=== PATIENT | female | born 1935 | race Two or more races ===

== ENCOUNTER 2016-12-30 01:05 | Emergency (ER) | payer MEDICARE, OTHER ==
[~2016-12-30] VITALS: Ht 137.2 cm; Wt 72.6 kg
[~2016-12-30 01:05] MED LIST: ACET325T16 PO; ASPI81TA44 PO; Calcium Acetate PO; FOLI0.8T3 PO; HYDR-2666 PO; PANT40TA5 PO; POLY17PO5 PO
[2016-12-30] MEDS ORDERED: LORAZEPAM 0.5 MG TABLET. PO ONE (01:30)
--- NOTE | 2016-12-30 01:42 | PHYS DOC ---
Past Medical History Past Medical History: GERD, Hypertension, Renal Failure Additional Past Medical Histor: ESRD on Dialysis Past Surgical History: Other Additional Past Surgical Histo: dialysis catheter R chest and L FA fistula Alcohol Use: None Drug Use: None Adult General Chief Complaint Chief Complaint: HYPERTENSION HPI HPI Patient is a 81 year old female who presents with hypertension and anxiety. Patient accompanied by family contribute to history. She is feeling anxious tonight and checked her blood pressure, with the systolic blood pressure 160 to 170s. She became concerned and wanted to get checked out of the hospital. She denies any pain, specifically chest pain. She also denies shortness of breath. Only other complaint is right upper extremity swelling for the past month, ever since she had an IV placed in the right arm. Review of Systems Review of Systems Constitutional: Denies fever or chills Eyes: Denies change in visual acuity or eye pain HENT: Denies nasal congestion or sore throat Respiratory: Denies cough or shortness of breath Cardiovascular: Denies chest pain GI: Denies abdominal pain, nausea, vomiting, bloody stools or diarrhea : Denies dysuria or hematuria Musculoskeletal: Denies back pain or joint pain. RUE swelling Integument: Denies rash or skin lesions Neurologic: Denies headache, focal weakness or sensory changes Psych: Anxiety Current Medications Current Medications Current Medications Medications (Trade) Dose Ordered Sig/Emmy Start Time Stop Time Status Last Admin Dose Admin Lorazepam (Ativan) 0.5 mg 1X ONCE 12/30/16 01:45 12/30/16 01:46 DC 12/30/16 01:39 0.5 MG Allergies Allergies Allergies Coded Allergies Type Severity Reaction Last Updated Verified No Known Drug Allergies 04/27/16 No Physical Exam Physical Exam Constitutional: Well developed, well nourished, no acute distress, non-toxic appearance HENT: Normocephalic, atraumatic, bilateral external ears normal Eyes: EOMI, conjunctiva normal, no discharge Neck: Normal range of motion, no stridor Cardiovascular: Heart rate normal, regular rhythm, no murmur Lungs & Thorax: Fine crackles throughout Abdomen: Bowel sounds normal, soft, non-distended, no TTP Skin: Warm, dry, no erythema, no rash Extremities: RUE edema, 2+ radial pulse, motor function and sensation to light touch intact Neurologic: Alert and oriented X 3, no gross deficits noted Psychologic: Anxious Current Patient Data Vital Signs Vital Signs Date Time Temp Pulse Resp B/P Pulse Ox O2 Delivery O2 Flow Rate FiO2 12/30/16 04:00 46 14 120/57 100 Room Air 12/30/16 01:07 97.6 97.6 Lab Values Laboratory Tests Test 12/30/16 01:50 White Blood Count 5.2x10^3/uL (4.0-11.0) Red Blood Count 2.86x10^6/uL (3.50-5.40) L Hemoglobin 10.0g/dL (12.0-15.5) L Hematocrit 30.0% (36.0-47.0) L Mean Corpuscular Volume 105fL (79-100) H Mean Corpuscular Hemoglobin 35pg (25-35) Mean Corpuscular Hemoglobin Concent 33g/dL (31-37) Red Cell Distribution Width 14.8% (11.5-14.5) H Platelet Count 261x10^3/uL (140-400) Neutrophils (%) (Auto) 63% (31-73) Lymphocytes (%) (Auto) 25% (24-48) Monocytes (%) (Auto) 10% (0-9) H Eosinophils (%) (Auto) 2% (0-3) Basophils (%) (Auto) 1% (0-3) Neutrophils # (Auto) 3.3x10^3uL (1.8-7.7) Lymphocytes # (Auto) 1.3x10^3/uL (1.0-4.8) Monocytes # (Auto) 0.5x10^3/uL (0.0-1.1) Eosinophils # (Auto) 0.1x10^3/uL (0.0-0.7) Basophils # (Auto) 0.0x10^3/uL (0.0-0.2) Sodium Level 144mmol/L (136-145) Potassium Level 4.6mmol/L (3.5-5.1) Chloride Level 104mmol/L (98-107) Carbon Dioxide Level 29mmol/L (21-32) Anion Gap 11 (6-14) Blood Urea Nitrogen 52mg/dL (7-20) H Creatinine 6.9mg/dL (0.6-1.0) H Estimated GFR (Cockcroft-Gault) 5.7 Glucose Level 116mg/dL (70-99) H Calcium Level 8.9mg/dL (8.5-10.1) Troponin I Quantitative < 0.017ng/mL (0.000-0.055) TZ-Uqi-R-Type Natriuretic Peptide 3929pg/mL (0-449) H Laboratory Tests 12/30/16 01:50 Laboratory Tests 12/30/16 01:50 EKG EKG EKG (my read): sinus rhythm, rate 62, LAD, intervals wnl, IVCD, nonspecific ST/ T changes Radiology/Procedures Radiology/Procedures CXR (my read): No significant change from prior RUE US: IMPRESSION 1. Extensive superficial edema in the right upper extremity. 2. Negative for acute deep venous thrombosis. Course & Med Decision Making Course & Med Decision Making Pertinent Labs and Imaging studies reviewed. (See chart for details) Patient is 81-year-old female who presents with hypertension, anxiety, right upper extremity swelling. Blood pressure okay in ED, will observe and treat if it becomes significantly elevated. Will give small dose of Ativan for anxiety. Will check EKG, chest x-ray, right upper extremity ultrasound, labs to evaluate. Imaging results as above. Unclear etiology of right upper extremity swelling, however given duration we will let her follow up with her primary care physician for this. Labs notable for anemia (at baseline), elevated BNP ( no prior to compare, likely largely due to ESRD). patient is scheduled for dialysis today so we will await that for fluid removal. Discussed results with patient and family; patient feeling better at this time. Discussed option of discharge with outpatient dialysis and then outpatient follow up vs admission; patient would like to go home. Discharged with instructions for follow up, return precautions. Dragon Disclaimer Dragon Disclaimer This electronic medical record was generated, in whole or in part, using a voice recognition dictation system. Departure Departure Impression: Primary Impression: Hypertension Additional Impression: Anxiety Disposition: HOME, SELF-CARE Condition: STABLE Referrals: NO PCP (PCP) Patient Instructions: Anxiety and Panic Attacks, Hypertension Additional Instructions: Thank you for allowing us to provide care today in the Emergency Department. Be sure you go to your dialysis appointment later today. Schedule a follow up appointment with your primary care doctor as soon as possible. Return promptly to the Emergency Department if you develop any new or concerning symptoms. Problem Qualifiers JACKIE,ABI MD Dec 30, 2016 01:42
[2016-12-30] MEDS ORDERED: LORAZEPAM 1 MG TABLET. PO ONE (01:45)
[2016-12-30 02:00] LABS: BASO % 1 % (0-3); EOS % 2 % (0-3); LYMPH # 1.3 x10^3/uL (1.0-4.8); LYMPH % 25 % (24-48); MEAN CORPUSCULAR HEMOGLOBIN 35 pg (25-35); MEAN CORPUSCULAR HGB CONC 33 g/dL (31-37); MEAN CORPUSCULAR VOLUME 105 fL (79-100); MONO % 10 % (0-9); NEUT % 63 % (31-73); PLATELET COUNT 261 x10^3/uL (140-400); RED BLOOD COUNT 2.86 x10^6/uL (3.50-5.40); RED CELL DISTRIBUTION WIDTH 14.8 % (11.5-14.5); WHITE BLOOD COUNT 5.2 x10^3/uL (4.0-11.0)
[2016-12-30 02:11] LABS: CALCIUM 8.9 mg/dL (8.5-10.1); CREATININE 6.9 mg/dL (0.6-1.0); GFR 5.7; POTASSIUM 4.6 mmol/L (3.5-5.1)
--- NOTE | 2016-12-30 02:50 | RAD ---
PROCEDURE Venous Doppler right upper extremity HISTORY RT ARM SWELLING SINCE LAST HOSPITAL STAY 1 MONTH AGO, TECHNIQUE Doppler ultrasound was utilized to evaluate the veins of the right upper extremity. Real-time imaging with compression, color-flow imaging and spectral Doppler with augmentation were utilized. COMPARISON None FINDINGS The jugular vein is compressible and has flow with color imaging. The visualized portion of the subclavian vein has flow with color imaging and normal antegrade laid flow with augmentation. The axillary and brachial veins are compressible and have flow with color imaging. The basilic vein is compressible and has flow with color imaging. There is edema in the upper arm and in the forearm. The radial and ulnar veins of the forearm were identified and have flow with color imaging although not optimally evaluated due to the edema. IMPRESSION 1. Extensive superficial edema in the right upper extremity. 2. Negative for acute deep venous thrombosis. Electronically signed by: Bar Landon MD (Dec 30, 2016 02:48:35)
[2016-12-30 04:00] VITALS: BP 120/57
--- NOTE | 2016-12-30 06:47 | EKG ---
[facility] [address] [place] [address] Test Date: 2016-12-30 Test Time: 01:43:58 Pat Name: MANUEL REY Department: Room: Gender: F Butt Trimmer: : 1935 Requested By: ABI MEJIA Order Number: [id number] Reading MD: Andrea Motley Measurements Intervals [place] Rate: 62 P: 2 [place]: 172 QRS: -58 QRSD: 130 T: 42 QT: 446 QTc: 455 Interpretive Statements SINUS RHYTHM ABNORMAL LEFT AXIS DEVIATION S1,S2,S3 PATTERN LEFT ANTERIOR FASCICULAR BLOCK NON SPECIFIC INTRAVENTRICULAR BLOCK RVH WITH REPOLARIZATION ABNORMALITY RI6.01 Unconfirmed report No previous ECG available for comparison Electronically Signed On 01-06-2017 10:27:07 CHEMICAL DEPENDENCY ATTENDANT by Andrea Motley
--- NOTE | 2016-12-30 07:15 | RAD ---
Chest, 2 views, 12/30/2016: History: Abnormal breath sounds Comparison is made to a study from 12/04/2016. A right-sided dialysis type catheter remains in place extending into the superior aspect of the right atrium. The heart is at the upper limits of normal in size. There is calcific plaquing of aorta. Prominent pulmonary markings are unchanged and are probably due to fibrosis. No superimposed acute infiltrate is seen. There is no evidence of pleural fluid. The bony structures are demineralized. There is a mild thoracic scoliosis with scattered degenerative changes. IMPRESSION: 1. Unchanged prominence of the pulmonary markings, probably due to fibrosis. 2. Aortic atherosclerosis. 3. No acute cardiopulmonary abnormality is detected.
== END 2016-12-30 04:25 | disposition home or self-care (01) ==
LOC: ER 01:05
DX: I12.0 Hypertensive chronic kidney disease with stage 5 chronic kidney disease or end stage renal disease (principal); F41.9 Anxiety disorder, unspecified; N18.6 End stage renal disease; K21.9 Gastro-esophageal reflux disease without esophagitis; M79.89 Other specified soft tissue disorders; Z99.2 Dependence on renal dialysis
CPT/HCPCS: 36415; 71020; 80048; 83880; 84484; 85027; 93005; 93971; 99285-25

== ENCOUNTER 2018-07-21 12:05 | Emergency (ER) | payer MEDICARE, OTHER ==
[~2018-07-21] VITALS: Ht 152.4 cm; Wt 59.0 kg
[~2018-07-21 12:05] MED LIST changes: -ASPI81TA44 PO; +ASPI81TA59 PO; -HYDR-2666 PO; +HYDR-2758 PO; +POLY17PO29 PO; -POLY17PO5 PO
[2018-07-21 12:10] VITALS: BP 102/55
[2018-07-21] MEDS ORDERED: HYDR-971 PO (13:14)
--- NOTE | 2018-07-21 13:15 | PHYS DOC ---
Past Medical History Past Medical History: GERD, Hypertension, Renal Failure Additional Past Medical Histor: ESRD on Dialysis Past Surgical History: Other Additional Past Surgical Histo: dialysis catheter R chest and L FA fistula Alcohol Use: None Drug Use: None Adult General Chief Complaint Chief Complaint: LOWER EXT PAIN [facility] HPI Patient is a 83 year old female who presents with chronic bilateral knee pain of which her pcp had given her joint injection for and was last given 6 months ago. Patient is having bilateral knee pain and is wanting Knee joint injections. Review of Systems Review of Systems Constitutional: Denies fever or chills [] Eyes: Denies change in visual acuity, redness, or eye pain [] HENT: Denies nasal congestion or sore throat [] Respiratory: Denies cough or shortness of breath [] Cardiovascular: No additional information not addressed in HPI [] GI: Denies abdominal pain, nausea, vomiting, bloody stools or diarrhea [] : Denies dysuria or hematuria [] Musculoskeletal: Denies back pain or bilateral knee joint pain [] Integument: Denies rash or skin lesions [] Neurologic: Denies headache, focal weakness or sensory changes [] Endocrine: Denies polyuria or polydipsia [] All other systems were reviewed and found to be within normal limits, except as documented in this note. Allergies Allergies Allergies Coded Allergies Type Severity Reaction Last Updated Verified No Known Drug Allergies 04/27/16 No Physical Exam Physical Exam Constitutional: Well developed, well nourished, no acute distress, non-toxic appearance. [] HENT: Normocephalic, atraumatic, bilateral external ears normal, oropharynx moist, no oral exudates, nose normal. [] Eyes: PERRLA, EOMI, conjunctiva normal, no discharge. [] Neck: Normal range of motion, no tenderness, supple, no stridor. [] Cardiovascular:Heart rate regular rhythm, no murmur [] Lungs & Thorax: Bilateral breath sounds clear to auscultation [] Abdomen: Bowel sounds normal, soft, no tenderness, no masses, no pulsatile masses. [] Skin: Warm, dry, no erythema, no rash. [] Back: No tenderness, no CVA tenderness. [] Extremities: bilateral knee joint tenderness, no cyanosis, no clubbing, ROM intact, no edema. [] Neurologic: Alert and oriented X 3, normal motor function, normal sensory function, no focal deficits noted. [] Psychologic: Affect normal, judgement normal, mood normal. [] Current Patient Data Vital Signs Vital Signs Date Time Temp Pulse Resp B/P (MAP) Pulse Ox O2 Delivery O2 Flow Rate FiO2 07/21/18 12:10 98.0 61 18 102/55 (71) Room Air 98.0 EKG EKG [] Radiology/Procedures Radiology/Procedures [] Course & Med Decision Making Course & Med Decision Making Patient is a 83 year old female who presents with chronic bilateral knee pain of which her pcp had given her joint injection for and was last given 6 months ago. Patient is having bilateral knee pain and is wanting Knee joint injections. Patient is told that she needs to follow up with her PCP and that we do not do joint injections in the ED. I told her that I would give her some pain medication to help with the pain until she can get in to see her PCP. Patient states she has a appointment in 2 weeks. Patient rates her pain as sharp and a 8/10. Upon examination the knee joints were slightly tender but not edematous, hot or red. Patient is afebrile. Homans sign is negative. Patient has no extremity edema and bilateral pedal pulses are present. Patient does not have normal ROM because of pain and stiffness. Patient is given a prescription for Odin. Patient to follow up with her PCP. [] Dragon Disclaimer Dragon Disclaimer This electronic medical record was generated, in whole or in part, using a voice recognition dictation system. Departure Departure Impression: Primary Impression: Arthritis Disposition: 01 HOME, SELF-CARE Condition: STABLE Referrals: RADHA REY (PCP) Patient Instructions: Arthritis, Nonspecific Additional Instructions: Follow up with you primary care doctor. Do not take more Tylenol with the Odin prescription. Scripts Hydrocodone/Apap 5-325 (NORCO 5-325 TABLET) 1 Each Tablet 1 TAB PO PRN Q6HRS PRN for PAIN, #10 TAB 0 Refills DO NOT TAKE MORE TYLENOL WITH THIS MEDICATION Prov: JOE CORRAL APRN 07/21/18 JOE CORRAL APRN Jul 21, 2018 13:15
== END 2018-07-21 13:35 | disposition home or self-care (01) ==
LOC: ER 12:05
DX: M17.0 Bilateral primary osteoarthritis of knee (principal); G89.29 Other chronic pain; K21.9 Gastro-esophageal reflux disease without esophagitis; I12.0 Hypertensive chronic kidney disease with stage 5 chronic kidney disease or end stage renal disease; N18.6 End stage renal disease; Z99.2 Dependence on renal dialysis
CPT/HCPCS: 99283

== ENCOUNTER → 2018-10-22 | Outpatient (CLI) | payer MEDICARE, OTHER ==
[~2018-10-22] MED LIST changes: -HYDR-2758 PO; +HYDR-2761 PO; +HYDR-3164 PO
--- NOTE | 2018-10-22 16:43 | KCIC ---
CHEST PA LATERAL Clinical indications: Fibrosis. COMPARISON: December 30, 2016. Findings: Chronic interstitial lung disease is again evident and is stable. No new lung infiltrate or pleural effusion or pulmonary edema or lung mass or pneumothorax is seen. Heart size mildly enlarged but stable. Right IJ central line is unchanged in position. The pulmonary vasculature, mediastinum and both britta are unremarkable. Scoliosis is seen. Impression: No new radiographic abnormality is seen. Chronic interstitial lung disease bilaterally. Electronically signed by: Sachin Rodriguez MD (10/22/2018 4:39 PM) [place] [id number]
== END | disposition home or self-care (01) ==
LOC: KCIC 13:10
PROVIDERS: ATTEND Internal Medicine Cardiovascular Disease
DX: J84.89 Other specified interstitial pulmonary diseases (principal); I51.7 Cardiomegaly; M41.84 Other forms of scoliosis, thoracic region
CPT/HCPCS: 71046

== ENCOUNTER 2020-04-25 15:47 | Emergency (ER) | payer MEDICARE, OTHER ==
[~2020-04-25] VITALS: Ht 152.4 cm; Wt 55.0 kg
[~2020-04-25 15:47] MED LIST changes: +ACET-2061 PO; -ACET325T16 PO; -PANT40TA5 PO; +PANT40TA77 PO
--- NOTE | 2020-04-25 17:43 | PHYS DOC ---
Past Medical History Past Medical History: GERD, Hypertension, Renal Failure Additional Past Medical Histor: ESRD on Dialysis Past Surgical History: Other Additional Past Surgical Histo: dialysis catheter R chest and L FA fistula Smoking Status: Never Smoker Alcohol Use: None Drug Use: None General Adult EDM: Chief Complaint: HIP PAIN HPI: HPI: Patient is a 85 year old female who presents with seen here after a fall. Patient fell on and was evaluated at an urgent care on Friday images were done of year of her hip, knee, pelvis. Patient received a phone call today that said she had a fracture of her pelvis, possible fracture of left femur, and T12 fracture. Patient is denying pain to left hip and pelvis. Patient was ambulatory with walker upon ER arrival. Patient is reporting some pain to the left posterior aspect of her calf. Urgent care informed her that she should get an ultrasound of that leg to rule out a DVT. Patient does have bruising noted to her left hip. There is 1+ edema to her left lower leg. Patient's family member reports that she does complain of pain when she stands and bears all of her weight on the left leg. Neuro intact and strong pulses. Review of Systems: Review of Systems: Musculoskeletal: Denies back pain or joint pain. Possible hip fracture. [] Heart Score: Risk Factors: Risk Factors: DM, Current or recent (<one month) smoker, HTN, HLP, family history of CAD, obesity. Risk Scores: Score 0 - 3: 2.5% MACE over next 6 weeks - Discharge Home Score 4 - 6: 20.3% MACE over next 6 weeks - Admit for Clinical Observation Score 7 - 10: 72.7% MACE over next 6 weeks - Early Invasive Strategies Allergies: Allergies: Allergies Coded Allergies Type Severity Reaction Last Updated Verified No Known Drug Allergies 04/27/16 No Physical Exam: PE: Constitutional: Well developed, well nourished, no acute distress, non-toxic appearance. [] HENT: Normocephalic, atraumatic, bilateral external ears normal, oropharynx moist, no oral exudates, nose normal. [] Eyes: PERRLA, EOMI, conjunctiva normal, no discharge. [] Neck: Normal range of motion, no tenderness, supple, no stridor. [] Cardiovascular:Heart rate regular rhythm, no murmur [] Lungs & Thorax: Bilateral breath sounds clear to auscultation [] Abdomen: Bowel sounds normal, soft, no tenderness, no masses, no pulsatile masses. [] Skin: Warm, dry, no erythema, no rash. Left hip bruising.[] Back: No tenderness, no CVA tenderness. [] Extremities: Left medial calf tenderness, no cyanosis, no clubbing, ROM intact, Left leg 1+ edema. [] Neurologic: Alert and oriented X 3, normal motor function, normal sensory funct ion, no focal deficits noted. [] Psychologic: Affect normal, judgement normal, mood normal. [] Current Patient Data: Vital Signs: Vital Signs Date Time Temp Pulse Resp B/P (MAP) Pulse Ox O2 Delivery O2 Flow Rate FiO2 04/25/20 16:14 98.3 60 20 154/65 (94) 97 Room Air 98.3 EKG: EKG: [] Radiology/Procedures: Radiology/Procedures: [] Impression: [facility] [address] [place], [place] [id number] IMAGING REPORT Signed PATIENT: MANUEL REY ACCOUNT: [id number] : 1935 LOCATION: ER AGE: 85 SEX: F EXAM STATUS: REG ER ORD. PHYSICIAN: JOE CORRAL APRN REASON: POSSIBLE FRACTURE PROCEDURE: LEFT FEMUR XRAY EXAM: AP pelvis, lateral views of both hips AP and lateral view of the left femur DATE: 04/25/2020 5:32 PM INDICATION: Reason: POSSIBLE FRACTURE / Spl. Instructions: / History: COMPARISON: 04/03/2017 FINDINGS: Marked osteopenia limits evaluation for acute fracture. Mild deformity of the left superior and inferior pubic ramus likely from old fractures as seen on 04/03/2017. There is cortical offset at the right superior pubic ramus suspicious for nondisplaced fracture. No definite left femur fracture is seen. Atherosclerotic vascular calcifications are seen. Large volume colonic stool content and small and large bowel gas is seen obscuring the sacrum and pelvic wings.. Sacral plasty changes are seen. IMPRESSION: 1. Marked osteopenia as well as prominent overlying bowel gas and stool significantly limits evaluation for acute fracture. Within these constraints: 2. Suspected acute right superior pubic ramus fracture. This can be confirmed by CT or MRI. 3. Chronic appearing left superior and inferior pubic rami fractures. Electronically signed by: Dyllan Portillo MD (04/25/2020 6:11 PM) [facility] DICTATED and SIGNED BY: DYLLAN PORTILLO MD DATE: 04/25/20 181 [facility] [address] [place] [address] IMAGING REPORT Signed PATIENT: MANUEL REY ACCOUNT: [id number] : 1935 LOCATION: ER AGE: 85 SEX: F EXAM STATUS: REG ER ORD. PHYSICIAN: JOE OCRRAL APRN REASON: SWELLING PROCEDURE: VENOUS LOWER EXTREMITY LEFT VENOUS LOWER EXTREMITY LEFT 04/25/2020 5:18 PM Clinical Information: Swelling Comparison: None. Technique: Multiple grayscale, color Doppler, and spectral Doppler sonographic images of the lower extremity venous structures were obtained. Findings: The left common femoral, femoral, and popliteal veins exhibit normal compression, respiratory phasicity, and augmentation. No intraluminal thrombi are identified. Color Doppler flow is demonstrated in the left posterior tibial veins. Greater saphenous vein patent at the saphenofemoral junction. Lesser saphenous vein is thrombosed. Popliteal fossa complex fluid collection measures 3.4 x 2.3 x 0.5 cm. Impression: 1. No evidence of deep venous thrombosis. 2. Lesser saphenous vein is thrombosed. 3. Popliteal fossa complex fluid collection measures 3.4 x 2.3 x 0.5 cm. Complicated Yee's cyst versus hematoma or ruptured Yee cyst may have similar appearance. Electronically signed by: Richie Beasley MD (04/25/2020 7:01 PM) [facility] DICTATED and SIGNED BY: RICHIE BEASLEY MD DATE: 04/25/20 190 [facility] [address] [place] [address] IMAGING REPORT Signed PATIENT: MANUEL REY ACCOUNT: [id number] : 1935 LOCATION: ER AGE: 85 SEX: F EXAM STATUS: REG ER ORD. PHYSICIAN: JOE CORRAL APRN REASON: POSSIBLE FRACTURE PROCEDURE: LUMBAR SPINE MIN 4V THORACIC SPINE 3V, LUMBAR SPINE MIN 4V 04/25/2020 5:18 PM INDICATION: Fracture COMPARISON: None available. TECHNIQUE: 3 views of the thoracic spine and 5 views of the lumbar spine are provided. FINDINGS/ IMPRESSION: 1. Thoracic spine: There is extra convex scoliosis of thoracic spine. Diffuse osteopenia limits evaluation of fine osseous detail. If there is persistent clinical concern, further evaluation with CT may be of benefit. Mild height loss is suspected in the lower thoracic spine. 2. Lumbar spine: There is subtle height loss involving L5 with increased sclerosis which could represent an acute compression deformity without significant height loss. Bilateral sacral spinal augmentation changes are identified. Alignment of the lumbar spine is normal. Electronically signed by: Richie Beasley MD (04/25/2020 6:15 PM) [facility] DICTATED and SIGNED BY: RICHIE BEASLEY MD DATE: 04/25/201814 Course & Med Decision Making: Course & Med Decision Making Pertinent Labs and Imaging studies reviewed. (See chart for details) Alert and oriented. Speaks in full clear sentences. Denies any pain. See HPI. Patient is Micronesian-speaking and her granddaughter is in the room interpreting for her. Urgent care had stated that they were unsure of her fractures noted were previous or new. Patient had a fall previously 4 years ago and had known hip left hip fracture. Ambulatory with steady gait. Skin pink warm and dry. Patient to follow-up with her primary care concerning the thrombosis. She is to follow-up with orthopedic concerning her fracture. Patient is stable and she is ambulatory with a steady gait. I have gone over patient findings and care plan with Dr Yee and he states that the patient does not need any blood thinners at this time. He states that the patient is ambulatory and not in a lot of pain that she can follow-up with orthopedic for her fracture. [] Dragon Disclaimer: Dragon Disclaimer: This electronic medical record was generated, in whole or in part, using a voice recognition dictation system. Departure Departure Impression: Primary Impression: Pubic ramus fracture Qualified Codes: S32.591A - Other specified fracture of right pubis, initial encounter for closed fracture Additional Impression: Saphenous vein clot Qualified Codes: I82.812 - Embolism and thrombosis of superficial veins of l eft lower extremity Disposition: 01 HOME, SELF-CARE Condition: STABLE Referrals: RADHA REY (PCP) SAL BRONSON MD Patient Instructions: Fall Prevention and Home Safety, [id number], Medical Screening Exam Additional Instructions: Follow-up with your primary care provider concerning the saphenous vein thrombosis. Follow-up with orthopedic consult for the pubic fracture. Justicifation of Admission Dx: Justifications for Admission: Justification of Admission Dx: N/A JOE CORRAL ELECTRICAL SYSTEMS ENGINEER Apr 25, 2020 17:43
--- NOTE | 2020-04-25 18:14 | RAD ---
EXAM: AP pelvis, lateral views of both hips AP and lateral view of the left femur DATE: 04/25/2020 5:32 PM INDICATION: Reason: POSSIBLE FRACTURE / Spl. Instructions: / History: COMPARISON: 04/03/2017 FINDINGS: Marked osteopenia limits evaluation for acute fracture. Mild deformity of the left superior and inferior pubic ramus likely from old fractures as seen on 04/03/2017. There is cortical offset at the right superior pubic ramus suspicious for nondisplaced fracture. No definite left femur fracture is seen. Atherosclerotic vascular calcifications are seen. Large volume colonic stool content and small and large bowel gas is seen obscuring the sacrum and pelvic wings.. Sacral plasty changes are seen. IMPRESSION: 1. Marked osteopenia as well as prominent overlying bowel gas and stool significantly limits evaluation for acute fracture. Within these constraints: 2. Suspected acute right superior pubic ramus fracture. This can be confirmed by CT or MRI. 3. Chronic appearing left superior and inferior pubic rami fractures. Electronically signed by: Dyllan San MD (04/25/2020 6:11 PM) [facility]
--- NOTE | 2020-04-25 18:18 | RAD ---
THORACIC SPINE 3V, LUMBAR SPINE MIN 4V 04/25/2020 5:18 PM INDICATION: Fracture COMPARISON: None available. TECHNIQUE: 3 views of the thoracic spine and 5 views of the lumbar spine are provided. FINDINGS/ IMPRESSION: 1. Thoracic spine: There is extra convex scoliosis of thoracic spine. Diffuse osteopenia limits evaluation of fine osseous detail. If there is persistent clinical concern, further evaluation with CT may be of benefit. Mild height loss is suspected in the lower thoracic spine. 2. Lumbar spine: There is subtle height loss involving L5 with increased sclerosis which could represent an acute compression deformity without significant height loss. Bilateral sacral spinal augmentation changes are identified. Alignment of the lumbar spine is normal. Electronically signed by: Melissa Larson MD (04/25/2020 6:15 PM) PATIENCE
--- NOTE | 2020-04-25 18:18 | RAD ---
THORACIC SPINE 3V, LUMBAR SPINE MIN 4V 04/25/2020 5:18 PM INDICATION: Fracture COMPARISON: None available. TECHNIQUE: 3 views of the thoracic spine and 5 views of the lumbar spine are provided. FINDINGS/ IMPRESSION: 1. Thoracic spine: There is extra convex scoliosis of thoracic spine. Diffuse osteopenia limits evaluation of fine osseous detail. If there is persistent clinical concern, further evaluation with CT may be of benefit. Mild height loss is suspected in the lower thoracic spine. 2. Lumbar spine: There is subtle height loss involving L5 with increased sclerosis which could represent an acute compression deformity without significant height loss. Bilateral sacral spinal augmentation changes are identified. Alignment of the lumbar spine is normal. Electronically signed by: Melissa aLrson MD (04/25/2020 6:15 PM) PATIENCE
[2020-04-25 18:26] LABS: BASO # 0.1 x10^3/uL (0.0-0.2); BASO % 1 % (0-3); EOS # 0.1 x10^3/uL (0.0-0.7); EOS % 2 % (0-3); HEMATOCRIT 30.4 % (36.0-47.0); HEMOGLOBIN 10.5 g/dL (12.0-15.5); LYMPH # 1.7 x10^3/uL (1.0-4.8); LYMPH % 32 % (24-48); MEAN CORPUSCULAR HEMOGLOBIN 34 pg (25-35); MEAN CORPUSCULAR HGB CONC 34 g/dL (31-37); MEAN CORPUSCULAR VOLUME 100 fL (79-100); MONO # 0.6 x10^3/uL (0.0-1.1); MONO % 12 % (0-9); NEUT # 2.7 x10^3/uL (1.8-7.7); NEUT % 53 % (31-73); PLATELET COUNT 251 x10^3/uL (140-400); RED BLOOD COUNT 3.05 x10^6/uL (3.50-5.40); RED CELL DISTRIBUTION WIDTH 14.5 % (11.5-14.5); WHITE BLOOD COUNT 5.2 x10^3/uL (4.0-11.0)
[2020-04-25 18:32] LABS: CALCIUM 8.4 mg/dL (8.5-10.1); CREATININE 5.3 mg/dL (0.6-1.0); GFR 7.7; POTASSIUM 3.8 mmol/L (3.5-5.1)
[2020-04-25 18:38] LABS: ALBUMIN 3.2 g/dL (3.4-5.0); ALBUMIN/GLOBULIN RATIO 0.8 (1.0-1.7); TOTAL BILIRUBIN 0.4 mg/dL (0.2-1.0); TOTAL PROTEIN 7.3 g/dL (6.4-8.2)
[2020-04-25 18:40] LABS: PROTHROMBIN TIME PATIENT 13.6 SEC (11.7-14.0)
--- NOTE | 2020-04-25 19:04 | RAD ---
VENOUS LOWER EXTREMITY LEFT 04/25/2020 5:18 PM Clinical Information: Swelling Comparison: None. Technique: Multiple grayscale, color Doppler, and spectral Doppler sonographic images of the lower extremity venous structures were obtained. Findings: The left common femoral, femoral, and popliteal veins exhibit normal compression, respiratory phasicity, and augmentation. No intraluminal thrombi are identified. Color Doppler flow is demonstrated in the left posterior tibial veins. Greater saphenous vein patent at the saphenofemoral junction. Lesser saphenous vein is thrombosed. Popliteal fossa complex fluid collection measures 3.4 x 2.3 x 0.5 cm. Impression: 1. No evidence of deep venous thrombosis. 2. Lesser saphenous vein is thrombosed. 3. Popliteal fossa complex fluid collection measures 3.4 x 2.3 x 0.5 cm. Complicated Yee's cyst versus hematoma or ruptured Yee cyst may have similar appearance. Electronically signed by: Melissa Larson MD (04/25/2020 7:01 PM) [facility]
[2020-04-25 20:11] VITALS: BP 168/70
== END 2020-04-25 20:35 | disposition home or self-care (01) ==
LOC: ER 15:47
DX: S32.591A Other specified fracture of right pubis, initial encounter for closed fracture (principal); I82.812 Embolism and thrombosis of superficial veins of left lower extremity; M41.84 Other forms of scoliosis, thoracic region; M54.5 Low back pain; Z99.2 Dependence on renal dialysis; I12.0 Hypertensive chronic kidney disease with stage 5 chronic kidney disease or end stage renal disease; N18.6 End stage renal disease; K21.9 Gastro-esophageal reflux disease without esophagitis; W18.39XA Other fall on same level, initial encounter; Y93.89 Activity, other specified; Y92.89 Other specified places as the place of occurrence of the external cause; Y99.8 Other external cause status
CPT/HCPCS: 36415; 72072; 72110; 73521; 73552; 80053; 85025; 85610; 93971; 99285-25

== ENCOUNTER 2020-07-06 13:15 | Inpatient (IN) | payer MEDICARE, OTHER ==
[~2020-07-06] VITALS: Ht 152.4 cm; Wt 54.7 kg
[2020-07-06 13:54] LABS: BASO % 0 % (0-3); EOS % 0 % (0-3); HEMATOCRIT 30.3 % (36.0-47.0); HEMOGLOBIN 10.5 g/dL (12.0-15.5); LYMPH # 0.6 x10^3/uL (1.0-4.8); LYMPH % 6 % (24-48); MEAN CORPUSCULAR HEMOGLOBIN 34 pg (25-35); MEAN CORPUSCULAR HGB CONC 35 g/dL (31-37); MEAN CORPUSCULAR VOLUME 99 fL (79-100); MONO # 0.7 x10^3/uL (0.0-1.1); MONO % 8 % (0-9); NEUT # 8.1 x10^3/uL (1.8-7.7); NEUT % 86 % (31-73); PLATELET COUNT 251 x10^3/uL (140-400); RED BLOOD COUNT 3.07 x10^6/uL (3.50-5.40); RED CELL DISTRIBUTION WIDTH 14.9 % (11.5-14.5); WHITE BLOOD COUNT 9.4 x10^3/uL (4.0-11.0)
[2020-07-06 14:03] LABS: CALCIUM 8.4 mg/dL (8.5-10.1); GFR 8.2; POTASSIUM 3.6 mmol/L (3.5-5.1)
[2020-07-06 14:06] LABS: PROTHROMBIN TIME PATIENT 14.2 SEC (11.7-14.0)
[2020-07-06 14:09] LABS: ALBUMIN 2.4 g/dL (3.4-5.0); ALBUMIN/GLOBULIN RATIO 0.4 (1.0-1.7); TOTAL BILIRUBIN 0.5 mg/dL (0.2-1.0); TOTAL PROTEIN 7.8 g/dL (6.4-8.2)
[2020-07-06 14:10] LABS: % BANDS 2 % (0-9); % LYMPHS 8 % (24-48); % MONOS 4 % (0-10); % SEGS 86 % (35-66); PLT ESTIMATE ADEQUATE (ADEQUATE)
--- NOTE | 2020-07-06 14:14 | RAD ---
PORTABLE CHEST 1V 07/06/2020 1:45 PM INDICATION: Shortness of air COMPARISON: 10/22/2018 TECHNIQUE: Portable frontal view of the chest is provided. FINDINGS: The cardiomediastinal silhouette is within normal limits. Right chest wall double-lumen dialysis catheter is identified in similar position. There is increased interstitial thickening in the right upper lobe and to a lesser extent left upper lobe suspicious for multifocal pulmonary infiltrates. Chronic interstitial changes are present. No significant pleural effusions or pneumothorax. 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 IMPRESSION: Chronic interstitial changes are identified with superimposed increased interstitial airspace disease in the upper lobes suggestive of multifocal pulmonary infiltrates. Recommend short-term follow-up two-view chest radiograph. Interstitial edema may have similar appearance. Electronically signed by: Melissa Larson MD (07/06/2020 2:12 PM) PATIENCE
--- NOTE | 2020-07-06 14:23 | EKG ---
[facility] [address] [place] [address] Test Date: 2020-07-06 Test Time: 13:35:37 Pat Name: MANUEL REY Department: Room: Gender: F Liquid [employer] Supervisor: : 1935 Requested By: JARROD MASSEY Order Number: [id number] Reading MD: Measurements Intervals Foley Rate: 76 P: 0 MO: 180 QRS: -84 QRSD: 126 T: 36 QT: 396 QTc: 450 Interpretive Statements SINUS RHYTHM ABNORMAL LEFT AXIS DEVIATION S1,S2,S3 PATTERN LEFT ANTERIOR FASCICULAR BLOCK NON SPECIFIC INTRAVENTRICULAR BLOCK RVH WITH REPOLARIZATION ABNORMALITY QRS(T) CONTOUR ABNORMALITY CONSIDER ANTEROSEPTAL MYOCARDIAL DAMAGE ABNORMAL ECG RI6.02 No previous ECG available for comparison
--- NOTE | 2020-07-06 14:30 | PHYS DOC ---
Past Medical History Past Medical History: GERD, Hypertension, Renal Failure Additional Past Medical Histor: ESRD on Dialysis Past Surgical History: Other Additional Past Surgical Histo: dialysis catheter R chest and L FA fistula Smoking Status: Never Smoker Alcohol Use: None Drug Use: None General Adult EDM: Chief Complaint: SHORTNESS OF BREATH HPI: HPI: Patient is a 85 year old female who was taken here by EMS from the urgent care center due to fever, trouble breathing, hypoxia. Per report patient has been sick with a cough for about 2 weeks. She also had fever and chill. Patient history of end-stage renal failure on hemodialysis. Patient went to urgent CARE center today for above reason. Patient did not speak much. Information was obt ained using a it desktop support technician phone. Review of Systems: Review of Systems: Constitutional: Positive for fever or chills. [] Eyes: Denies change in visual acuity. [] HENT: Denies nasal congestion or sore throat. [] Respiratory: Positive for cough or shortness of breath. [] Cardiovascular: Denies chest pain or edema. [] GI: Denies abdominal pain, nausea, vomiting, bloody stools or diarrhea. [] : Denies dysuria. [] Musculoskeletal: Denies back pain or joint pain. [] Integument: Denies rash. [] Neurologic: Denies headache, focal weakness or sensory changes. [] Endocrine: Denies polyuria or polydipsia. [] Lymphatic: Denies swollen glands. [] Psychiatric: Denies depression or anxiety. [] Heart Score: Risk Factors: Risk Factors: DM, Current or recent (<one month) smoker, HTN, HLP, family history of CAD, obesity. Risk Scores: Score 0 - 3: 2.5% MACE over next 6 weeks - Discharge Home Score 4 - 6: 20.3% MACE over next 6 weeks - Admit for Clinical Observation Score 7 - 10: 72.7% MACE over next 6 weeks - Early Invasive Strategies Allergies: Allergies: Allergies Coded Allergies Type Severity Reaction Last Updated Verified No Known Drug Allergies 04/27/16 No Physical Exam: PE: Constitutional: Well developed, well nourished, no acute distress, non-toxic appearance. [] HENT: Normocephalic, atraumatic, bilateral external ears normal, oropharynx moist, no oral exudates, nose normal. [] Eyes: PERRLA, EOMI, conjunctiva normal, no discharge. [] Neck: Normal range of motion, no tenderness, supple, no stridor. [] Cardiovascular:Heart rate regular rhythm, no murmur [] Lungs & Thorax: Bilateral breath sounds with diffuse crackles and rales. Abdomen: Bowel sounds normal, soft, no tenderness, no masses, no pulsatile masses. Skin: Warm, dry, no erythema, no rash. [] Back: No tenderness, no CVA tenderness. [] Extremities: No tenderness, no cyanosis, no clubbing, ROM intact, no edema. [] Neurologic: Alert and awake, normal motor function, normal sensory function, no focal deficits noted. [] Psychologic: Affect normal, judgement normal, mood normal. [] Current Patient Data: Labs: Laboratory Tests Test 07/06/20 13:30 White Blood Count 9.4 x10^3/uL (4.0-11.0) Red Blood Count 3.07 x10^6/uL (3.50-5.40) L Hemoglobin 10.5 g/dL (12.0-15.5) L Hematocrit 30.3 % (36.0-47.0) L Mean Corpuscular Volume 99 fL (79-100) Mean Corpuscular Hemoglobin 34 pg (25-35) Mean Corpuscular Hemoglobin Concent 35 g/dL (31-37) Red Cell Distribution Width 14.9 % (11.5-14.5) H Platelet Count 251 x10^3/uL (140-400) Neutrophils (%) (Auto) 86 % (31-73) H Lymphocytes (%) (Auto) 6 % (24-48) L Monocytes (%) (Auto) 8 % (0-9) Eosinophils (%) (Auto) 0 % (0-3) Basophils (%) (Auto) 0 % (0-3) Neutrophils # (Auto) 8.1 x10^3/uL (1.8-7.7) H Lymphocytes # (Auto) 0.6 x10^3/uL (1.0-4.8) L Monocytes # (Auto) 0.7 x10^3/uL (0.0-1.1) Eosinophils # (Auto) 0.0 x10^3/uL (0.0-0.7) Basophils # (Auto) 0.0 x10^3/uL (0.0-0.2) Segmented Neutrophils % 86 % (35-66) H Band Neutrophils % 2 % (0-9) Lymphocytes % 8 % (24-48) L Monocytes % 4 % (0-10) Platelet Estimate Adequate (ADEQUATE) Prothrombin Time 14.2 SEC (11.7-14.0) H Prothrombin Time INR 1.1 (0.8-1.1) Activated Partial Thromboplast Time 30 SEC (24-38) Sodium Level 139 mmol/L (136-145) Potassium Level 3.6 mmol/L (3.5-5.1) Chloride Level 98 mmol/L (98-107) Carbon Dioxide Level 32 mmol/L (21-32) Anion Gap 9 (6-14) Blood Urea Nitrogen 38 mg/dL (7-20) H Creatinine 5.0 mg/dL (0.6-1.0) H Estimated GFR (Cockcroft-Gault) 8.2 BUN/Creatinine Ratio 8 (6-20) Glucose Level 109 mg/dL (70-99) H Lactic Acid Level 2.2 mmol/L (0.4-2.0) H Calcium Level 8.4 mg/dL (8.5-10.1) L Total Bilirubin 0.5 mg/dL (0.2-1.0) Aspartate Amino Transferase (AST) 43 U/L (15-37) H Alanine Aminotransferase (ALT) 29 U/L (14-59) Alkaline Phosphatase 164 U/L (46-116) H LR-Hiy-G-Type Natriuretic Peptide 47861 pg/mL (0-449) H Total Protein 7.8 g/dL (6.4-8.2) Albumin 2.4 g/dL (3.4-5.0) L Albumin/Globulin Ratio 0.4 (1.0-1.7) L Lipase 270 U/L (73-393) Laboratory Tests 07/06/20 13:30 Laboratory Tests 07/06/20 13:30 Vital Signs: Vital Signs Date Time Temp Pulse Resp B/P (MAP) Pulse Ox O2 Delivery O2 Flow Rate FiO2 07/06/20 13:20 99.3 75 22 130/61 (84) 97 Nasal Cannula 4.0 99.3 EKG: EKG: EKG was done at 1335, heart rate of 76 bpm, sinus rhythm, no ST segment sophie vation. Radiology/Procedures: Radiology/Procedures: [][facility] [address] [place] [address] IMAGING REPORT Signed PATIENT: MANUEL REY ACCOUNT: [id number] : 1935 LOCATION: ER AGE: 85 SEX: F EXAM STATUS: REG ER ORD. PHYSICIAN: JARROD MASSEY DO REASON: soa PROCEDURE: PORTABLE CHEST 1V PORTABLE CHEST 1V 07/06/2020 1:45 PM INDICATION: Shortness of air COMPARISON: 10/22/2018 TECHNIQUE: Portable frontal view of the chest is provided. FINDINGS: The cardiomediastinal silhouette is within normal limits. Right chest wall double-lumen dialysis catheter is identified in similar position. There is increased interstitial thickening in the right upper lobe and to a lesser extent left upper lobe suspicious for multifocal pulmonary infiltrates. Chronic interstitial changes are present. No significant pleural effusions or pneumothorax. 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 IMPRESSION: Chronic interstitial changes are identified with superimposed increased interstitial airspace disease in the upper lobes suggestive of multifocal pulmonary infiltrates. Recommend short-term follow-up two-view chest radiograph. Interstitial edema may have similar appearance. Electronically signed by: Richie Beasley MD (07/06/2020 2:12 PM) [facility] DICTATED and SIGNED BY: RICHIE BEASLEY MD DATE: 07/06/20 1412 Course & Med Decision Making: Course & Med Decision Making Pertinent Labs and Imaging studies reviewed. (See chart for details) Patient is an 85-year-old female who was brought here due to cough trouble breathing fever chills, she is suspected to have COVID-19 infection. Dragon Disclaimer: Dragon Disclaimer: This electronic medical record was generated, in whole or in part, using a voice recognition dictation system. Departure Departure Impression: Primary Impression: Acute dyspnea Additional Impressions: Suspected 2019 novel coronavirus infection ESRD (end stage renal disease) on dialysis Disposition: ADMITTED INPATIENT Admitting Physician: SHELBIE (Dr. Danial March) Condition: STABLE Referrals: ALHOSSEINI,RADHA H (PCP) Justicifation of Admission Dx: Justifications for Admission: Justification of Admission Dx: Yes Chronic Renal Failure: Hemodynamic Instability JARROD MASSEY DO Jul 06, 2020 14:30
[2020-07-06] MEDS ORDERED: 0.9 % SODIUM CHLORIDE 10 ML DISP.SYRIN. IV PRN (16:15)
[2020-07-06] MEDS ORDERED: ONDANSETRON PF 4 MG/2 ML VIAL. IVP PRN (16:15)
--- NOTE | 2020-07-06 16:19 | PDOC1 ---
History and Physical Date of Admission Date of Admission DATE: 07/06/20 TIME: 16:11 Identification/Chief Complaint Chief Complaint Shortness of breath Source Source: Chart review, Patient History of Present Illness History of Present Illness Patient is an 85-year-old female with past medical history of end-stage renal disease, who presents with worsening shortness of breath over the past 2 weeks. She has been having associated cough productive of yellow mucus. She was seen in urgent care today for her symptoms, and noted to have a temperature greater than 100 F, so she was sent to the emergency department for further evaluation. Upon arrival in the ER she was saturating at 90% on room air. She was placed on 4 L of nasal cannula which improved her O2 saturation. She does not admit to any aggravating or alleviating factors to her symptoms. She denies any vomiting or diarrhea. Past Medical History Cardiovascular: HTN Musculoskeletal: Other Renal/: Chronic renal insuff Past Surgical History Past Surgical History Left arm AV fistula, dialysis catheter placement Past Surgical History: Other Family History Family History: No Significant Social History Smoke: No ALCOHOL: none Drugs: None Current Problem List Problem List Problems Medical Problems: (1) Acute dyspnea Status: Acute (2) ESRD (end stage renal disease) on dialysis Status: Acute (3) Suspected 2019 novel coronavirus infection Status: Acute Current Medications Current Medications Current Medications Methylprednisolone Sodium Succinate (SOLU-Medrol 40MG VIAL) 40 mg BID IV ; Start 07/06/20 at 16:00; Stop 07/16/20 at 15:59 Ascorbic Acid (Vitamin C) 500 mg Q6HRS PO ; Start 07/06/20 at 18:00 Zinc Sulfate (Orazinc) 220 mg DAILY PO ; Start 07/06/20 at 17:00 Vitamin D (Vitamin D3) 5,000 unit DAILY PO ; Start 07/06/20 at 16:00 Active Scripts Active Rico 5-325 Tablet (Acetaminophen/Hydrocodone Bitart) 1 Each Tablet 1 Tab PO PRN Q6HRS PRN DO NOT TAKE MORE TYLENOL WITH THIS MEDICATION Hydrocodone-Apap 5-325 (Hydrocodone Bit/Acetaminophen) 1 Each Tablet 1 Tab PO PRN Q4HRS PRN Pantoprazole Sodium 40 Mg Tablet.dr 40 Mg PO DAILYAC Miralax (Polyethylene Glycol 3350) 17 Gm Powd.pack 17 Gm PO DAILY Nephro-Pavel Tablet (Folic Acid/Vitamin B Comp W-C) 0.8 Mg Tablet 1 Tab PO DAILY [Calcium Acetate] 667 MG Capsule 1,334 Mg PO TIDWMEALS Children's Aspirin (Aspirin) 81 Mg Tab.chew 81 Mg PO DAILYWBKFT Mapap (Acetaminophen) 325 Mg Tablet 650 Mg PO PRN Q6HRS PRN Allergies Allergies: Coded Allergies: No Known Drug Allergies (Unverified , 04/27/16) ROS General: No: Chills, Night Sweats PSYCHOLOGICAL ROS: No: Anxiety, Depression Eyes: No Decreased vision, No Double vision HEENT: No: Nasal congestion, Sore Throat ALLERGY AND IMMUNOLOGY: No: Hives, Itchy/Watery Eyes Hematological and Lymphatic: No: Blood Clots, Swollen Lymph Nodes Respiratory: YES: Cough, Shortness of breath Cardiovascular: No Chest Pain, No Palpitations Gastrointestinal: No Nausea, No Vomiting, No Diarrhea Genitourinary: No Dysuria, No Frequency Musculoskeletal: No Joint Swelling, No Muscle Pain Neurological: No Dizziness, No Numbness/Tingling Skin: No Dry Skin, No Rash Physical Exam General: Alert, Oriented X3, Cooperative HEENT: PERRLA Lungs: Other (Bilateral crackles, increased work of breathing) Heart: RRR, no jug vein distention Cardiovascular: S1, S2 Abdomen: Normal bowel sounds, Soft, No tenderness Extremities: No clubbing, No cyanosis, No edema Skin: No rashes, No significant lesion Neuro: Normal tone, Sensation intact Psych/Mental Status: Mood NL Vitals Vitals Vital Signs Date Time Temp Pulse Resp B/P (MAP) Pulse Ox O2 Delivery O2 Flow Rate FiO2 07/06/20 13:20 99.3 75 22 130/61 (84) 97 Nasal Cannula 4.0 99.3 Labs Labs Laboratory Tests Test 07/06/20 13:30 White Blood Count 9.4 x10^3/uL (4.0-11.0) Red Blood Count 3.07 x10^6/uL (3.50-5.40) Hemoglobin 10.5 g/dL (12.0-15.5) Hematocrit 30.3 % (36.0-47.0) Mean Corpuscular Volume 99 fL (79-100) Mean Corpuscular Hemoglobin 34 pg (25-35) Mean Corpuscular Hemoglobin Concent 35 g/dL (31-37) Red Cell Distribution Width 14.9 % (11.5-14.5) Platelet Count 251 x10^3/uL (140-400) Neutrophils (%) (Auto) 86 % (31-73) Lymphocytes (%) (Auto) 6 % (24-48) Monocytes (%) (Auto) 8 % (0-9) Eosinophils (%) (Auto) 0 % (0-3) Basophils (%) (Auto) 0 % (0-3) Neutrophils # (Auto) 8.1 x10^3/uL (1.8-7.7) Lymphocytes # (Auto) 0.6 x10^3/uL (1.0-4.8) Monocytes # (Auto) 0.7 x10^3/uL (0.0-1.1) Eosinophils # (Auto) 0.0 x10^3/uL (0.0-0.7) Basophils # (Auto) 0.0 x10^3/uL (0.0-0.2) Segmented Neutrophils % 86 % (35-66) Band Neutrophils % 2 % (0-9) Lymphocytes % 8 % (24-48) Monocytes % 4 % (0-10) Platelet Estimate Adequate (ADEQUATE) Prothrombin Time 14.2 SEC (11.7-14.0) Prothromb Time International Ratio 1.1 (0.8-1.1) Activated Partial Thromboplast Time 30 SEC (24-38) Sodium Level 139 mmol/L (136-145) Potassium Level 3.6 mmol/L (3.5-5.1) Chloride Level 98 mmol/L (98-107) Carbon Dioxide Level 32 mmol/L (21-32) Anion Gap 9 (6-14) Blood Urea Nitrogen 38 mg/dL (7-20) Creatinine 5.0 mg/dL (0.6-1.0) Estimated GFR (Cockcroft-Gault) 8.2 BUN/Creatinine Ratio 8 (6-20) Glucose Level 109 mg/dL (70-99) Lactic Acid Level 2.2 mmol/L (0.4-2.0) Calcium Level 8.4 mg/dL (8.5-10.1) Total Bilirubin 0.5 mg/dL (0.2-1.0) Aspartate Amino Transf (AST/SGOT) 43 U/L (15-37) Alanine Aminotransferase (ALT/SGPT) 29 U/L (14-59) Alkaline Phosphatase 164 U/L (46-116) Troponin I Quantitative 0.091 ng/mL (0.000-0.055) TK-Kcn-Y-Type Natriuretic Peptide 40730 pg/mL (0-449) Total Protein 7.8 g/dL (6.4-8.2) Albumin 2.4 g/dL (3.4-5.0) Albumin/Globulin Ratio 0.4 (1.0-1.7) Lipase 270 U/L (73-393) Laboratory Tests Test 07/06/20 13:30 White Blood Count 9.4 x10^3/uL (4.0-11.0) Red Blood Count 3.07 x10^6/uL (3.50-5.40) Hemoglobin 10.5 g/dL (12.0-15.5) Hematocrit 30.3 % (36.0-47.0) Mean Corpuscular Volume 99 fL (79-100) Mean Corpuscular Hemoglobin 34 pg (25-35) Mean Corpuscular Hemoglobin Concent 35 g/dL (31-37) Red Cell Distribution Width 14.9 % (11.5-14.5) Platelet Count 251 x10^3/uL (140-400) Neutrophils (%) (Auto) 86 % (31-73) Lymphocytes (%) (Auto) 6 % (24-48) Monocytes (%) (Auto) 8 % (0-9) Eosinophils (%) (Auto) 0 % (0-3) Basophils (%) (Auto) 0 % (0-3) Neutrophils # (Auto) 8.1 x10^3/uL (1.8-7.7) Lymphocytes # (Auto) 0.6 x10^3/uL (1.0-4.8) Monocytes # (Auto) 0.7 x10^3/uL (0.0-1.1) Eosinophils # (Auto) 0.0 x10^3/uL (0.0-0.7) Basophils # (Auto) 0.0 x10^3/uL (0.0-0.2) Segmented Neutrophils % 86 % (35-66) Band Neutrophils % 2 % (0-9) Lymphocytes % 8 % (24-48) Monocytes % 4 % (0-10) Platelet Estimate Adequate (ADEQUATE) Prothrombin Time 14.2 SEC (11.7-14.0) Prothromb Time International Ratio 1.1 (0.8-1.1) Activated Partial Thromboplast Time 30 SEC (24-38) Sodium Level 139 mmol/L (136-145) Potassium Level 3.6 mmol/L (3.5-5.1) Chloride Level 98 mmol/L (98-107) Carbon Dioxide Level 32 mmol/L (21-32) Anion Gap 9 (6-14) Blood Urea Nitrogen 38 mg/dL (7-20) Creatinine 5.0 mg/dL (0.6-1.0) Estimated GFR (Cockcroft-Gault) 8.2 BUN/Creatinine Ratio 8 (6-20) Glucose Level 109 mg/dL (70-99) Lactic Acid Level 2.2 mmol/L (0.4-2.0) Calcium Level 8.4 mg/dL (8.5-10.1) Total Bilirubin 0.5 mg/dL (0.2-1.0) Aspartate Amino Transf (AST/SGOT) 43 U/L (15-37) Alanine Aminotransferase (ALT/SGPT) 29 U/L (14-59) Alkaline Phosphatase 164 U/L (46-116) Troponin I Quantitative 0.091 ng/mL (0.000-0.055) IM-Kii-A-Type Natriuretic Peptide 54567 pg/mL (0-449) Total Protein 7.8 g/dL (6.4-8.2) Albumin 2.4 g/dL (3.4-5.0) Albumin/Globulin Ratio 0.4 (1.0-1.7) Lipase 270 U/L (73-393) VTE Prophylaxis Ordered VTE Prophylaxis Devices: No VTE Pharmacological Prophylaxi: Yes Assessment/Plan Assessment/Plan Suspected COVID-19, hypoxia, end-stage renal disease on hemodialysis Plan: Patient's symptoms are concerning for COVID-19, with test pending at this time. Her chest x-ray suggestive of multifocal pulmonary infiltrates. Consultation has been placed to pulmonology and nephrology. At this time I will treat patient presumptively COVID-19 positive. Solu-Medrol 40 mg IV twice daily, vitamin C 500 mg every 6 hr, zinc 100 mg p.o. daily, vitamin D 5000 units daily. Patient does not appear toxic, white blood cell count within normal limits, so will withhold antibiotics at this time. Given her requirement of full 4 L oxygen by nasal cannula, will admit to ICU pending further decompensation. LDH, d-dimer, CRP, procalcitonin pending. VTE prophylaxis. Full code, patient has not named a surrogate decision-maker. Justifications for Admission Other Justification ENRIQUE DAY MD Jul 06, 2020 16:19
[2020-07-06] MEDS: methylPREDNISolone SOD SUCC PF 40 MG/ML VIAL. IV SCH ×2 (16:59→21:00)
[2020-07-06] MEDS: ENOXAPARIN 30 MG/0.3 ML SYRINGE. SQ SCH (17:00)
[2020-07-06] MEDS: ASCORBIC ACID 500 MG TABLET PO SCH ×2 (18:00→21:16)
[2020-07-06 19:35] VITALS: BP 178/74
[2020-07-06 20:00] VITALS: BP 159/65
[2020-07-06] MEDS ORDERED: HYDROcodone/APAP 5/325MG 1 TAB TABLET PO PRN (20:00)
[2020-07-06] MEDS ORDERED: ACETAMINOPHEN 325 MG TABLET. PO PRN (20:00)
[2020-07-06] MEDS ORDERED: ALBU2.5V8 INH (20:55)
[2020-07-06] MEDS ORDERED: ESTR42.58 VAG (20:55)
[2020-07-06] MEDS ORDERED: LORA0.5T96 PO (20:55)
[2020-07-06] MEDS ORDERED: PANT40TA6 PO (20:55)
[2020-07-06 21:00] VITALS: BP 149/65
[2020-07-06] MEDS: CHOLECALCIFEROL (VITAMIN D3) 5,000 UNIT CAPSULE PO SCH (21:16)
[2020-07-06] MEDS: ZINC SULFATE 220 MG CAPSULE. PO SCH (21:16)
[2020-07-06] MEDS: FAMOTIDINE 20 MG/2 ML VIAL IVP SCH (21:16)
[2020-07-06 22:00] VITALS: BP 161/70
[2020-07-06 23:00] VITALS: BP 141/63
[2020-07-07] VITALS (18 sets, daily range): BP systolic 118–162; BP diastolic 57–77
[2020-07-07 05:32] LABS: BASO % 0 % (0-3); EOS % 0 % (0-3); HEMATOCRIT 32.3 % (36.0-47.0); HEMOGLOBIN 10.9 g/dL (12.0-15.5); LYMPH # 0.5 x10^3/uL (1.0-4.8); LYMPH % 8 % (24-48); MEAN CORPUSCULAR HEMOGLOBIN 33 pg (25-35); MEAN CORPUSCULAR HGB CONC 34 g/dL (31-37); MEAN CORPUSCULAR VOLUME 99 fL (79-100); MONO # 0.2 x10^3/uL (0.0-1.1); MONO % 4 % (0-9); NEUT # 5.7 x10^3/uL (1.8-7.7); NEUT % 89 % (31-73); PLATELET COUNT 252 x10^3/uL (140-400); RED BLOOD COUNT 3.25 x10^6/uL (3.50-5.40); RED CELL DISTRIBUTION WIDTH 14.9 % (11.5-14.5); WHITE BLOOD COUNT 6.4 x10^3/uL (4.0-11.0)
[2020-07-07 05:46] LABS: CALCIUM 8.9 mg/dL (8.5-10.1); CREATININE 5.8 mg/dL (0.6-1.0); GFR 6.9; POTASSIUM 4.4 mmol/L (3.5-5.1)
[2020-07-07] MEDS: ASCORBIC ACID 500 MG TABLET PO SCH ×4 (06:13→23:47)
[2020-07-07] MEDS: POLYETHYLENE GLYCOL 3350 17 GM PACKET. PO SCH (08:14)
[2020-07-07] MEDS: ZINC SULFATE 220 MG CAPSULE. PO SCH (08:15)
[2020-07-07] MEDS: PANTOPRAZOLE 40 MG TABLET.DR. PO SCH (08:15)
[2020-07-07] MEDS: methylPREDNISolone SOD SUCC PF 40 MG/ML VIAL. IV SCH ×2 (08:15→21:50)
[2020-07-07] MEDS: CALCIUM ACETATE 667 MG CAPSULE PO SCH ×3 (08:15→17:00)
[2020-07-07] MEDS: FOLIC/VIT B COMP W-C (RENAL) TABLET. PO SCH (08:15)
[2020-07-07] MEDS: CHOLECALCIFEROL (VITAMIN D3) 5,000 UNIT CAPSULE PO SCH (08:15)
--- NOTE | 2020-07-07 09:12 | PDOC2 ---
CONSULT Date of Consult Date of Consult DATE: 07/07/20 TIME: 09:12 Reason for Consult Reason for Consult: ESRD Source Source: Chart review History of Present Illness Reason for Visit: Patient is an 85-year-old female with past medical history of end-stage renal disease, who presents with worsening shortness of breath over the past 2 weeks. She has been having associated cough productive of yellow mucus. She was seen in urgent care today for her symptoms, and noted to have a temperature greater than 100 F, so she was sent to the emergency department for further evaluation. Upon arrival in the ER she was saturating at 90% on room air. She was placed on 4 L of nasal cannula which improved her O2 saturation. She does not admit to any aggravating or alleviating factors to her symptoms. She denies any vomiting or diarrhea.She has been on HD for 15 + years, Dialyses with nephrology group Past Medical History Cardiovascular: HTN Musculoskeletal: Other Renal/: Chronic renal insuff Past Surgical History Past Surgical History: Other Family History Family History: No Significant Social History No ALCOHOL: none Drugs: None Current Problem List Problem List Problems Medical Problems: (1) Acute dyspnea Status: Acute (2) ESRD (end stage renal disease) on dialysis Status: Acute (3) Suspected 2019 novel coronavirus infection Status: Acute Current Medications Current Medications Current Medications Methylprednisolone Sodium Succinate (SOLU-Medrol 40MG VIAL) 40 mg BID IV Last administered on 07/07/20at 08:15; Start 07/06/20 at 16:00; Stop 07/16/20 at 15:59 Ascorbic Acid (Vitamin C) 500 mg Q6HRS PO Last administered on 07/07/20at 06:13; Start 07/06/20 at 18:00 Zinc Sulfate (Orazinc) 220 mg DAILY PO Last administered on 07/07/20at 08:15; Start 07/06/20 at 17:00 Vitamin D (Vitamin D3) 5,000 unit DAILY PO Last administered on 07/07/20at 08:15; Start 07/06/20 at 16:00 Ondansetron HCl (Zofran) 4 mg PRN Q6HRS PRN IVP NAUSEA/VOMITING; Start 07/06/20 at 16:15 Famotidine (Pepcid Vial) 20 mg Q48H IVP Last administered on 07/06/20at 21:16; Start 07/06/20 at 21:00 Enoxaparin Sodium (Lovenox 30mg Syringe) 30 mg Q24H SQ Last administered on 07/06/20at 17:00; Start 07/06/20 at 17:00 Sodium Chloride (Normal Saline Flush) 3 ml QSHIFT PRN IV AFTER MEDS AND BLOOD DRAWS; Start 07/06/20 at 16:15 Acetaminophen (Tylenol) 650 mg PRN Q6HRS PRN PO MILD PAIN / TEMP > 100.3'F; Start 07/06/20 at 20:00 Vitamin B Complex/ Vitamin C (Citlali-Pavel) 1 tab DAILY PO Last administered on 07/07/20at 08:15; Start 07/07/20 at 09:00 Acetaminophen/ Hydrocodone Bitart (Lortab 5/325) 1 tab PRN Q4HRS PRN PO MODERATE-SEVERE PAIN; Start 07/06/20 at 20:00 Pantoprazole Sodium (Protonix) 40 mg DAILYAC PO Last administered on 07/07/20at 08:15; Start 07/07/20 at 07:30 Polyethylene Glycol (miraLAX PACKET) 17 gm DAILY PO Last administered on 07/07/20at 08:14; Start 07/07/20 at 09:00 Calcium Acetate (Phoslo) 1,334 mg TIDWMEALS PO Last administered on 07/07/20at 08:15; Start 07/07/20 at 08:00 Active Scripts Active Hydrocodone-Apap 5-325 (Hydrocodone Bit/Acetaminophen) 1 Each Tablet 1 Tab PO PRN Q4HRS PRN Children's Aspirin (Aspirin) 81 Mg Tab.chew 81 Mg PO DAILYWBKFT Reported Proair Hfa Inhaler (Albuterol Sulfate) 8.5 Gm Hfa.aer.ad 2 Puff INH PRN Q4HRS PRN Ativan (Lorazepam) 0.5 Mg Tablet 0.5 Mg PO PRN BID PRN Pantoprazole Sodium 40 Mg Tablet.dr 40 Mg PO BIDAC Estradiol 42.5 Gm Cream.appl 1 Jeyson VAG DAILY Allergies Allergies: Coded Allergies: No Known Drug Allergies (Unverified , 04/27/16) ROS Review of System As per HPI, rest of the ROS is negative Physical Exam Physical Exam General: NAD HEENT: PERRLA, om moist Neck supple Lungs: (Bilateral crackles, Non labored Heart: RRR, Cardiovascular: S1, S2 Abdomen: Normal bowel sounds, Soft, No tenderness Extremities: No clubbing, No cyanosis, No edema Skin: No rashes, No significant lesion Neuro: Normal tone, Sensation intact Psych/Mental Status: Mood NL no amaral Vital Signs Vital Signs Date Time Temp Pulse Resp B/P (MAP) Pulse Ox O2 Delivery O2 Flow Rate FiO2 07/07/20 06:00 52 21 155/67 (96) 93 Nasal Cannula 3.0 07/07/20 04:00 97.6 97.6 Assessment & Plan ESRD - On HD MWF at [facility] D[facility] Dialysis today , Discussed treatment plan with Leonard Anemia- No Indication for SYLVIE Acute hypoxic respiratory failure secondary CoVid Positive Abnormal chest x-ray with worsening interstitial infiltrates. COVID-19 + Labs Labs Laboratory Tests Test 07/06/20 13:30 07/06/20 17:00 07/07/20 05:20 White Blood Count 9.4 x10^3/uL (4.0-11.0) 6.4 x10^3/uL (4.0-11.0) Red Blood Count 3.07 x10^6/uL (3.50-5.40) 3.25 x10^6/uL (3.50-5.40) Hemoglobin 10.5 g/dL (12.0-15.5) 10.9 g/dL (12.0-15.5) Hematocrit 30.3 % (36.0-47.0) 32.3 % (36.0-47.0) Mean Corpuscular Volume 99 fL (79-100) 99 fL (79-100) Mean Corpuscular Hemoglobin 34 pg (25-35) 33 pg (25-35) Mean Corpuscular Hemoglobin Concent 35 g/dL (31-37) 34 g/dL (31-37) Red Cell Distribution Width 14.9 % (11.5-14.5) 14.9 % (11.5-14.5) Platelet Count 251 x10^3/uL (140-400) 252 x10^3/uL (140-400) Neutrophils (%) (Auto) 86 % (31-73) 89 % (31-73) Lymphocytes (%) (Auto) 6 % (24-48) 8 % (24-48) Monocytes (%) (Auto) 8 % (0-9) 4 % (0-9) Eosinophils (%) (Auto) 0 % (0-3) 0 % (0-3) Basophils (%) (Auto) 0 % (0-3) 0 % (0-3) Neutrophils # (Auto) 8.1 x10^3/uL (1.8-7.7) 5.7 x10^3/uL (1.8-7.7) Lymphocytes # (Auto) 0.6 x10^3/uL (1.0-4.8) 0.5 x10^3/uL (1.0-4.8) Monocytes # (Auto) 0.7 x10^3/uL (0.0-1.1) 0.2 x10^3/uL (0.0-1.1) Eosinophils # (Auto) 0.0 x10^3/uL (0.0-0.7) 0.0 x10^3/uL (0.0-0.7) Basophils # (Auto) 0.0 x10^3/uL (0.0-0.2) 0.0 x10^3/uL (0.0-0.2) Segmented Neutrophils % 86 % (35-66) Band Neutrophils % 2 % (0-9) Lymphocytes % 8 % (24-48) Monocytes % 4 % (0-10) Platelet Estimate Adequate (ADEQUATE) Prothrombin Time 14.2 SEC (11.7-14.0) Prothromb Time International Ratio 1.1 (0.8-1.1) Activated Partial Thromboplast Time 30 SEC (24-38) D-Dimer (Abbie) 3.89 ug/mlFEU (0.00-0.50) 3.28 ug/mlFEU (0.00-0.50) Sodium Level 139 mmol/L (136-145) 140 mmol/L (136-145) Potassium Level 3.6 mmol/L (3.5-5.1) 4.4 mmol/L (3.5-5.1) Chloride Level 98 mmol/L (98-107) 99 mmol/L (98-107) Carbon Dioxide Level 32 mmol/L (21-32) 30 mmol/L (21-32) Anion Gap 9 (6-14) 11 (6-14) Blood Urea Nitrogen 38 mg/dL (7-20) 56 mg/dL (7-20) Creatinine 5.0 mg/dL (0.6-1.0) 5.8 mg/dL (0.6-1.0) Estimated GFR (Cockcroft-Gault) 8.2 6.9 BUN/Creatinine Ratio 8 (6-20) Glucose Level 109 mg/dL (70-99) 163 mg/dL (70-99) Lactic Acid Level 2.2 mmol/L (0.4-2.0) 1.1 mmol/L (0.4-2.0) Calcium Level 8.4 mg/dL (8.5-10.1) 8.9 mg/dL (8.5-10.1) Total Bilirubin 0.5 mg/dL (0.2-1.0) Aspartate Amino Transf (AST/SGOT) 43 U/L (15-37) Alanine Aminotransferase (ALT/SGPT) 29 U/L (14-59) Alkaline Phosphatase 164 U/L (46-116) Troponin I Quantitative 0.091 ng/mL (0.000-0.055) C-Reactive Protein, Quantitative 332.0 mg/L (0-3.3) 379.0 mg/L (0-3.3) DY-Pbt-Q-Type Natriuretic Peptide 01939 pg/mL (0-449) Total Protein 7.8 g/dL (6.4-8.2) Albumin 2.4 g/dL (3.4-5.0) Albumin/Globulin Ratio 0.4 (1.0-1.7) Lipase 270 U/L (73-393) Procalcitonin 3.38 ng/mL (0.00-0.10) Ferritin 4786 ng/mL (8-252) Lactate Dehydrogenase 448 U/L (81-234) Laboratory Tests Test 07/06/20 13:30 07/06/20 17:00 07/07/20 05:20 White Blood Count 9.4 x10^3/uL (4.0-11.0) 6.4 x10^3/uL (4.0-11.0) Red Blood Count 3.07 x10^6/uL (3.50-5.40) 3.25 x10^6/uL (3.50-5.40) Hemoglobin 10.5 g/dL (12.0-15.5) 10.9 g/dL (12.0-15.5) Hematocrit 30.3 % (36.0-47.0) 32.3 % (36.0-47.0) Mean Corpuscular Volume 99 fL (79-100) 99 fL (79-100) Mean Corpuscular Hemoglobin 34 pg (25-35) 33 pg (25-35) Mean Corpuscular Hemoglobin Concent 35 g/dL (31-37) 34 g/dL (31-37) Red Cell Distribution Width 14.9 % (11.5-14.5) 14.9 % (11.5-14.5) Platelet Count 251 x10^3/uL (140-400) 252 x10^3/uL (140-400) Neutrophils (%) (Auto) 86 % (31-73) 89 % (31-73) Lymphocytes (%) (Auto) 6 % (24-48) 8 % (24-48) Monocytes (%) (Auto) 8 % (0-9) 4 % (0-9) Eosinophils (%) (Auto) 0 % (0-3) 0 % (0-3) Basophils (%) (Auto) 0 % (0-3) 0 % (0-3) Neutrophils # (Auto) 8.1 x10^3/uL (1.8-7.7) 5.7 x10^3/uL (1.8-7.7) Lymphocytes # (Auto) 0.6 x10^3/uL (1.0-4.8) 0.5 x10^3/uL (1.0-4.8) Monocytes # (Auto) 0.7 x10^3/uL (0.0-1.1) 0.2 x10^3/uL (0.0-1.1) Eosinophils # (Auto) 0.0 x10^3/uL (0.0-0.7) 0.0 x10^3/uL (0.0-0.7) Basophils # (Auto) 0.0 x10^3/uL (0.0-0.2) 0.0 x10^3/uL (0.0-0.2) Segmented Neutrophils % 86 % (35-66) Band Neutrophils % 2 % (0-9) Lymphocytes % 8 % (24-48) Monocytes % 4 % (0-10) Platelet Estimate Adequate (ADEQUATE) Prothrombin Time 14.2 SEC (11.7-14.0) Prothromb Time International Ratio 1.1 (0.8-1.1) Activated Partial Thromboplast Time 30 SEC (24-38) D-Dimer (Abbie) 3.89 ug/mlFEU (0.00-0.50) 3.28 ug/mlFEU (0.00-0.50) Sodium Level 139 mmol/L (136-145) 140 mmol/L (136-145) Potassium Level 3.6 mmol/L (3.5-5.1) 4.4 mmol/L (3.5-5.1) Chloride Level 98 mmol/L (98-107) 99 mmol/L (98-107) Carbon Dioxide Level 32 mmol/L (21-32) 30 mmol/L (21-32) Anion Gap 9 (6-14) 11 (6-14) Blood Urea Nitrogen 38 mg/dL (7-20) 56 mg/dL (7-20) Creatinine 5.0 mg/dL (0.6-1.0) 5.8 mg/dL (0.6-1.0) Estimated GFR (Cockcroft-Gault) 8.2 6.9 BUN/Creatinine Ratio 8 (6-20) Glucose Level 109 mg/dL (70-99) 163 mg/dL (70-99) Lactic Acid Level 2.2 mmol/L (0.4-2.0) 1.1 mmol/L (0.4-2.0) Calcium Level 8.4 mg/dL (8.5-10.1) 8.9 mg/dL (8.5-10.1) Total Bilirubin 0.5 mg/dL (0.2-1.0) Aspartate Amino Transf (AST/SGOT) 43 U/L (15-37) Alanine Aminotransferase (ALT/SGPT) 29 U/L (14-59) Alkaline Phosphatase 164 U/L (46-116) Troponin I Quantitative 0.091 ng/mL (0.000-0.055) C-Reactive Protein, Quantitative 332.0 mg/L (0-3.3) 379.0 mg/L (0-3.3) CQ-Wvj-Q-Type Natriuretic Peptide 85262 pg/mL (0-449) Total Protein 7.8 g/dL (6.4-8.2) Albumin 2.4 g/dL (3.4-5.0) Albumin/Globulin Ratio 0.4 (1.0-1.7) Lipase 270 U/L (73-393) Procalcitonin 3.38 ng/mL (0.00-0.10) Ferritin 4786 ng/mL (8-252) Lactate Dehydrogenase 448 U/L (81-234) Review All relevant outside records, renal labs, imaging studies, telemetry/EKG's were reviewed. Images Images CxR-- The cardiomediastinal silhouette is within normal limits. Right chest wall double-lumen dialysis catheter is identified in similar position. There is increased interstitial thickening in the right upper lobe and to a lesser extent left upper lobe suspicious for multifocal pulmonary infiltrates. Chronic interstitial changes are present. No significant pleural effusions or pneumothorax. 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 IMPRESSION: Chronic interstitial changes are identified with superimposed increased interstitial airspace disease in the upper lobes suggestive of multifocal pulmonary infiltrates. Recommend short-term follow-up two-view chest radiograph. Interstitial edema may have similar appearance. SUSAN BALDERRAMA MD Jul 07, 2020 09:12
[2020-07-07] MEDS ORDERED: PIP/TAZO PER PHARMACY MC PRN (10:45)
--- NOTE | 2020-07-07 10:54 | PDOC ---
[employer] PROGRESS NOTE Date of Service DOS: DATE: 07/07/20 TIME: 10:53 Chief Complaint Chief Complaint Suspected COVID-19, hypoxia, end-stage renal disease on hemodialysis History of Present Illness History of Present Illness 07/07/2020 Patient seen and examined in the COVID-19 ICU Discussed with hospice case manager Discussed with RN Chart reviewed Vitals/I&O Vitals/I&O: Vital Signs Date Time Temp Pulse Resp B/P (MAP) Pulse Ox O2 Delivery O2 Flow Rate FiO2 07/07/20 06:00 52 21 155/67 (96) 93 Nasal Cannula 3.0 07/07/20 04:00 97.6 97.6 I & O 07/06/20 07/06/20 07/07/20 15:00 23:00 07:00 Intake Total 120 ml 0 ml Output Total 0 ml Balance 120 ml 0 ml Physical Exam General: Alert, Cooperative, mild distress Heart: Regular rate Lungs: Crackles Abdomen: Normal bowel sounds, Soft, No tenderness Extremities: No clubbing, No cyanosis, No edema Skin: No rashes, No significant lesion Labs Labs: Laboratory Tests Test 07/06/20 13:30 07/06/20 17:00 07/07/20 05:20 White Blood Count 9.4 x10^3/uL (4.0-11.0) 6.4 x10^3/uL (4.0-11.0) Red Blood Count 3.07 x10^6/uL (3.50-5.40) 3.25 x10^6/uL (3.50-5.40) Hemoglobin 10.5 g/dL (12.0-15.5) 10.9 g/dL (12.0-15.5) Hematocrit 30.3 % (36.0-47.0) 32.3 % (36.0-47.0) Mean Corpuscular Volume 99 fL (79-100) 99 fL (79-100) Mean Corpuscular Hemoglobin 34 pg (25-35) 33 pg (25-35) Mean Corpuscular Hemoglobin Concent 35 g/dL (31-37) 34 g/dL (31-37) Red Cell Distribution Width 14.9 % (11.5-14.5) 14.9 % (11.5-14.5) Platelet Count 251 x10^3/uL (140-400) 252 x10^3/uL (140-400) Neutrophils (%) (Auto) 86 % (31-73) 89 % (31-73) Lymphocytes (%) (Auto) 6 % (24-48) 8 % (24-48) Monocytes (%) (Auto) 8 % (0-9) 4 % (0-9) Eosinophils (%) (Auto) 0 % (0-3) 0 % (0-3) Basophils (%) (Auto) 0 % (0-3) 0 % (0-3) Neutrophils # (Auto) 8.1 x10^3/uL (1.8-7.7) 5.7 x10^3/uL (1.8-7.7) Lymphocytes # (Auto) 0.6 x10^3/uL (1.0-4.8) 0.5 x10^3/uL (1.0-4.8) Monocytes # (Auto) 0.7 x10^3/uL (0.0-1.1) 0.2 x10^3/uL (0.0-1.1) Eosinophils # (Auto) 0.0 x10^3/uL (0.0-0.7) 0.0 x10^3/uL (0.0-0.7) Basophils # (Auto) 0.0 x10^3/uL (0.0-0.2) 0.0 x10^3/uL (0.0-0.2) Segmented Neutrophils % 86 % (35-66) Band Neutrophils % 2 % (0-9) Lymphocytes % 8 % (24-48) Monocytes % 4 % (0-10) Platelet Estimate Adequate (ADEQUATE) Prothrombin Time 14.2 SEC (11.7-14.0) Prothromb Time International Ratio 1.1 (0.8-1.1) Activated Partial Thromboplast Time 30 SEC (24-38) D-Dimer (Abbie) 3.89 ug/mlFEU (0.00-0.50) 3.28 ug/mlFEU (0.00-0.50) Sodium Level 139 mmol/L (136-145) 140 mmol/L (136-145) Potassium Level 3.6 mmol/L (3.5-5.1) 4.4 mmol/L (3.5-5.1) Chloride Level 98 mmol/L (98-107) 99 mmol/L (98-107) Carbon Dioxide Level 32 mmol/L (21-32) 30 mmol/L (21-32) Anion Gap 9 (6-14) 11 (6-14) Blood Urea Nitrogen 38 mg/dL (7-20) 56 mg/dL (7-20) Creatinine 5.0 mg/dL (0.6-1.0) 5.8 mg/dL (0.6-1.0) Estimated GFR (Cockcroft-Gault) 8.2 6.9 BUN/Creatinine Ratio 8 (6-20) Glucose Level 109 mg/dL (70-99) 163 mg/dL (70-99) Lactic Acid Level 2.2 mmol/L (0.4-2.0) 1.1 mmol/L (0.4-2.0) Calcium Level 8.4 mg/dL (8.5-10.1) 8.9 mg/dL (8.5-10.1) Total Bilirubin 0.5 mg/dL (0.2-1.0) Aspartate Amino Transf (AST/SGOT) 43 U/L (15-37) Alanine Aminotransferase (ALT/SGPT) 29 U/L (14-59) Alkaline Phosphatase 164 U/L (46-116) Troponin I Quantitative 0.091 ng/mL (0.000-0.055) C-Reactive Protein, Quantitative 332.0 mg/L (0-3.3) 379.0 mg/L (0-3.3) QD-Vlr-S-Type Natriuretic Peptide 45797 pg/mL (0-449) Total Protein 7.8 g/dL (6.4-8.2) Albumin 2.4 g/dL (3.4-5.0) Albumin/Globulin Ratio 0.4 (1.0-1.7) Lipase 270 U/L (73-393) Procalcitonin 3.38 ng/mL (0.00-0.10) Ferritin 4786 ng/mL (8-252) Lactate Dehydrogenase 448 U/L (81-234) Assessment and Plan Assessmemt and Plan Problems Medical Problems: (1) Acute dyspnea Status: Acute (2) ESRD (end stage renal disease) on dialysis Status: Acute (3) Suspected 2019 novel coronavirus infection Status: Acute Suspected COVID-19, hypoxia, end-stage renal disease on hemodialysis Plan ICU monitoring Covid-19 protocol including antibiotics, O2, beta agonist, vitamins Awaiting COVID test official results Home meds DVT prophylaxis Full code Appreciate subspecialist input Comment Review of Relevant I have reviewed the following items thong (where applicable) has been applied. Medications: Current Medications Medications (Trade) Dose Ordered Sig/Emmy Route PRN Reason Start Time Stop Time Status Last Admin Dose Admin Methylprednisolone Sodium Succinate (SOLU-Medrol 40MG VIAL) 40 mg BID IV 07/06/20 16:00 07/16/20 15:59 07/07/20 08:15 Ascorbic Acid (Vitamin C) 500 mg Q6HRS PO 07/06/20 18:00 07/07/20 06:13 Zinc Sulfate (Orazinc) 220 mg DAILY PO 07/06/20 17:00 07/07/20 08:15 Vitamin D (Vitamin D3) 5,000 unit DAILY PO 07/06/20 16:00 07/07/20 08:15 Famotidine (Pepcid Vial) 20 mg Q48H IVP 07/06/20 21:00 07/06/20 21:16 Enoxaparin Sodium (Lovenox 30mg Syringe) 30 mg Q24H SQ 07/06/20 17:00 07/06/20 17:00 Vitamin B Complex/ Vitamin C (Citlali-Pavel) 1 tab DAILY PO 07/07/20 09:00 07/07/20 08:15 Pantoprazole Sodium (Protonix) 40 mg DAILYAC PO 07/07/20 07:30 07/07/20 08:15 Polyethylene Glycol (miraLAX PACKET) 17 gm DAILY PO 07/07/20 09:00 07/07/20 08:14 Calcium Acetate (Phoslo) 1,334 mg TIDWMEALS PO 07/07/20 08:00 07/07/20 08:15 Justifications for Admission Other Justification HERMAN WHEELER III DO Jul 07, 2020 10:54
--- NOTE | 2020-07-07 10:54 | CONS ---
DATE OF CONSULTATION: 07/07/2020 PULMONARY CONSULTATION ATTENDING PHYSICIAN: Danial March MD REASON FOR CONSULTATION: Hypoxia, COVID suspected pneumonia. HISTORY OF PRESENT ILLNESS: The patient is an 85-year-old female who has history of end-stage renal disease, on hemodialysis. She was brought into the hospital with worsening shortness of breath for the last 2 weeks. She has a cough with some productive sputum. She was seen in the urgent care and was noted to have a temperature of 100 degrees Fahrenheit. Her saturations were 90% on room air. She is currently on 4 liters nasal cannula. I have reviewed the patient's chest x-ray and there are worsening interstitial infiltrates, especially in the upper lobes. Last x-ray was from 2018 and it appeared relatively clear at that time. I am unable to obtain much history from the patient. No obvious nausea, vomiting or diarrhea. She is currently on nasal cannula. PAST MEDICAL HISTORY: History of hypertension and chronic renal insufficiency, on hemodialysis. PAST SURGICAL HISTORY: Left arm AV fistula. Dialysis catheter placement. FAMILY HISTORY: Noncontributory to lungs. SOCIAL HISTORY: Nonsmoker. ALLERGIES: None. MEDICATIONS: Reviewed as listed in the [facility] including IV Solu-Medrol, Lovenox for DVT prophylaxis. REVIEW OF SYSTEMS: Unable to obtain from the patient. PHYSICAL EXAMINATION: Which was done visually due to COVID-19 pandemia. GENERAL: She is in no obvious respiratory distress. VITAL SIGNS: Pulse ox 96% on 4 liters. LUNGS: No paradoxical breathing. SKIN: No skin rash. EXTREMITIES: No leg edema. LABORATORY DATA: Reviewed. White cell count 6.4, hemoglobin 10.9, platelets are 252. BUN 56, creatinine 5.8. Procalcitonin 3.38. D-dimer is 3.89. IMPRESSION: 1. Acute hypoxic respiratory failure secondary to clinically suspected COVID-19 pneumonia. Other possible differential diagnosis would be acute congestive heart failure. 2. Abnormal chest x-ray with worsening interstitial infiltrates. COVID-19 pneumonia versus congestive heart failure. 3. End-stage renal disease, on hemodialysis. 4. Increased procalcitonin level. 5. Abnormal D-dimer, which can be nonspecific. Once COVID ruled out, we will obtain the lower extremity venous Dopplers. Clinically, low suspicion for thromboembolic disease. RECOMMENDATIONS: 1. Continue present nasal cannula. 2. Add empiric antibiotic. 3. Continue IV steroids. 4. Rule out COVID. 5. If COVID is negative, then do venous Dopplers of lower extremities. 6. She would need increase ultrafiltration with hemodialysis. 7. The patient can be transferred to [facility] floor upstairs. Discussed with RN and RT. Critical care time 33 minutes. ROCKY LYMAN MD DR: GRACE/karishma JOB#: [id number] / [id number]
[2020-07-07] MEDS ORDERED: PIPERACILLIN/TAZOBACTAM 2.25 GM in IV NORMAL SALINE 50ML 50 ML IV SCH (11:00)
--- NOTE | 2020-07-07 11:07 | NUR ---
SS following up with discharge planning. SS reviewed pt chart and discussed with pt RN. Pt is from home and is currently requiring oxygen. Pt on IV Zosyn. Pt has outpatient dialysis at [facility], ; fax [phone]. COVID19 pending. Pt Albanian speaking. SS will continue to follow for discharge planning.
[2020-07-07] MEDS: PIPERACILLIN/TAZOBACTAM 2.25 GM in IV NORMAL SALINE 50ML 50 ML IV SCH ×2 (12:29→21:52)
[2020-07-07] MEDS: LACTOBACILLUS RHAMNOSUS GG 1 CAPSULE. PO SCH ×2 (12:30→21:50)
[2020-07-07] MEDS ORDERED: ALBUMIN HUMAN 25% 200 ML IV PRN (17:00)
[2020-07-07] MEDS ORDERED: IV NORMAL SALINE 1000ML BAG 1,000 ML IV PRN ×2 (17:00)
[2020-07-07] MEDS ORDERED: DIALYSIS PATIENT. MC PRN ×2 (18:15)
[2020-07-07] MEDS: ENOXAPARIN 30 MG/0.3 ML SYRINGE. SQ SCH (21:51)
[2020-07-08 03:00] VITALS: BP 130/63
[2020-07-08 03:46] LABS: BASO # 0.1 x10^3/uL (0.0-0.2); BASO % 1 % (0-3); EOS % 0 % (0-3); HEMATOCRIT 33.1 % (36.0-47.0); HEMOGLOBIN 11.2 g/dL (12.0-15.5); LYMPH # 0.5 x10^3/uL (1.0-4.8); LYMPH % 4 % (24-48); MEAN CORPUSCULAR HEMOGLOBIN 33 pg (25-35); MEAN CORPUSCULAR HGB CONC 34 g/dL (31-37); MEAN CORPUSCULAR VOLUME 98 fL (79-100); MONO # 0.5 x10^3/uL (0.0-1.1); MONO % 4 % (0-9); NEUT # 11.7 x10^3/uL (1.8-7.7); NEUT % 91 % (31-73); PLATELET COUNT 250 x10^3/uL (140-400); RED BLOOD COUNT 3.37 x10^6/uL (3.50-5.40); RED CELL DISTRIBUTION WIDTH 14.7 % (11.5-14.5); WHITE BLOOD COUNT 12.8 x10^3/uL (4.0-11.0)
[2020-07-08 04:45] LABS: CALCIUM 8.6 mg/dL (8.5-10.1); CREATININE 3.7 mg/dL (0.6-1.0); GFR 11.6; POTASSIUM 4.5 mmol/L (3.5-5.1)
[2020-07-08] MEDS: ASCORBIC ACID 500 MG TABLET PO SCH ×3 (06:14→18:46)
[2020-07-08] MEDS: PIPERACILLIN/TAZOBACTAM 2.25 GM in IV NORMAL SALINE 50ML 50 ML IV SCH ×2 (06:15→12:54)
[2020-07-08 07:20] VITALS: BP 132/69
--- NOTE | 2020-07-08 08:51 | PDOC ---
[employer] PROGRESS NOTE Date of Service DOS: DATE: 07/08/20 TIME: 08:37 Chief Complaint Chief Complaint A/P: COVID-19 Acute hypoxic respiratory failure End-stage renal disease on hemodialysis Osteoarthritis GERD Hypertension Anemia of chronic renal insufficiency Severe protein calorie malnutrition anxiety Confusion - likely some ICU delerium. Patient family note that she jokes frequently. I am concerned there may be some underlying cognitive impairment as well though, and have shared this with her family History of Present Illness History of Present Illness Ms Shelton is an 85 yo F w/PMHx HTN, CKD on hemodialysis brought into the hospital with worsening shortness of breath for the last 2 weeks. She has a cough with some productive sputum. She was seen in the urgent care and was noted to have a temperature of 100 degrees Fahrenheit. Her saturations were 90% on 4 liters nasal cannula. CXR with worsening interstitial infiltrates, COVID 19 test returned positive. 07/07: Patient seen and examined in the [place] [id number] ICU Patient seen and [place] [id number] isolation unit. Afebrile on 4 L nasal cannulated oxygen. Plan to utilize CR, assistant to the president services to communicate with her. I informed her on 3 separate times during our conversation that she is positive for the coronavirus and within 2 to 3 minutes she asked me again when her test is going to come back. The assistant to the president was frustrated.WBC slightly up today. Vitals/I&O Vitals/I&O: Vital Signs Date Time Temp Pulse Resp B/P (MAP) Pulse Ox O2 Delivery O2 Flow Rate FiO2 07/08/20 03:00 97.9 59 24 130/63 (85) 95 Nasal Cannula 3.0 97.9 I & O 0 07/07/20 07/07/20 07/08/20 15:00 23:00 07:00 Intake Total 325 ml 0 ml 370 ml Balance 325 ml 0 ml 370 ml Physical Exam General: Alert, Cooperative, mild distress Heart: Regular rate Lungs: Crackles Abdomen: Normal bowel sounds, Soft, No tenderness Extremities: No clubbing, No cyanosis, No edema Skin: No rashes, No significant lesion Labs Labs: Laboratory Tests Test 07/08/20 03:30 White Blood Count 12.8 x10^3/uL (4.0-11.0) Red Blood Count 3.37 x10^6/uL (3.50-5.40) Hemoglobin 11.2 g/dL (12.0-15.5) Hematocrit 33.1 % (36.0-47.0) Mean Corpuscular Volume 98 fL (79-100) Mean Corpuscular Hemoglobin 33 pg (25-35) Mean Corpuscular Hemoglobin Concent 34 g/dL (31-37) Red Cell Distribution Width 14.7 % (11.5-14.5) Platelet Count 250 x10^3/uL (140-400) Neutrophils (%) (Auto) 91 % (31-73) Lymphocytes (%) (Auto) 4 % (24-48) Monocytes (%) (Auto) 4 % (0-9) Eosinophils (%) (Auto) 0 % (0-3) Basophils (%) (Auto) 1 % (0-3) Neutrophils # (Auto) 11.7 x10^3/uL (1.8-7.7) Lymphocytes # (Auto) 0.5 x10^3/uL (1.0-4.8) Monocytes # (Auto) 0.5 x10^3/uL (0.0-1.1) Eosinophils # (Auto) 0.0 x10^3/uL (0.0-0.7) Basophils # (Auto) 0.1 x10^3/uL (0.0-0.2) Sodium Level 136 mmol/L (136-145) Potassium Level 4.5 mmol/L (3.5-5.1) Chloride Level 98 mmol/L (98-107) Carbon Dioxide Level 29 mmol/L (21-32) Anion Gap 9 (6-14) Blood Urea Nitrogen 36 mg/dL (7-20) Creatinine 3.7 mg/dL (0.6-1.0) Estimated GFR (Cockcroft-Gault) 11.6 Glucose Level 153 mg/dL (70-99) Calcium Level 8.6 mg/dL (8.5-10.1) Assessment and Plan Assessmemt and Plan Problems Medical Problems: (1) Acute dyspnea Status: Acute (2) ESRD (end stage renal disease) on dialysis Status: Acute (3) Suspected 2019 novel coronavirus infection Status: Acute Comment Review of Relevant I have reviewed the following items thong (where applicable) has been applied. Medications: Current Medications Medications (Trade) Dose Ordered Sig/Emmy Route PRN Reason Start Time Stop Time Status Last Admin Dose Admin Vitamin B Complex/ Vitamin C (Citlali-Pavel) 1 tab DAILY PO 07/07/20 09:00 07/07/20 08:15 Polyethylene Glycol (miraLAX PACKET) 17 gm DAILY PO 07/07/20 09:00 07/07/20 08:14 Piperacillin Sod/ Tazobactam Sod 2.25 gm/Sodium Chloride 50 ml @ 100 mls/hr Q8HRS IV 07/07/20 11:30 07/08/20 06:15 Lactobacillus Rhamnosus (Culturelle) 1 cap BID PO 07/07/20 12:00 07/07/20 21:50 Justifications for Admission Other Justification NELLY CARPIO MD Jul 08, 2020 08:50
[2020-07-08] MEDS: CALCIUM ACETATE 667 MG CAPSULE PO SCH ×3 (09:18→18:46)
[2020-07-08] MEDS: CHOLECALCIFEROL (VITAMIN D3) 5,000 UNIT CAPSULE PO SCH (09:18)
[2020-07-08] MEDS: LACTOBACILLUS RHAMNOSUS GG 1 CAPSULE. PO SCH (09:19)
[2020-07-08] MEDS: ZINC SULFATE 220 MG CAPSULE. PO SCH (09:19)
[2020-07-08] MEDS: methylPREDNISolone SOD SUCC PF 40 MG/ML VIAL. IV SCH (09:19)
[2020-07-08] MEDS: POLYETHYLENE GLYCOL 3350 17 GM PACKET. PO SCH (09:19)
[2020-07-08] MEDS: FOLIC/VIT B COMP W-C (RENAL) TABLET. PO SCH (09:19)
[2020-07-08] MEDS: PANTOPRAZOLE 40 MG TABLET.DR. PO SCH (09:19)
--- NOTE | 2020-07-08 11:01 | PDOC ---
PULMONARY PROGRESS NOTES DATE: 07/08/20 TIME: 10:58 Subjective on 02, appears comfortable says she is 0k Vitals Vital Signs Date Time Temp Pulse Resp B/P (MAP) Pulse Ox O2 Delivery O2 Flow Rate FiO2 07/08/20 07:20 97.9 63 18 132/69 (90) 92 Nasal Cannula 3.0 97.9 Comments alert appears comfortable nc at rrr no paradoxical abd motion no accessory muscle use no rash Lungs: Crackles Cardiovascular: S1, S2 Labs Laboratory Tests Test 07/06/20 13:30 07/06/20 17:00 07/07/20 05:20 07/08/20 03:30 White Blood Count 9.4 x10^3/uL (4.0-11.0) 6.4 x10^3/uL (4.0-11.0) 12.8 x10^3/uL (4.0-11.0) Red Blood Count 3.07 x10^6/uL (3.50-5.40) 3.25 x10^6/uL (3.50-5.40) 3.37 x10^6/uL (3.50-5.40) Hemoglobin 10.5 g/dL (12.0-15.5) 10.9 g/dL (12.0-15.5) 11.2 g/dL (12.0-15.5) Hematocrit 30.3 % (36.0-47.0) 32.3 % (36.0-47.0) 33.1 % (36.0-47.0) Mean Corpuscular Volume 99 fL (79-100) 99 fL (79-100) 98 fL (79-100) Mean Corpuscular Hemoglobin 34 pg (25-35) 33 pg (25-35) 33 pg (25-35) Mean Corpuscular Hemoglobin Concent 35 g/dL (31-37) 34 g/dL (31-37) 34 g/dL (31-37) Red Cell Distribution Width 14.9 % (11.5-14.5) 14.9 % (11.5-14.5) 14.7 % (11.5-14.5) Platelet Count 251 x10^3/uL (140-400) 252 x10^3/uL (140-400) 250 x10^3/uL (140-400) Neutrophils (%) (Auto) 86 % (31-73) 89 % (31-73) 91 % (31-73) Lymphocytes (%) (Auto) 6 % (24-48) 8 % (24-48) 4 % (24-48) Monocytes (%) (Auto) 8 % (0-9) 4 % (0-9) 4 % (0-9) Eosinophils (%) (Auto) 0 % (0-3) 0 % (0-3) 0 % (0-3) Basophils (%) (Auto) 0 % (0-3) 0 % (0-3) 1 % (0-3) Neutrophils # (Auto) 8.1 x10^3/uL (1.8-7.7) 5.7 x10^3/uL (1.8-7.7) 11.7 x10^3/uL (1.8-7.7) Lymphocytes # (Auto) 0.6 x10^3/uL (1.0-4.8) 0.5 x10^3/uL (1.0-4.8) 0.5 x10^3/uL (1.0-4.8) Monocytes # (Auto) 0.7 x10^3/uL (0.0-1.1) 0.2 x10^3/uL (0.0-1.1) 0.5 x10^3/uL (0.0-1.1) Eosinophils # (Auto) 0.0 x10^3/uL (0.0-0.7) 0.0 x10^3/uL (0.0-0.7) 0.0 x10^3/uL (0.0-0.7) Basophils # (Auto) 0.0 x10^3/uL (0.0-0.2) 0.0 x10^3/uL (0.0-0.2) 0.1 x10^3/uL (0.0-0.2) Segmented Neutrophils % 86 % (35-66) Band Neutrophils % 2 % (0-9) Lymphocytes % 8 % (24-48) Monocytes % 4 % (0-10) Platelet Estimate Adequate (ADEQUATE) Prothrombin Time 14.2 SEC (11.7-14.0) Prothromb Time International Ratio 1.1 (0.8-1.1) Activated Partial Thromboplast Time 30 SEC (24-38) D-Dimer (Abbie) 3.89 ug/mlFEU (0.00-0.50) 3.28 ug/mlFEU (0.00-0.50) Sodium Level 139 mmol/L (136-145) 140 mmol/L (136-145) 136 mmol/L (136-145) Potassium Level 3.6 mmol/L (3.5-5.1) 4.4 mmol/L (3.5-5.1) 4.5 mmol/L (3.5-5.1) Chloride Level 98 mmol/L (98-107) 99 mmol/L (98-107) 98 mmol/L (98-107) Carbon Dioxide Level 32 mmol/L (21-32) 30 mmol/L (21-32) 29 mmol/L (21-32) Anion Gap 9 (6-14) 11 (6-14) 9 (6-14) Blood Urea Nitrogen 38 mg/dL (7-20) 56 mg/dL (7-20) 36 mg/dL (7-20) Creatinine 5.0 mg/dL (0.6-1.0) 5.8 mg/dL (0.6-1.0) 3.7 mg/dL (0.6-1.0) Estimated GFR (Cockcroft-Gault) 8.2 6.9 11.6 BUN/Creatinine Ratio 8 (6-20) Glucose Level 109 mg/dL (70-99) 163 mg/dL (70-99) 153 mg/dL (70-99) Lactic Acid Level 2.2 mmol/L (0.4-2.0) 1.1 mmol/L (0.4-2.0) Calcium Level 8.4 mg/dL (8.5-10.1) 8.9 mg/dL (8.5-10.1) 8.6 mg/dL (8.5-10.1) Total Bilirubin 0.5 mg/dL (0.2-1.0) Aspartate Amino Transf (AST/SGOT) 43 U/L (15-37) Alanine Aminotransferase (ALT/SGPT) 29 U/L (14-59) Alkaline Phosphatase 164 U/L (46-116) Troponin I Quantitative 0.091 ng/mL (0.000-0.055) C-Reactive Protein, Quantitative 332.0 mg/L (0-3.3) 379.0 mg/L (0-3.3) YS-Tap-I-Type Natriuretic Peptide 63961 pg/mL (0-449) Total Protein 7.8 g/dL (6.4-8.2) Albumin 2.4 g/dL (3.4-5.0) Albumin/Globulin Ratio 0.4 (1.0-1.7) Lipase 270 U/L (73-393) Procalcitonin 3.38 ng/mL (0.00-0.10) Coronavirus (PCR) Detected (Not Detected) Ferritin 4786 ng/mL (8-252) Lactate Dehydrogenase 448 U/L (81-234) Laboratory Tests Test 07/08/20 03:30 White Blood Count 12.8 x10^3/uL (4.0-11.0) Red Blood Count 3.37 x10^6/uL (3.50-5.40) Hemoglobin 11.2 g/dL (12.0-15.5) Hematocrit 33.1 % (36.0-47.0) Mean Corpuscular Volume 98 fL (79-100) Mean Corpuscular Hemoglobin 33 pg (25-35) Mean Corpuscular Hemoglobin Concent 34 g/dL (31-37) Red Cell Distribution Width 14.7 % (11.5-14.5) Platelet Count 250 x10^3/uL (140-400) Neutrophils (%) (Auto) 91 % (31-73) Lymphocytes (%) (Auto) 4 % (24-48) Monocytes (%) (Auto) 4 % (0-9) Eosinophils (%) (Auto) 0 % (0-3) Basophils (%) (Auto) 1 % (0-3) Neutrophils # (Auto) 11.7 x10^3/uL (1.8-7.7) Lymphocytes # (Auto) 0.5 x10^3/uL (1.0-4.8) Monocytes # (Auto) 0.5 x10^3/uL (0.0-1.1) Eosinophils # (Auto) 0.0 x10^3/uL (0.0-0.7) Basophils # (Auto) 0.1 x10^3/uL (0.0-0.2) Sodium Level 136 mmol/L (136-145) Potassium Level 4.5 mmol/L (3.5-5.1) Chloride Level 98 mmol/L (98-107) Carbon Dioxide Level 29 mmol/L (21-32) Anion Gap 9 (6-14) Blood Urea Nitrogen 36 mg/dL (7-20) Creatinine 3.7 mg/dL (0.6-1.0) Estimated GFR (Cockcroft-Gault) 11.6 Glucose Level 153 mg/dL (70-99) Calcium Level 8.6 mg/dL (8.5-10.1) Medications Active Scripts Medications Dose Route/Sig Max Daily Dose Days Date Category Proair Hfa Inhaler (Albuterol Sulfate) 8.5 Gm Hfa.aer.ad 2 Puff INH PRN Q4HRS PRN 07/06/20 Reported Ativan (Lorazepam) 0.5 Mg Tablet 0.5 Mg PO PRN BID PRN 07/06/20 Reported Pantoprazole Sodium 40 Mg Tablet.dr 40 Mg PO BIDAC 07/06/20 Reported Estradiol 42.5 Gm Cream.appl 1 Jeyson VAG DAILY 07/06/20 Reported Hydrocodone-Apap 5-325 (Hydrocodone Bit/Acetaminophen) 1 Each Tablet 1 Tab PO PRN Q4HRS PRN 12/09/16 Rx Children's Aspirin (Aspirin) 81 Mg Tab.chew 81 Mg PO DAILYWBKFT 12/09/16 Rx Impression . IMPRESSION: 1. Acute hypoxic respiratory failure secondary to COVID-19 pneumonia. Other possible differential diagnosis would be acute congestive heart failure. 2. Abnormal chest x-ray with worsening interstitial infiltrates. COVID-19 pneumonia versus congestive heart failure. 3. End-stage renal disease, on hemodialysis. 4. Increased procalcitonin level. 5. Abnormal D-dimer, which can be nonspecific. covid + , Clinically, low suspicion for thromboembolic disease. Plan . RECOMMENDATIONS: 1. Continue present nasal cannula. 2. empiric antibiotic. 3. Continue IV steroids. 4. COVID 19 pos 5. She would need increase ultrafiltration with hemodialysis. per nephro 6. lovenox for dvt prophylaxis Discussed with RHONA SERRA MD Jul 08, 2020 11:01
[2020-07-08 11:38] VITALS: BP 120/62
[2020-07-08 15:11] VITALS: BP 127/60
[2020-07-08] MEDS: ENOXAPARIN 30 MG/0.3 ML SYRINGE. SQ SCH (18:46)
[2020-07-08 19:00] VITALS: BP 106/59
[2020-07-08 23:00] VITALS: BP 131/59
[2020-07-09] MEDS: methylPREDNISolone SOD SUCC PF 40 MG/ML VIAL. IV SCH ×2 (00:36→08:38)
[2020-07-09] MEDS: ASCORBIC ACID 500 MG TABLET PO SCH ×4 (00:36→17:34)
[2020-07-09] MEDS: LACTOBACILLUS RHAMNOSUS GG 1 CAPSULE. PO SCH ×2 (00:36→08:38)
[2020-07-09] MEDS: FAMOTIDINE 20 MG/2 ML VIAL IVP SCH (00:36)
[2020-07-09] MEDS: PIPERACILLIN/TAZOBACTAM 2.25 GM in IV NORMAL SALINE 50ML 50 ML IV SCH ×3 (00:37→12:58)
[2020-07-09 03:00] VITALS: BP 151/72
[2020-07-09 04:58] LABS: BASO % 0 % (0-3); EOS % 0 % (0-3); HEMATOCRIT 32.6 % (36.0-47.0); HEMOGLOBIN 10.9 g/dL (12.0-15.5); LYMPH # 0.6 x10^3/uL (1.0-4.8); LYMPH % 4 % (24-48); MEAN CORPUSCULAR HEMOGLOBIN 33 pg (25-35); MEAN CORPUSCULAR HGB CONC 33 g/dL (31-37); MEAN CORPUSCULAR VOLUME 99 fL (79-100); MONO # 0.6 x10^3/uL (0.0-1.1); MONO % 4 % (0-9); NEUT # 12.8 x10^3/uL (1.8-7.7); NEUT % 92 % (31-73); PLATELET COUNT 287 x10^3/uL (140-400); RED BLOOD COUNT 3.29 x10^6/uL (3.50-5.40); RED CELL DISTRIBUTION WIDTH 14.9 % (11.5-14.5); WHITE BLOOD COUNT 13.9 x10^3/uL (4.0-11.0)
[2020-07-09 05:09] LABS: CALCIUM 8.6 mg/dL (8.5-10.1); GFR 6.7
[2020-07-09 05:20] LABS: POTASSIUM 5.3 mmol/L (3.5-5.1)
[2020-07-09 07:00] VITALS: BP 184/79
[2020-07-09] MEDS ORDERED: hydrALAZINE 20 MG/ML VIAL. IVP PRN (08:15)
[2020-07-09] MEDS: FOLIC/VIT B COMP W-C (RENAL) TABLET. PO SCH (08:38)
[2020-07-09] MEDS: POLYETHYLENE GLYCOL 3350 17 GM PACKET. PO SCH (08:38)
[2020-07-09] MEDS: ZINC SULFATE 220 MG CAPSULE. PO SCH (08:38)
[2020-07-09] MEDS: CALCIUM ACETATE 667 MG CAPSULE PO SCH ×3 (08:38→17:34)
[2020-07-09] MEDS: PANTOPRAZOLE 40 MG TABLET.DR. PO SCH (08:38)
[2020-07-09] MEDS: CHOLECALCIFEROL (VITAMIN D3) 5,000 UNIT CAPSULE PO SCH (08:38)
--- NOTE | 2020-07-09 09:46 | PDOC ---
[facility] PROGRESS NOTE Date of Service DOS: DATE: 07/09/20 TIME: 09:45 Chief Complaint Chief Complaint A/P: COVID-19 Acute hypoxic respiratory failure End-stage renal disease on hemodialysis Osteoarthritis GERD Hypertension Anemia of chronic renal insufficiency Severe protein calorie malnutrition anxiety Confusion - likely some ICU delerium. Patient family note that she jokes frequently. I am concerned there may be some underlying cognitive impairment as well though, and have shared this with her family History of Present Illness History of Present Illness Ms Shelton is an 85 yo F w/PMHx HTN, CKD on hemodialysis brought into the hospital with worsening shortness of breath for the last 2 weeks. She has a cough with some productive sputum. She was seen in the urgent care and was noted to have a temperature of 100 degrees Fahrenheit. Her saturations were 90% on 4 liters nasal cannula. CXR with worsening interstitial infiltrates, COVID 19 test returned positive. 07/07: Patient seen and examined in the [facility] [address] ICU 07/08: Patient seen and [facility] [address] isolation unit. Afebrile on 4 L nasal cannulated oxygen. Plan to utilize [facility], hot top liner services to communicate with her. I informed her on 3 separate times during our conversation that she is positive for the coronavirus and within 2 to 3 minutes she asked me again when her test is going to come back. The hot top liner was frustrated.WBC slightly up today. Afebrile. WBC 13.9 increased again. K5.3. She feels improved, no complaints still on 4 L nasal cannula oxygen.. Vitals/I&O Vitals/I&O: Vital Signs Date Time Temp Pulse Resp B/P (MAP) Pulse Ox O2 Delivery O2 Flow Rate FiO2 07/09/20 08:39 59 184/79 07/09/20 07:00 98.6 17 97 Nasal Cannula 3.0 98.6 I & O 07/08/20 07/08/20 07/09/20 14:59 22:59 06:59 Intake Total 580 ml 300 ml 100 ml Balance 580 ml 300 ml 100 ml Physical Exam General: Alert, Cooperative, mild distress Heart: Regular rate Lungs: Crackles Abdomen: Normal bowel sounds, Soft, No tenderness Extremities: No clubbing, No cyanosis, No edema Skin: No rashes, No significant lesion Labs Labs: Laboratory Tests Test 07/09/20 04:30 White Blood Count 13.9 x10^3/uL (4.0-11.0) Red Blood Count 3.29 x10^6/uL (3.50-5.40) Hemoglobin 10.9 g/dL (12.0-15.5) Hematocrit 32.6 % (36.0-47.0) Mean Corpuscular Volume 99 fL (79-100) Mean Corpuscular Hemoglobin 33 pg (25-35) Mean Corpuscular Hemoglobin Concent 33 g/dL (31-37) Red Cell Distribution Width 14.9 % (11.5-14.5) Platelet Count 287 x10^3/uL (140-400) Neutrophils (%) (Auto) 92 % (31-73) Lymphocytes (%) (Auto) 4 % (24-48) Monocytes (%) (Auto) 4 % (0-9) Eosinophils (%) (Auto) 0 % (0-3) Basophils (%) (Auto) 0 % (0-3) Neutrophils # (Auto) 12.8 x10^3/uL (1.8-7.7) Lymphocytes # (Auto) 0.6 x10^3/uL (1.0-4.8) Monocytes # (Auto) 0.6 x10^3/uL (0.0-1.1) Eosinophils # (Auto) 0.0 x10^3/uL (0.0-0.7) Basophils # (Auto) 0.0 x10^3/uL (0.0-0.2) Sodium Level 137 mmol/L (136-145) Potassium Level 5.3 mmol/L (3.5-5.1) Chloride Level 98 mmol/L (98-107) Carbon Dioxide Level 27 mmol/L (21-32) Anion Gap 12 (6-14) Blood Urea Nitrogen 91 mg/dL (7-20) Creatinine 6.0 mg/dL (0.6-1.0) Estimated GFR (Cockcroft-Gault) 6.7 Glucose Level 155 mg/dL (70-99) Calcium Level 8.6 mg/dL (8.5-10.1) Assessment and Plan Assessmemt and Plan Problems Medical Problems: (1) Acute dyspnea Status: Acute (2) ESRD (end stage renal disease) on dialysis Status: Acute (3) Suspected 2019 novel coronavirus infection Status: Acute Comment Review of Relevant I have reviewed the following items thong (where applicable) has been applied. Medications: Current Medications Medications (Trade) Dose Ordered Sig/Emmy Route PRN Reason Start Time Stop Time Status Last Admin Dose Admin Hydralazine HCl (Apresoline Inj) 10 mg PRN Q4HRS PRN IVP ELEVATED BP, SEE COMMENTS 07/09/20 08:15 07/09/20 08:39 Justifications for Admission Other Justification NELLY CARPIO MD Jul 09, 2020 09:46
[2020-07-09 11:00] VITALS: BP 148/62
--- NOTE | 2020-07-09 12:50 | PDOC ---
PULMONARY PROGRESS NOTES DATE: 07/09/20 TIME: 12:50 Subjective on 02, eating lunch sitting on a chair appears comfortable says she is 0k Vitals Vital Signs Date Time Temp Pulse Resp B/P (MAP) Pulse Ox O2 Delivery O2 Flow Rate FiO2 07/09/20 08:39 59 184/79 07/09/20 08:00 Nasal Cannula 3.0 07/09/20 07:00 98.6 17 97 98.6 Comments alert appears comfortable nc at rrr no paradoxical abd motion no accessory muscle use no rash Lungs: Crackles Cardiovascular: S1, S2 Labs Laboratory Tests Test 07/08/20 03:30 07/09/20 04:30 White Blood Count 12.8 x10^3/uL (4.0-11.0) 13.9 x10^3/uL (4.0-11.0) Red Blood Count 3.37 x10^6/uL (3.50-5.40) 3.29 x10^6/uL (3.50-5.40) Hemoglobin 11.2 g/dL (12.0-15.5) 10.9 g/dL (12.0-15.5) Hematocrit 33.1 % (36.0-47.0) 32.6 % (36.0-47.0) Mean Corpuscular Volume 98 fL (79-100) 99 fL (79-100) Mean Corpuscular Hemoglobin 33 pg (25-35) 33 pg (25-35) Mean Corpuscular Hemoglobin Concent 34 g/dL (31-37) 33 g/dL (31-37) Red Cell Distribution Width 14.7 % (11.5-14.5) 14.9 % (11.5-14.5) Platelet Count 250 x10^3/uL (140-400) 287 x10^3/uL (140-400) Neutrophils (%) (Auto) 91 % (31-73) 92 % (31-73) Lymphocytes (%) (Auto) 4 % (24-48) 4 % (24-48) Monocytes (%) (Auto) 4 % (0-9) 4 % (0-9) Eosinophils (%) (Auto) 0 % (0-3) 0 % (0-3) Basophils (%) (Auto) 1 % (0-3) 0 % (0-3) Neutrophils # (Auto) 11.7 x10^3/uL (1.8-7.7) 12.8 x10^3/uL (1.8-7.7) Lymphocytes # (Auto) 0.5 x10^3/uL (1.0-4.8) 0.6 x10^3/uL (1.0-4.8) Monocytes # (Auto) 0.5 x10^3/uL (0.0-1.1) 0.6 x10^3/uL (0.0-1.1) Eosinophils # (Auto) 0.0 x10^3/uL (0.0-0.7) 0.0 x10^3/uL (0.0-0.7) Basophils # (Auto) 0.1 x10^3/uL (0.0-0.2) 0.0 x10^3/uL (0.0-0.2) Sodium Level 136 mmol/L (136-145) 137 mmol/L (136-145) Potassium Level 4.5 mmol/L (3.5-5.1) 5.3 mmol/L (3.5-5.1) Chloride Level 98 mmol/L (98-107) 98 mmol/L (98-107) Carbon Dioxide Level 29 mmol/L (21-32) 27 mmol/L (21-32) Anion Gap 9 (6-14) 12 (6-14) Blood Urea Nitrogen 36 mg/dL (7-20) 91 mg/dL (7-20) Creatinine 3.7 mg/dL (0.6-1.0) 6.0 mg/dL (0.6-1.0) Estimated GFR (Cockcroft-Gault) 11.6 6.7 Glucose Level 153 mg/dL (70-99) 155 mg/dL (70-99) Calcium Level 8.6 mg/dL (8.5-10.1) 8.6 mg/dL (8.5-10.1) Laboratory Tests Test 07/09/20 04:30 White Blood Count 13.9 x10^3/uL (4.0-11.0) Red Blood Count 3.29 x10^6/uL (3.50-5.40) Hemoglobin 10.9 g/dL (12.0-15.5) Hematocrit 32.6 % (36.0-47.0) Mean Corpuscular Volume 99 fL (79-100) Mean Corpuscular Hemoglobin 33 pg (25-35) Mean Corpuscular Hemoglobin Concent 33 g/dL (31-37) Red Cell Distribution Width 14.9 % (11.5-14.5) Platelet Count 287 x10^3/uL (140-400) Neutrophils (%) (Auto) 92 % (31-73) Lymphocytes (%) (Auto) 4 % (24-48) Monocytes (%) (Auto) 4 % (0-9) Eosinophils (%) (Auto) 0 % (0-3) Basophils (%) (Auto) 0 % (0-3) Neutrophils # (Auto) 12.8 x10^3/uL (1.8-7.7) Lymphocytes # (Auto) 0.6 x10^3/uL (1.0-4.8) Monocytes # (Auto) 0.6 x10^3/uL (0.0-1.1) Eosinophils # (Auto) 0.0 x10^3/uL (0.0-0.7) Basophils # (Auto) 0.0 x10^3/uL (0.0-0.2) Sodium Level 137 mmol/L (136-145) Potassium Level 5.3 mmol/L (3.5-5.1) Chloride Level 98 mmol/L (98-107) Carbon Dioxide Level 27 mmol/L (21-32) Anion Gap 12 (6-14) Blood Urea Nitrogen 91 mg/dL (7-20) Creatinine 6.0 mg/dL (0.6-1.0) Estimated GFR (Cockcroft-Gault) 6.7 Glucose Level 155 mg/dL (70-99) Calcium Level 8.6 mg/dL (8.5-10.1) Medications Active Scripts Medications Dose Route/Sig Max Daily Dose Days Date Category Proair Hfa Inhaler (Albuterol Sulfate) 8.5 Gm Hfa.aer.ad 2 Puff INH PRN Q4HRS PRN 07/06/20 Reported Ativan (Lorazepam) 0.5 Mg Tablet 0.5 Mg PO PRN BID PRN 07/06/20 Reported Pantoprazole Sodium 40 Mg Tablet.dr 40 Mg PO BIDAC 07/06/20 Reported Estradiol 42.5 Gm Cream.appl 1 Jeyson VAG DAILY 07/06/20 Reported Hydrocodone-Apap 5-325 (Hydrocodone Bit/Acetaminophen) 1 Each Tablet 1 Tab PO PRN Q4HRS PRN 12/09/16 Rx Children's Aspirin (Aspirin) 81 Mg Tab.chew 81 Mg PO DAILYWBKFT 12/09/16 Rx Impression . IMPRESSION: 1. Acute hypoxic respiratory failure secondary to COVID-19 pneumonia. Other possible differential diagnosis would be acute congestive heart failure. 2. Abnormal chest x-ray with worsening interstitial infiltrates. COVID-19 pneumonia versus congestive heart failure. 3. End-stage renal disease, on hemodialysis. 4. Increased procalcitonin level. 5. Abnormal D-dimer, which can be nonspecific. covid + , Clinically, low suspicion for thromboembolic disease. Plan . RECOMMENDATIONS: 1. Continue present nasal cannula. w titration 2. empiric antibiotic. 3. Continue IV steroids. 4. COVID 19 pos 5. aggressive hemodialysis. per nephro 6. hep for dvt prophylaxis Discussed with RHONA SERRA MD Jul 09, 2020 12:50
[2020-07-09 15:13] VITALS: BP 141/63
[2020-07-09 20:29] VITALS: BP 130/60
[2020-07-10] MEDS: methylPREDNISolone SOD SUCC PF 40 MG/ML VIAL. IV SCH ×3 (00:19→21:52)
[2020-07-10] MEDS: LACTOBACILLUS RHAMNOSUS GG 1 CAPSULE. PO SCH ×3 (00:19→21:53)
[2020-07-10] MEDS: ASCORBIC ACID 500 MG TABLET PO SCH ×4 (00:19→21:53)
[2020-07-10] MEDS: PIPERACILLIN/TAZOBACTAM 2.25 GM in IV NORMAL SALINE 50ML 50 ML IV SCH ×4 (00:19→21:54)
[2020-07-10] MEDS: HEPARIN for SUB-Q USE 5,000 UNIT/ML VIAL. SQ SCH ×4 (00:20→21:53)
[2020-07-10 01:00] VITALS: BP 150/84
[2020-07-10 04:55] LABS: BASO % 0 % (0-3); EOS % 0 % (0-3); HEMATOCRIT 32.2 % (36.0-47.0); HEMOGLOBIN 10.6 g/dL (12.0-15.5); LYMPH # 0.5 x10^3/uL (1.0-4.8); LYMPH % 4 % (24-48); MEAN CORPUSCULAR HEMOGLOBIN 33 pg (25-35); MEAN CORPUSCULAR HGB CONC 33 g/dL (31-37); MEAN CORPUSCULAR VOLUME 99 fL (79-100); MONO # 0.8 x10^3/uL (0.0-1.1); MONO % 6 % (0-9); NEUT # 12.5 x10^3/uL (1.8-7.7); NEUT % 91 % (31-73); PLATELET COUNT 313 x10^3/uL (140-400); RED BLOOD COUNT 3.24 x10^6/uL (3.50-5.40); RED CELL DISTRIBUTION WIDTH 14.7 % (11.5-14.5); WHITE BLOOD COUNT 13.8 x10^3/uL (4.0-11.0)
[2020-07-10 05:14] LABS: CREATININE 7.3 mg/dL (0.6-1.0); GFR 5.3; POTASSIUM 5.9 mmol/L (3.5-5.1)
[2020-07-10 07:00] VITALS: BP 167/73
[2020-07-10] MEDS: PANTOPRAZOLE 40 MG TABLET.DR. PO SCH (07:23)
--- NOTE | 2020-07-10 09:24 | PDOC ---
PULMONARY PROGRESS NOTES DATE: 07/10/20 TIME: 09:21 Subjective PT. resting comfortably on 2 liters N/C no fever, no SOA, no cough Vitals Vital Signs Date Time Temp Pulse Resp B/P (MAP) Pulse Ox O2 Delivery O2 Flow Rate FiO2 07/10/20 07:00 97.6 56 20 167/73 (104) 100 Nasal Cannula 2.0 97.6 Comments alert appears comfortable nc at 2 liters rrr no paradoxical abd motion no accessory muscle use no rash Lungs: Crackles Cardiovascular: S1, S2 Labs Laboratory Tests Test 07/09/20 04:30 07/10/20 03:35 White Blood Count 13.9 x10^3/uL (4.0-11.0) 13.8 x10^3/uL (4.0-11.0) Red Blood Count 3.29 x10^6/uL (3.50-5.40) 3.24 x10^6/uL (3.50-5.40) Hemoglobin 10.9 g/dL (12.0-15.5) 10.6 g/dL (12.0-15.5) Hematocrit 32.6 % (36.0-47.0) 32.2 % (36.0-47.0) Mean Corpuscular Volume 99 fL (79-100) 99 fL (79-100) Mean Corpuscular Hemoglobin 33 pg (25-35) 33 pg (25-35) Mean Corpuscular Hemoglobin Concent 33 g/dL (31-37) 33 g/dL (31-37) Red Cell Distribution Width 14.9 % (11.5-14.5) 14.7 % (11.5-14.5) Platelet Count 287 x10^3/uL (140-400) 313 x10^3/uL (140-400) Neutrophils (%) (Auto) 92 % (31-73) 91 % (31-73) Lymphocytes (%) (Auto) 4 % (24-48) 4 % (24-48) Monocytes (%) (Auto) 4 % (0-9) 6 % (0-9) Eosinophils (%) (Auto) 0 % (0-3) 0 % (0-3) Basophils (%) (Auto) 0 % (0-3) 0 % (0-3) Neutrophils # (Auto) 12.8 x10^3/uL (1.8-7.7) 12.5 x10^3/uL (1.8-7.7) Lymphocytes # (Auto) 0.6 x10^3/uL (1.0-4.8) 0.5 x10^3/uL (1.0-4.8) Monocytes # (Auto) 0.6 x10^3/uL (0.0-1.1) 0.8 x10^3/uL (0.0-1.1) Eosinophils # (Auto) 0.0 x10^3/uL (0.0-0.7) 0.0 x10^3/uL (0.0-0.7) Basophils # (Auto) 0.0 x10^3/uL (0.0-0.2) 0.0 x10^3/uL (0.0-0.2) Sodium Level 137 mmol/L (136-145) 137 mmol/L (136-145) Potassium Level 5.3 mmol/L (3.5-5.1) 5.9 mmol/L (3.5-5.1) Chloride Level 98 mmol/L (98-107) 99 mmol/L (98-107) Carbon Dioxide Level 27 mmol/L (21-32) 23 mmol/L (21-32) Anion Gap 12 (6-14) 15 (6-14) Blood Urea Nitrogen 91 mg/dL (7-20) 127 mg/dL (7-20) Creatinine 6.0 mg/dL (0.6-1.0) 7.3 mg/dL (0.6-1.0) Estimated GFR (Cockcroft-Gault) 6.7 5.3 Glucose Level 155 mg/dL (70-99) 145 mg/dL (70-99) Calcium Level 8.6 mg/dL (8.5-10.1) 9.0 mg/dL (8.5-10.1) Laboratory Tests Test 07/10/20 03:35 White Blood Count 13.8 x10^3/uL (4.0-11.0) Red Blood Count 3.24 x10^6/uL (3.50-5.40) Hemoglobin 10.6 g/dL (12.0-15.5) Hematocrit 32.2 % (36.0-47.0) Mean Corpuscular Volume 99 fL (79-100) Mean Corpuscular Hemoglobin 33 pg (25-35) Mean Corpuscular Hemoglobin Concent 33 g/dL (31-37) Red Cell Distribution Width 14.7 % (11.5-14.5) Platelet Count 313 x10^3/uL (140-400) Neutrophils (%) (Auto) 91 % (31-73) Lymphocytes (%) (Auto) 4 % (24-48) Monocytes (%) (Auto) 6 % (0-9) Eosinophils (%) (Auto) 0 % (0-3) Basophils (%) (Auto) 0 % (0-3) Neutrophils # (Auto) 12.5 x10^3/uL (1.8-7.7) Lymphocytes # (Auto) 0.5 x10^3/uL (1.0-4.8) Monocytes # (Auto) 0.8 x10^3/uL (0.0-1.1) Eosinophils # (Auto) 0.0 x10^3/uL (0.0-0.7) Basophils # (Auto) 0.0 x10^3/uL (0.0-0.2) Sodium Level 137 mmol/L (136-145) Potassium Level 5.9 mmol/L (3.5-5.1) Chloride Level 99 mmol/L (98-107) Carbon Dioxide Level 23 mmol/L (21-32) Anion Gap 15 (6-14) Blood Urea Nitrogen 127 mg/dL (7-20) Creatinine 7.3 mg/dL (0.6-1.0) Estimated GFR (Cockcroft-Gault) 5.3 Glucose Level 145 mg/dL (70-99) Calcium Level 9.0 mg/dL (8.5-10.1) Medications Active Scripts Medications Dose Route/Sig Max Daily Dose Days Date Category Proair Hfa Inhaler (Albuterol Sulfate) 8.5 Gm Hfa.aer.ad 2 Puff INH PRN Q4HRS PRN 07/06/20 Reported Ativan (Lorazepam) 0.5 Mg Tablet 0.5 Mg PO PRN BID PRN 07/06/20 Reported Pantoprazole Sodium 40 Mg Tablet.dr 40 Mg PO BIDAC 07/06/20 Reported Estradiol 42.5 Gm Cream.appl 1 Jeyson VAG DAILY 07/06/20 Reported Hydrocodone-Apap 5-325 (Hydrocodone Bit/Acetaminophen) 1 Each Tablet 1 Tab PO PRN Q4HRS PRN 12/09/16 Rx Children's Aspirin (Aspirin) 81 Mg Tab.chew 81 Mg PO DAILYWBKFT 12/09/16 Rx Comments CXR IMPRESSION: Chronic interstitial changes are identified with superimposed increased interstitial airspace disease in the upper lobes suggestive of multifocal pulmonary infiltrates. Recommend short-term follow-up two-view chest radiograph. Interstitial edema may have similar appearance. Impression . IMPRESSION: 1. Acute hypoxic respiratory failure secondary to COVID-19 pneumonia. Other possible differential diagnosis would be acute congestive heart failure. 2. Abnormal chest x-ray with worsening interstitial infiltrates. COVID-19 pneumonia versus congestive heart failure. 3. End-stage renal disease, on hemodialysis. 4. Increased procalcitonin level. 5. Abnormal D-dimer, which can be nonspecific. covid + , Clinically, low suspicion for thromboembolic disease. Plan . RECOMMENDATIONS: 1. Continue present nasal cannula, titrate oxygen as tolerated 2. empiric antibiotic. 3. Continue IV steroids. 4. COVID 19 pos 5. aggressive hemodialysis. per nephro 6. DVT/GI PPX Discussed with ROCKY BARRIGA MD Jul 10, 2020 09:24
[2020-07-10] MEDS: FOLIC/VIT B COMP W-C (RENAL) TABLET. PO SCH (09:47)
[2020-07-10] MEDS: POLYETHYLENE GLYCOL 3350 17 GM PACKET. PO SCH (09:47)
[2020-07-10] MEDS: ZINC SULFATE 220 MG CAPSULE. PO SCH (09:47)
[2020-07-10] MEDS: CALCIUM ACETATE 667 MG CAPSULE PO SCH ×3 (09:48→21:56)
[2020-07-10] MEDS: CHOLECALCIFEROL (VITAMIN D3) 5,000 UNIT CAPSULE PO SCH (09:48)
[2020-07-10 11:00] VITALS: BP 134/63
--- NOTE | 2020-07-10 11:35 | PDOC ---
PROGRESS NOTES Date of Service: DATE: 07/10/20 TIME: 11:34 Chief Complaint Chief Complaint IMPRESSION COVID-19 Acute hypoxic respiratory failure End-stage renal disease on hemodialysis Osteoarthritis GERD Hypertension Anemia of chronic renal insufficiency Severe protein calorie malnutrition anxiety acute right superior pubic ramus fracture. 04/22 Confusion - likely some ICU delerium. Patient family note that she jokes frequently. I am concerned there may be some underlying cognitive impairment as well though, and have shared this with her family PLAN O2 SUPPORT IV STEROIDS Hemodialysis 07/10 COMFORTABLE RESTING WATCHING TV History of Present Illness History of Present Illness Ms Shelton is an 85 yo F w/PMHx HTN, CKD on hemodialysis brought into the hospital with worsening shortness of breath for the last 2 weeks. She has a cough with some productive sputum. She was seen in the urgent care and was noted to have a temperature of 100 degrees Fahrenheit. Her saturations were 90% on 4 liters nasal cannula. CXR with worsening interstitial infiltrates, COVID 19 test returned positive. 07/07: Patient seen and examined in the [facility] ICU 07/08: Patient seen and [place] [address] isolation unit. Afebrile on 4 L nasal cannulated oxygen. Plan to utilize CR, php consultant services to communicate with her. I informed her on 3 separate times during our conversation that she is positive f or the coronavirus and within 2 to 3 minutes she asked me again when her test is going to come back. The php consultant was frustrated.WBC slightly up today. Afebrile. WBC 13.9 increased again. K5.3. She feels improved, no complaints still on 4 L nasal cannula oxygen.. Vitals Vitals Vital Signs Date Time Temp Pulse Resp B/P (MAP) Pulse Ox O2 Delivery O2 Flow Rate FiO2 07/10/20 11:00 97.6 58 20 134/63 (86) 94 Nasal Cannula 2.0 97.6 Physical Exam Physical Exam RRSTING IN BED, CALM General: Alert, Cooperative, No acute distress, mild distress Heart: Regular rate Lungs: Crackles Abdomen: Normal bowel sounds, Soft, No tenderness Extremities: No clubbing, No cyanosis, No edema Skin: No rashes, No significant lesion Labs LABS DATE: 04/25/2020 5:32 PM INDICATION: Reason: POSSIBLE FRACTURE / Spl. Instructions: / History: COMPARISON: 04/03/2017 FINDINGS: Marked osteopenia limits evaluation for acute fracture. Mild deformity of the left superior and inferior pubic ramus likely from old fractures as seen on 04/03/2017. There is cortical offset at the right superior pubic ramus suspicious for nondisplaced fracture. No definite left femur fracture is seen. Atherosclerotic vascular calcifications are seen. Large volume colonic stool content and small and large bowel gas is seen obscuring the sacrum and pelvic wings.. Sacral plasty changes are seen. IMPRESSION: 1. Marked osteopenia as well as prominent overlying bowel gas and stool significantly limits evaluation for acute fracture. Within these constraints: 2. Suspected acute right superior pubic ramus fracture. This can be confirmed by CT or MRI. 3. Chronic appearing left superior and inferior pubic rami fractures. Electronically signed by: Dyllan Portillo MD (04/25/2020 6:11 PM) [facility] DICTATED and SIGNED BY: DYLLAN PORTILLO MD DATE: 04/25/20 1811 PORTABLE CHEST 1V 07/06/2020 1:45 PM INDICATION: Shortness of air COMPARISON: 10/22/2018 TECHNIQUE: Portable frontal view of the chest is provided. FINDINGS: The cardiomediastinal silhouette is within normal limits. Right chest wall double-lumen dialysis catheter is identified in similar position. There is increased interstitial thickening in the right upper lobe and to a lesser extent left upper lobe suspicious for multifocal pulmonary infiltrates. Chronic interstitial changes are present. No significant pleural effusions or pneumothorax. 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 IMPRESSION: Chronic interstitial changes are identified with superimposed increased interstitial airspace disease in the upper lobes suggestive of multifocal pulmonary infiltrates. Recommend short-term follow-up two-view chest radiograph. Interstitial edema may have similar appearance. Electronically signed by: Richie Beasley MD (07/06/2020 2:12 PM) [facility] DICTATED and SIGNED BY: RICHIE BEASLEY MD DATE: 07/06/20 1412 Laboratory Tests Test 07/10/20 03:35 White Blood Count 13.8 x10^3/uL (4.0-11.0) Red Blood Count 3.24 x10^6/uL (3.50-5.40) Hemoglobin 10.6 g/dL (12.0-15.5) Hematocrit 32.2 % (36.0-47.0) Mean Corpuscular Volume 99 fL (79-100) Mean Corpuscular Hemoglobin 33 pg (25-35) Mean Corpuscular Hemoglobin Concent 33 g/dL (31-37) Red Cell Distribution Width 14.7 % (11.5-14.5) Platelet Count 313 x10^3/uL (140-400) Neutrophils (%) (Auto) 91 % (31-73) Lymphocytes (%) (Auto) 4 % (24-48) Monocytes (%) (Auto) 6 % (0-9) Eosinophils (%) (Auto) 0 % (0-3) Basophils (%) (Auto) 0 % (0-3) Neutrophils # (Auto) 12.5 x10^3/uL (1.8-7.7) Lymphocytes # (Auto) 0.5 x10^3/uL (1.0-4.8) Monocytes # (Auto) 0.8 x10^3/uL (0.0-1.1) Eosinophils # (Auto) 0.0 x10^3/uL (0.0-0.7) Basophils # (Auto) 0.0 x10^3/uL (0.0-0.2) Sodium Level 137 mmol/L (136-145) Potassium Level 5.9 mmol/L (3.5-5.1) Chloride Level 99 mmol/L (98-107) Carbon Dioxide Level 23 mmol/L (21-32) Anion Gap 15 (6-14) Blood Urea Nitrogen 127 mg/dL (7-20) Creatinine 7.3 mg/dL (0.6-1.0) Estimated GFR (Cockcroft-Gault) 5.3 Glucose Level 145 mg/dL (70-99) Calcium Level 9.0 mg/dL (8.5-10.1) Assessment and Plan Assessmemt and Plan Problems Medical Problems: (1) Acute dyspnea Status: Acute (2) ESRD (end stage renal disease) on dialysis Status: Acute (3) Suspected 2019 novel coronavirus infection Status: Acute Comment Review of Relevant I have reviewed the following items thong (where applicable) has been applied. Labs Laboratory Tests Test 07/09/20 04:30 07/10/20 03:35 White Blood Count 13.9 x10^3/uL (4.0-11.0) 13.8 x10^3/uL (4.0-11.0) Red Blood Count 3.29 x10^6/uL (3.50-5.40) 3.24 x10^6/uL (3.50-5.40) Hemoglobin 10.9 g/dL (12.0-15.5) 10.6 g/dL (12.0-15.5) Hematocrit 32.6 % (36.0-47.0) 32.2 % (36.0-47.0) Mean Corpuscular Volume 99 fL (79-100) 99 fL (79-100) Mean Corpuscular Hemoglobin 33 pg (25-35) 33 pg (25-35) Mean Corpuscular Hemoglobin Concent 33 g/dL (31-37) 33 g/dL (31-37) Red Cell Distribution Width 14.9 % (11.5-14.5) 14.7 % (11.5-14.5) Platelet Count 287 x10^3/uL (140-400) 313 x10^3/uL (140-400) Neutrophils (%) (Auto) 92 % (31-73) 91 % (31-73) Lymphocytes (%) (Auto) 4 % (24-48) 4 % (24-48) Monocytes (%) (Auto) 4 % (0-9) 6 % (0-9) Eosinophils (%) (Auto) 0 % (0-3) 0 % (0-3) Basophils (%) (Auto) 0 % (0-3) 0 % (0-3) Neutrophils # (Auto) 12.8 x10^3/uL (1.8-7.7) 12.5 x10^3/uL (1.8-7.7) Lymphocytes # (Auto) 0.6 x10^3/uL (1.0-4.8) 0.5 x10^3/uL (1.0-4.8) Monocytes # (Auto) 0.6 x10^3/uL (0.0-1.1) 0.8 x10^3/uL (0.0-1.1) Eosinophils # (Auto) 0.0 x10^3/uL (0.0-0.7) 0.0 x10^3/uL (0.0-0.7) Basophils # (Auto) 0.0 x10^3/uL (0.0-0.2) 0.0 x10^3/uL (0.0-0.2) Sodium Level 137 mmol/L (136-145) 137 mmol/L (136-145) Potassium Level 5.3 mmol/L (3.5-5.1) 5.9 mmol/L (3.5-5.1) Chloride Level 98 mmol/L (98-107) 99 mmol/L (98-107) Carbon Dioxide Level 27 mmol/L (21-32) 23 mmol/L (21-32) Anion Gap 12 (6-14) 15 (6-14) Blood Urea Nitrogen 91 mg/dL (7-20) 127 mg/dL (7-20) Creatinine 6.0 mg/dL (0.6-1.0) 7.3 mg/dL (0.6-1.0) Estimated GFR (Cockcroft-Gault) 6.7 5.3 Glucose Level 155 mg/dL (70-99) 145 mg/dL (70-99) Calcium Level 8.6 mg/dL (8.5-10.1) 9.0 mg/dL (8.5-10.1) Laboratory Tests Test 07/10/20 03:35 White Blood Count 13.8 x10^3/uL (4.0-11.0) Red Blood Count 3.24 x10^6/uL (3.50-5.40) Hemoglobin 10.6 g/dL (12.0-15.5) Hematocrit 32.2 % (36.0-47.0) Mean Corpuscular Volume 99 fL (79-100) Mean Corpuscular Hemoglobin 33 pg (25-35) Mean Corpuscular Hemoglobin Concent 33 g/dL (31-37) Red Cell Distribution Width 14.7 % (11.5-14.5) Platelet Count 313 x10^3/uL (140-400) Neutrophils (%) (Auto) 91 % (31-73) Lymphocytes (%) (Auto) 4 % (24-48) Monocytes (%) (Auto) 6 % (0-9) Eosinophils (%) (Auto) 0 % (0-3) Basophils (%) (Auto) 0 % (0-3) Neutrophils # (Auto) 12.5 x10^3/uL (1.8-7.7) Lymphocytes # (Auto) 0.5 x10^3/uL (1.0-4.8) Monocytes # (Auto) 0.8 x10^3/uL (0.0-1.1) Eosinophils # (Auto) 0.0 x10^3/uL (0.0-0.7) Basophils # (Auto) 0.0 x10^3/uL (0.0-0.2) Sodium Level 137 mmol/L (136-145) Potassium Level 5.9 mmol/L (3.5-5.1) Chloride Level 99 mmol/L (98-107) Carbon Dioxide Level 23 mmol/L (21-32) Anion Gap 15 (6-14) Blood Urea Nitrogen 127 mg/dL (7-20) Creatinine 7.3 mg/dL (0.6-1.0) Estimated GFR (Cockcroft-Gault) 5.3 Glucose Level 145 mg/dL (70-99) Calcium Level 9.0 mg/dL (8.5-10.1) Microbiology 07/06/20 Blood Culture - Preliminary, Resulted NO GROWTH AFTER 3 DAYS Medications Current Medications Methylprednisolone Sodium Succinate (SOLU-Medrol 40MG VIAL) 40 mg BID IV Last administered on 07/10/20at 09:47; Start 07/06/20 at 16:00; Stop 07/16/20 at 15:59 Ascorbic Acid (Vitamin C) 500 mg Q6HRS PO Last administered on 07/10/20at 06:04; Start 07/06/20 at 18:00 Zinc Sulfate (Orazinc) 220 mg DAILY PO Last administered on 07/10/20at 09:47; Start 07/06/20 at 17:00 Vitamin D (Vitamin D3) 5,000 unit DAILY PO Last administered on 07/10/20at 09:48; Start 07/06/20 at 16:00 Ondansetron HCl (Zofran) 4 mg PRN Q6HRS PRN IVP NAUSEA/VOMITING; Start 07/06/20 at 16:15 Famotidine (Pepcid Vial) 20 mg Q48H IVP Last administered on 07/09/20at 00:36; Start 07/06/20 at 21:00; Stop 07/09/20 at 13:55; Status DC Enoxaparin Sodium (Lovenox 30mg Syringe) 30 mg Q24H SQ Last administered on 07/08/20at 18:46; Start 07/06/20 at 17:00; Stop 07/09/20 at 13:52; Status DC Sodium Chloride (Normal Saline Flush) 3 ml QSHIFT PRN IV AFTER MEDS AND BLOOD DRAWS; Start 07/06/20 at 16:15 Acetaminophen (Tylenol) 650 mg PRN Q6HRS PRN PO MILD PAIN / TEMP > 100.3'F; Start 07/06/20 at 20:00 Vitamin B Complex/ Vitamin C (Citlali-Pavel) 1 tab DAILY PO Last administered on 07/10/20at 09:47; Start 07/07/20 at 09:00 Acetaminophen/ Hydrocodone Bitart (Lortab 5/325) 1 tab PRN Q4HRS PRN PO MODERATE-SEVERE PAIN; Start 07/06/20 at 20:00 Pantoprazole Sodium (Protonix) 40 mg DAILYAC PO Last administered on 07/10/20at 07:23; Start 07/07/20 at 07:30 Polyethylene Glycol (miraLAX PACKET) 17 gm DAILY PO Last administered on 07/10/20at 09:47; Start 07/07/20 at 09:00 Calcium Acetate (Phoslo) 1,334 mg TIDWMEALS PO Last administered on 07/10/20at 09:48; Start 07/07/20 at 08:00 Piperacillin Sod/ Tazobactam Sod (Zosyn Per Pharmacy) 1 each PRN DAILY PRN MC SEE COMMENTS; Start 07/07/20 at 10:45 Piperacillin Sod/ Tazobactam Sod 2.25 gm/Sodium Chloride 50 ml @ 100 mls/hr Q6HRS IV ; Start 07/07/20 at 11:00; Status Cancel Piperacillin Sod/ Tazobactam Sod 2.25 gm/Sodium Chloride 50 ml @ 100 mls/hr Q8HRS IV Last administered on 07/10/20at 06:04; Start 07/07/20 at 11:30 Lactobacillus Rhamnosus (Culturelle) 1 cap BID PO Last administered on 07/10/20at 09:47; Start 07/07/20 at 12:00 Sodium Chloride 1,000 ml @ 1,000 mls/hr Q1H PRN IV hypotension; Start 07/07/20 at 17:00; Stop 07/07/20 at 22:59; Status DC Albumin Human 200 ml @ 200 mls/hr 1X PRN PRN IV Hypotension; Start 07/07/20 at 17:00; Stop 07/07/20 at 22:59; Status DC Sodium Chloride 1,000 ml @ 400 mls/hr Q2H30M PRN IV PATENCY; Start 07/07/20 at 17:00; Stop 07/08/20 at 04:59; Status DC Info (PHARMACY MONITORING -- do not chart) 1 each PRN DAILY PRN MC SEE COMMENT S; Start 07/07/20 at 18:15; Stop 07/08/20 at 15:54; Status DC Info (PHARMACY MONITORING -- do not chart) 1 each PRN DAILY PRN MC SEE COMMENTS; Start 07/07/20 at 18:15 Hydralazine HCl (Apresoline Inj) 10 mg PRN Q4HRS PRN IVP ELEVATED BP, SEE COMMENTS Last administered on 07/09/20at 08:39; Start 07/09/20 at 08:15 Heparin Sodium (Porcine) (Heparin Sodium) 5,000 unit Q8HRS SQ Last administered on 07/10/20at 06:06; Start 07/09/20 at 22:00 Famotidine (Pepcid) 20 mg Q48H PO ; Start 07/10/20 at 21:00 Active Scripts Active Hydrocodone-Apap 5-325 (Hydrocodone Bit/Acetaminophen) 1 Each Tablet 1 Tab PO PRN Q4HRS PRN Children's Aspirin (Aspirin) 81 Mg Tab.chew 81 Mg PO DAILYWBKFT Reported Proair Hfa Inhaler (Albuterol Sulfate) 8.5 Gm Hfa.aer.ad 2 Puff INH PRN Q4HRS PRN Ativan (Lorazepam) 0.5 Mg Tablet 0.5 Mg PO PRN BID PRN Pantoprazole Sodium 40 Mg Tablet.dr 40 Mg PO BIDAC Estradiol 42.5 Gm Cream.appl 1 Jeyson VAG DAILY Vitals/I & O Vital Sign - Last 24 Hours 07/09/20 07/09/20 07/09/20 07/10/20 15:13 20:00 20:29 01:00 Temp 97.8 96.3 97.8 96.3 Pulse 76 61 68 Resp 20 24 25 B/P (MAP) 141/63 (89) 130/60 (83) 150/84 (106) Pulse Ox 92 O2 Delivery Nasal Cannula Nasal Cannula Room Air Room Air O2 Flow Rate 3.0 2.0 07/10/20 07/10/20 07:00 11:00 Temp 97.6 97.6 97.6 97.6 Pulse 56 58 Resp 20 20 B/P (MAP) 167/73 (104) 134/63 (86) Pulse Ox 100 94 O2 Delivery Nasal Cannula Nasal Cannula O2 Flow Rate 2.0 2.0 Intake and Output 07/09/20 07/09/20 07/10/20 15:00 23:00 07:00 Output Total 0 ml Balance 0 ml Nutrition Consultation Dietary Evaluation: Recommendations by RD: Dietary education by RD, Increase Calorie Intake, Protein supplementation Comments: Continue w/renal diet as ordered REC nepro q day or more often per pt preference Expected Outcomes/Goals: PO intake to meet >75% est needs Malnutrition Findings: Body Fat Depletion (Non Severe: Mild Depletion Weight Status: Appropriate Justicifation of Admission Dx: Justifications for Admission: Justification of Admission Dx: Yes Chronic Renal Failure: Hemodynamic Instability FELICITA KHAN MD Jul 10, 2020 11:35
--- NOTE | 2020-07-10 14:17 | PDOC ---
PROGRESS NOTES Date of Service DATE: 07/10/20 TIME: 14:16 Subjective Subjective EVALUATED IN FOLLOW UP OF ESRD Objective Objective Vital Signs Date Time Temp Pulse Resp B/P (MAP) Pulse Ox O2 Delivery O2 Flow Rate FiO2 07/10/20 11:00 97.6 58 20 134/63 (86) 94 Nasal Cannula 2.0 97.6 Intake and Output 07/10/20 07:00 Output Total 0 ml Balance 0 ml Output Urine Total 0 ml # Voids 2 Physical Exam Physical Exam COVID 19 + AND SUCH NO BEDSIDE EXAM Diagnosis RENAL FAILURE: ESRD Assessment Assessment Problems Medical Problems: (1) Acute dyspnea Status: Acute (2) ESRD (end stage renal disease) on dialysis Status: Acute (3) Suspected 2019 novel coronavirus infection Status: Acute Plan Plan of Care FOR DIALYSIS TODAY. EPOGEN FOR ANEMIA PER LAB. Comment Review of Relevant I have reviewed the following items thong (where applicable) has been applied. Labs Laboratory Tests Test 07/09/20 04:30 07/10/20 03:35 White Blood Count 13.9 x10^3/uL (4.0-11.0) 13.8 x10^3/uL (4.0-11.0) Red Blood Count 3.29 x10^6/uL (3.50-5.40) 3.24 x10^6/uL (3.50-5.40) Hemoglobin 10.9 g/dL (12.0-15.5) 10.6 g/dL (12.0-15.5) Hematocrit 32.6 % (36.0-47.0) 32.2 % (36.0-47.0) Mean Corpuscular Volume 99 fL (79-100) 99 fL (79-100) Mean Corpuscular Hemoglobin 33 pg (25-35) 33 pg (25-35) Mean Corpuscular Hemoglobin Concent 33 g/dL (31-37) 33 g/dL (31-37) Red Cell Distribution Width 14.9 % (11.5-14.5) 14.7 % (11.5-14.5) Platelet Count 287 x10^3/uL (140-400) 313 x10^3/uL (140-400) Neutrophils (%) (Auto) 92 % (31-73) 91 % (31-73) Lymphocytes (%) (Auto) 4 % (24-48) 4 % (24-48) Monocytes (%) (Auto) 4 % (0-9) 6 % (0-9) Eosinophils (%) (Auto) 0 % (0-3) 0 % (0-3) Basophils (%) (Auto) 0 % (0-3) 0 % (0-3) Neutrophils # (Auto) 12.8 x10^3/uL (1.8-7.7) 12.5 x10^3/uL (1.8-7.7) Lymphocytes # (Auto) 0.6 x10^3/uL (1.0-4.8) 0.5 x10^3/uL (1.0-4.8) Monocytes # (Auto) 0.6 x10^3/uL (0.0-1.1) 0.8 x10^3/uL (0.0-1.1) Eosinophils # (Auto) 0.0 x10^3/uL (0.0-0.7) 0.0 x10^3/uL (0.0-0.7) Basophils # (Auto) 0.0 x10^3/uL (0.0-0.2) 0.0 x10^3/uL (0.0-0.2) Sodium Level 137 mmol/L (136-145) 137 mmol/L (136-145) Potassium Level 5.3 mmol/L (3.5-5.1) 5.9 mmol/L (3.5-5.1) Chloride Level 98 mmol/L (98-107) 99 mmol/L (98-107) Carbon Dioxide Level 27 mmol/L (21-32) 23 mmol/L (21-32) Anion Gap 12 (6-14) 15 (6-14) Blood Urea Nitrogen 91 mg/dL (7-20) 127 mg/dL (7-20) Creatinine 6.0 mg/dL (0.6-1.0) 7.3 mg/dL (0.6-1.0) Estimated GFR (Cockcroft-Gault) 6.7 5.3 Glucose Level 155 mg/dL (70-99) 145 mg/dL (70-99) Calcium Level 8.6 mg/dL (8.5-10.1) 9.0 mg/dL (8.5-10.1) Laboratory Tests Test 07/10/20 03:35 White Blood Count 13.8 x10^3/uL (4.0-11.0) Red Blood Count 3.24 x10^6/uL (3.50-5.40) Hemoglobin 10.6 g/dL (12.0-15.5) Hematocrit 32.2 % (36.0-47.0) Mean Corpuscular Volume 99 fL (79-100) Mean Corpuscular Hemoglobin 33 pg (25-35) Mean Corpuscular Hemoglobin Concent 33 g/dL (31-37) Red Cell Distribution Width 14.7 % (11.5-14.5) Platelet Count 313 x10^3/uL (140-400) Neutrophils (%) (Auto) 91 % (31-73) Lymphocytes (%) (Auto) 4 % (24-48) Monocytes (%) (Auto) 6 % (0-9) Eosinophils (%) (Auto) 0 % (0-3) Basophils (%) (Auto) 0 % (0-3) Neutrophils # (Auto) 12.5 x10^3/uL (1.8-7.7) Lymphocytes # (Auto) 0.5 x10^3/uL (1.0-4.8) Monocytes # (Auto) 0.8 x10^3/uL (0.0-1.1) Eosinophils # (Auto) 0.0 x10^3/uL (0.0-0.7) Basophils # (Auto) 0.0 x10^3/uL (0.0-0.2) Sodium Level 137 mmol/L (136-145) Potassium Level 5.9 mmol/L (3.5-5.1) Chloride Level 99 mmol/L (98-107) Carbon Dioxide Level 23 mmol/L (21-32) Anion Gap 15 (6-14) Blood Urea Nitrogen 127 mg/dL (7-20) Creatinine 7.3 mg/dL (0.6-1.0) Estimated GFR (Cockcroft-Gault) 5.3 Glucose Level 145 mg/dL (70-99) Calcium Level 9.0 mg/dL (8.5-10.1) Microbiology 07/06/20 Blood Culture - Preliminary, Resulted NO GROWTH AFTER 3 DAYS Medications Current Medications Methylprednisolone Sodium Succinate (SOLU-Medrol 40MG VIAL) 40 mg BID IV Last administered on 07/10/20 09:47; Start 07/06/20 at 16:00; Stop 07/16/20 at 15:59 Ascorbic Acid (Vitamin C) 500 mg Q6HRS PO Last administered on 07/10/20at 13:53; Start 07/06/20 at 18:00 Zinc Sulfate (Orazinc) 220 mg DAILY PO Last administered on 07/10/20 09:47; Start 07/06/20 at 17:00 Vitamin D (Vitamin D3) 5,000 unit DAILY PO Last administered on 07/10/20at 09:48; Start 07/06/20 at 16:00 Ondansetron HCl (Zofran) 4 mg PRN Q6HRS PRN IVP NAUSEA/VOMITING; Start 07/06/20 at 16:15 Famotidine (Pepcid Vial) 20 mg Q48H IVP Last administered on 07/09/20at 00:36; Start 07/06/20 at 21:00; Stop 07/09/20 at 13:55; Status DC Enoxaparin Sodium (Lovenox 30mg Syringe) 30 mg Q24H SQ Last administered on 07/08/20at 18:46; Start 07/06/20 at 17:00; Stop 07/09/20 at 13:52; Status DC Sodium Chloride (Normal Saline Flush) 3 ml QSHIFT PRN IV AFTER MEDS AND BLOOD DRAWS; Start 07/06/20 at 16:15 Acetaminophen (Tylenol) 650 mg PRN Q6HRS PRN PO MILD PAIN / TEMP > 100.3'F; Start 07/06/20 at 20:00 Vitamin B Complex/ Vitamin C (Citlali-Pavel) 1 tab DAILY PO Last administered on 07/10/20at 09:47; Start 07/07/20 at 09:00 Acetaminophen/ Hydrocodone Bitart (Lortab 5/325) 1 tab PRN Q4HRS PRN PO MODERA TE-SEVERE PAIN; Start 07/06/20 at 20:00 Pantoprazole Sodium (Protonix) 40 mg DAILYAC PO Last administered on 07/10/20at 07:23; Start 07/07/20 at 07:30 Polyethylene Glycol (miraLAX PACKET) 17 gm DAILY PO Last administered on 07/10/20 09:47; Start 07/07/20 at 09:00 Calcium Acetate (Phoslo) 1,334 mg TIDWMEALS PO Last administered on 07/10/20at 13:53; Start 07/07/20 at 08:00 Piperacillin Sod/ Tazobactam Sod (Zosyn Per Pharmacy) 1 each PRN DAILY PRN MC SEE COMMENTS; Start 07/07/20 at 10:45 Piperacillin Sod/ Tazobactam Sod 2.25 gm/Sodium Chloride 50 ml @ 100 mls/hr Q6HRS IV ; Start 07/07/20 at 11:00; Status Cancel Piperacillin Sod/ Tazobactam Sod 2.25 gm/Sodium Chloride 50 ml @ 100 mls/hr Q8HRS IV Last administered on 07/10/20at 13:53; Start 07/07/20 at 11:30 Lactobacillus Rhamnosus (Culturelle) 1 cap BID PO Last administered on 07/10/20at 09:47; Start 07/07/20 at 12:00 Sodium Chloride 1,000 ml @ 1,000 mls/hr Q1H PRN IV hypotension; Start 07/07/20 at 17:00; Stop 07/07/20 at 22:59; Status DC Albumin Human 200 ml @ 200 mls/hr 1X PRN PRN IV Hypotension; Start 07/07/20 at 17:00; Stop 07/07/20 at 22:59; Status DC Sodium Chloride 1,000 ml @ 400 mls/hr Q2H30M PRN IV PATENCY; Start 07/07/20 at 17:00; Stop 07/08/20 at 04:59; Status DC Info (PHARMACY MONITORING -- do not chart) 1 each PRN DAILY PRN MC SEE COMMENTS; Start 07/07/20 at 18:15; Stop 07/08/20 at 15:54; Status DC Info (PHARMACY MONITORING -- do not chart) 1 each PRN DAILY PRN MC SEE COMMENTS; Start 07/07/20 at 18:15 Hydralazine HCl (Apresoline Inj) 10 mg PRN Q4HRS PRN IVP ELEVATED BP, SEE COMMENTS Last administered on 07/09/20at 08:39; Start 07/09/20 at 08:15 Heparin Sodium (Porcine) (Heparin Sodium) 5,000 unit Q8HRS SQ Last administered on 07/10/20at 13:53; Start 07/09/20 at 22:00 Famotidine (Pepcid) 20 mg Q48H PO ; Start 07/10/20 at 21:00 Active Scripts Active Hydrocodone-Apap 5-325 (Hydrocodone Bit/Acetaminophen) 1 Each Tablet 1 Tab PO PRN Q4HRS PRN Children's Aspirin (Aspirin) 81 Mg Tab.chew 81 Mg PO DAILYWBKFT Reported Proair Hfa Inhaler (Albuterol Sulfate) 8.5 Gm Hfa.aer.ad 2 Puff INH PRN Q4HRS PRN Ativan (Lorazepam) 0.5 Mg Tablet 0.5 Mg PO PRN BID PRN Pantoprazole Sodium 40 Mg Tablet.dr 40 Mg PO BIDAC Estradiol 42.5 Gm Cream.appl 1 Jeyson VAG DAILY Vitals/I & O Vital Sign - Last 24 Hours 07/09/20 07/09/20 07/09/20 07/10/20 15:13 20:00 20:29 01:00 Temp 97.8 96.3 97.8 96.3 Pulse 76 61 68 Resp 20 24 25 B/P (MAP) 141/63 (89) 130/60 (83) 150/84 (106) Pulse Ox 92 O2 Delivery Nasal Cannula Nasal Cannula Room Air Room Air O2 Flow Rate 3.0 2.0 07/10/20 07/10/20 07:00 11:00 Temp 97.6 97.6 97.6 97.6 Pulse 56 58 Resp 20 20 B/P (MAP) 167/73 (104) 134/63 (86) Pulse Ox 100 94 O2 Delivery Nasal Cannula Nasal Cannula O2 Flow Rate 2.0 2.0 Intake and Output 07/09/20 07/09/20 07/10/20 15:00 23:00 07:00 Output Total 0 ml Balance 0 ml Justifications for Admission Other Justification Nutrition Consultation Dietary Evaluation: Recommendations by RD: Dietary education by RD, Increase Calorie Intake, Protein supplementation Comments: Continue w/renal diet as ordered REC nepro q day or more often per pt preference Expected Outcomes/Goals: PO intake to meet >75% est needs Malnutrition Findings: Body Fat Depletion (Non Severe: Mild Depletion Weight Status: Appropriate ZACH TRENT MD Jul 10, 2020 14:17
[2020-07-10 15:00] VITALS: BP 164/71
[2020-07-10] MEDS ORDERED: IV NORMAL SALINE 1000ML BAG 1,000 ML IV PRN ×2 (15:40)
[2020-07-10] MEDS ORDERED: ALBUMIN HUMAN 25% 200 ML IV PRN (15:45)
[2020-07-10] MEDS ORDERED: DIALYSIS PATIENT. MC PRN (15:45)
[2020-07-10] MEDS ORDERED: diphenhydrAMINE 50 MG/ML VIAL IV PRN ×2 (15:45)
[2020-07-10] MEDS ORDERED: 0.9 % SODIUM CHLORIDE 10 ML DISP.SYRIN. IV PRN ×2 (15:45)
[2020-07-10] MEDS ORDERED: DEXTROSE 50% 25 GM / 50ML DISP.SYRIN. IV PRN (19:00)
[2020-07-10 19:54] VITALS: BP 127/60
[2020-07-10] MEDS: FAMOTIDINE 20 MG TABLET. PO SCH (21:55)
[2020-07-10 23:00] VITALS: BP 134/63
--- NOTE | 2020-07-11 02:42 | NUR ---
Pt back from dialysis at 1943.2L had been taken off. VS obtained - see VS flowsheet. Pt very concerned about blood pressure (had to call granddaughter Alxeia, to find out why pt so upset). Pt had been trying to communicate with RN and RN unable to understand as pt [place] speaking only. Granddaughter, Alexia Pinto, called and asked to help discover what pt wanted. Granddaughter returned call after speaking with pt and reported that pt very concerned about blood pressure. RN informed granddaughter that BP was WNL. Granddaughter also stated that pt gets anxious as pt is very independent. Later, pt son called stating that pt concerned about BP. RN again reported to son that BP WNL. Son asked if pt could get something to eat. Pt had not conveyed to RN that was hungry. Given box lunch and some snacks. Pt calmer after that. Will continue to monitor pt status closely
[2020-07-11 03:00] VITALS: BP 152/67
[2020-07-11 04:53] LABS: BASO % 0 % (0-3); EOS % 0 % (0-3); HEMATOCRIT 31.9 % (36.0-47.0); HEMOGLOBIN 10.7 g/dL (12.0-15.5); LYMPH # 0.5 x10^3/uL (1.0-4.8); LYMPH % 4 % (24-48); MEAN CORPUSCULAR HEMOGLOBIN 33 pg (25-35); MEAN CORPUSCULAR HGB CONC 34 g/dL (31-37); MEAN CORPUSCULAR VOLUME 99 fL (79-100); MONO # 0.4 x10^3/uL (0.0-1.1); MONO % 3 % (0-9); NEUT % 92 % (31-73); PLATELET COUNT 338 x10^3/uL (140-400); RED BLOOD COUNT 3.24 x10^6/uL (3.50-5.40); WHITE BLOOD COUNT 11.9 x10^3/uL (4.0-11.0)
[2020-07-11 05:05] LABS: CREATININE 3.9 mg/dL (0.6-1.0); POTASSIUM 4.6 mmol/L (3.5-5.1)
[2020-07-11] MEDS: PIPERACILLIN/TAZOBACTAM 2.25 GM in IV NORMAL SALINE 50ML 50 ML IV SCH ×3 (06:12→21:36)
[2020-07-11] MEDS: ASCORBIC ACID 500 MG TABLET PO SCH ×5 (06:13→23:19)
[2020-07-11] MEDS: HEPARIN for SUB-Q USE 5,000 UNIT/ML VIAL. SQ SCH ×3 (06:13→21:34)
[2020-07-11 07:00] VITALS: BP 154/65
[2020-07-11] MEDS: CALCIUM ACETATE 667 MG CAPSULE PO SCH ×3 (09:26→17:22)
[2020-07-11] MEDS: FOLIC/VIT B COMP W-C (RENAL) TABLET. PO SCH (09:26)
[2020-07-11] MEDS: ZINC SULFATE 220 MG CAPSULE. PO SCH (09:27)
[2020-07-11] MEDS: CHOLECALCIFEROL (VITAMIN D3) 5,000 UNIT CAPSULE PO SCH (09:27)
[2020-07-11] MEDS: PANTOPRAZOLE 40 MG TABLET.DR. PO SCH (09:27)
[2020-07-11] MEDS: methylPREDNISolone SOD SUCC PF 40 MG/ML VIAL. IV SCH ×2 (09:27→21:32)
[2020-07-11] MEDS: LACTOBACILLUS RHAMNOSUS GG 1 CAPSULE. PO SCH ×2 (09:27→21:32)
[2020-07-11] MEDS: POLYETHYLENE GLYCOL 3350 17 GM PACKET. PO SCH (09:27)
--- NOTE | 2020-07-11 10:04 | PDOC ---
PROGRESS NOTES Date of Service: DATE: 07/11/20 TIME: 10:02 Chief Complaint Chief Complaint IMPRESSION COVID-19 Acute hypoxic respiratory failure End-stage renal disease on hemodialysis Osteoarthritis GERD Hypertension Anemia of chronic renal insufficiency Severe protein calorie malnutrition anxiety acute right superior pubic ramus fracture. 04/22 Confusion - likely some ICU delerium. Patient family note that she jokes frequently. some underlying cognitive impairment PLAN O2 SUPPORT IV STEROIDS Hemodialysis 07/11 COMFORTABLE RESTING WATCHING TV D/W RN Problem List (body system elements) * Impaired fnctnl mobility * Respiration/perfusion History of Present Illness History of Present Illness Ms Shelton is an 85 yo F w/PMHx HTN, CKD on hemodialysis brought into the hospital with worsening shortness of breath for the last 2 weeks. She has a cough with some productive sputum. She was seen in the urgent care and was noted to have a temperature of 100 degrees Fahrenheit. Her saturations were 90% on 4 liters nasal cannula. CXR with worsening interstitial infiltrates, COVID 19 test returned positive. 07/07: Patient seen and examined in the [facility]19 ICU 07/08: Patient seen and [facility]19 isolation unit. Afebrile on 4 L nasal cannulated oxygen. Plan to utilize CR, rn occupational health services to communicate with her. I informed her on 3 separate times during our conversation that she is positive for the coronavirus and within 2 to 3 minutes she asked me again when her test is going to come back. The rn occupational health was frustrated.WBC slightly up today. Afebrile. WBC 13.9 increased again. K5.3. She feels improved, no complaints still on 4 L nasal cannula oxygen.. Vitals Vitals Vital Signs Date Time Temp Pulse Resp B/P (MAP) Pulse Ox O2 Delivery O2 Flow Rate FiO2 07/11/20 07:00 97.6 56 22 154/65 (94) 97 Room Air 97.6 07/10/20 23:00 2.0 Physical Exam Physical Exam RRSTING IN BED, CALM General: Alert, Cooperative, No acute distress, mild distress Heart: Regular rate Lungs: Crackles Abdomen: Normal bowel sounds, Soft, No tenderness Extremities: No clubbing, No cyanosis, No edema Skin: No rashes, No significant lesion Labs LABS Laboratory Tests Test 07/11/20 04:35 White Blood Count 11.9 x10^3/uL (4.0-11.0) Red Blood Count 3.24 x10^6/uL (3.50-5.40) Hemoglobin 10.7 g/dL (12.0-15.5) Hematocrit 31.9 % (36.0-47.0) Mean Corpuscular Volume 99 fL (79-100) Mean Corpuscular Hemoglobin 33 pg (25-35) Mean Corpuscular Hemoglobin Concent 34 g/dL (31-37) Red Cell Distribution Width 15.0 % (11.5-14.5) Platelet Count 338 x10^3/uL (140-400) Neutrophils (%) (Auto) 92 % (31-73) Lymphocytes (%) (Auto) 4 % (24-48) Monocytes (%) (Auto) 3 % (0-9) Eosinophils (%) (Auto) 0 % (0-3) Basophils (%) (Auto) 0 % (0-3) Neutrophils # (Auto) 11.0 x10^3/uL (1.8-7.7) Lymphocytes # (Auto) 0.5 x10^3/uL (1.0-4.8) Monocytes # (Auto) 0.4 x10^3/uL (0.0-1.1) Eosinophils # (Auto) 0.0 x10^3/uL (0.0-0.7) Basophils # (Auto) 0.0 x10^3/uL (0.0-0.2) Sodium Level 138 mmol/L (136-145) Potassium Level 4.6 mmol/L (3.5-5.1) Chloride Level 100 mmol/L (98-107) Carbon Dioxide Level 28 mmol/L (21-32) Anion Gap 10 (6-14) Blood Urea Nitrogen 53 mg/dL (7-20) Creatinine 3.9 mg/dL (0.6-1.0) Estimated GFR (Cockcroft-Gault) 11.0 Glucose Level 173 mg/dL (70-99) Calcium Level 8.0 mg/dL (8.5-10.1) Assessment and Plan Assessmemt and Plan Problems Medical Problems: (1) Acute dyspnea Status: Acute (2) ESRD (end stage renal disease) on dialysis Status: Acute (3) Suspected 2019 novel coronavirus infection Status: Acute * 0 Pain Scale Type * Descriptive Transfer Assistance Required * Contact Guard Assist Transfer Type * Stand-Step Transfer Assistive Device * Roller Walker Ambulation Assistance Required * Contact Guard Assist Ambulation Assistive Device * Roller Walker Ambulation Distance * 20 Ft x2 Ambulation Comments * no loss of balance. will try cane Problem List (body system elements) * Impaired fnctnl mobility * Respiration/perfusion Clinical Presentation * Stable Evaluation Complexity Level * Low Complexity Pt/caregiver agrees with plan of care/goals * Yes Patient condition at conclusion of therapy * Pt in chair * Call light in reach * Phone in reach * PtIn no apparent distress * Pt denies further needs Goal 1 - Bed Mobility Assistance Required * Independent Goal 2 - Transfers Assistance Required * Independent Goal 3 - Ambulation Assistance Required * Independent Goal 3 - Ambulation Distance * 100' Goal 3 - Ambulation Device * Cane Treatment Plan * Therapeutic Exercise * Bed Mobility Training * Transfer training * Gait Training * Dynamic Balance Training Frequency of Treatment Expected * 6 visits/week Duration of Treatment Expected * 2 weeks Discharge Recommendations * Home with Assistance Discharge Recommendation - DME * Rolling Walker needed * in order to complete ADLs * and ambulation safely Comment Review of Relevant I have reviewed the following items thong (where applicable) has been applied. Labs Laboratory Tests Test 07/10/20 03:35 07/11/20 04:35 White Blood Count 13.8 x10^3/uL (4.0-11.0) 11.9 x10^3/uL (4.0-11.0) Red Blood Count 3.24 x10^6/uL (3.50-5.40) 3.24 x10^6/uL (3.50-5.40) Hemoglobin 10.6 g/dL (12.0-15.5) 10.7 g/dL (12.0-15.5) Hematocrit 32.2 % (36.0-47.0) 31.9 % (36.0-47.0) Mean Corpuscular Volume 99 fL (79-100) 99 fL (79-100) Mean Corpuscular Hemoglobin 33 pg (25-35) 33 pg (25-35) Mean Corpuscular Hemoglobin Concent 33 g/dL (31-37) 34 g/dL (31-37) Red Cell Distribution Width 14.7 % (11.5-14.5) 15.0 % (11.5-14.5) Platelet Count 313 x10^3/uL (140-400) 338 x10^3/uL (140-400) Neutrophils (%) (Auto) 91 % (31-73) 92 % (31-73) Lymphocytes (%) (Auto) 4 % (24-48) 4 % (24-48) Monocytes (%) (Auto) 6 % (0-9) 3 % (0-9) Eosinophils (%) (Auto) 0 % (0-3) 0 % (0-3) Basophils (%) (Auto) 0 % (0-3) 0 % (0-3) Neutrophils # (Auto) 12.5 x10^3/uL (1.8-7.7) 11.0 x10^3/uL (1.8-7.7) Lymphocytes # (Auto) 0.5 x10^3/uL (1.0-4.8) 0.5 x10^3/uL (1.0-4.8) Monocytes # (Auto) 0.8 x10^3/uL (0.0-1.1) 0.4 x10^3/uL (0.0-1.1) Eosinophils # (Auto) 0.0 x10^3/uL (0.0-0.7) 0.0 x10^3/uL (0.0-0.7) Basophils # (Auto) 0.0 x10^3/uL (0.0-0.2) 0.0 x10^3/uL (0.0-0.2) Sodium Level 137 mmol/L (136-145) 138 mmol/L (136-145) Potassium Level 5.9 mmol/L (3.5-5.1) 4.6 mmol/L (3.5-5.1) Chloride Level 99 mmol/L (98-107) 100 mmol/L (98-107) Carbon Dioxide Level 23 mmol/L (21-32) 28 mmol/L (21-32) Anion Gap 15 (6-14) 10 (6-14) Blood Urea Nitrogen 127 mg/dL (7-20) 53 mg/dL (7-20) Creatinine 7.3 mg/dL (0.6-1.0) 3.9 mg/dL (0.6-1.0) Estimated GFR (Cockcroft-Gault) 5.3 11.0 Glucose Level 145 mg/dL (70-99) 173 mg/dL (70-99) Calcium Level 9.0 mg/dL (8.5-10.1) 8.0 mg/dL (8.5-10.1) Laboratory Tests Test 07/11/20 04:35 White Blood Count 11.9 x10^3/uL (4.0-11.0) Red Blood Count 3.24 x10^6/uL (3.50-5.40) Hemoglobin 10.7 g/dL (12.0-15.5) Hematocrit 31.9 % (36.0-47.0) Mean Corpuscular Volume 99 fL (79-100) Mean Corpuscular Hemoglobin 33 pg (25-35) Mean Corpuscular Hemoglobin Concent 34 g/dL (31-37) Red Cell Distribution Width 15.0 % (11.5-14.5) Platelet Count 338 x10^3/uL (140-400) Neutrophils (%) (Auto) 92 % (31-73) Lymphocytes (%) (Auto) 4 % (24-48) Monocytes (%) (Auto) 3 % (0-9) Eosinophils (%) (Auto) 0 % (0-3) Basophils (%) (Auto) 0 % (0-3) Neutrophils # (Auto) 11.0 x10^3/uL (1.8-7.7) Lymphocytes # (Auto) 0.5 x10^3/uL (1.0-4.8) Monocytes # (Auto) 0.4 x10^3/uL (0.0-1.1) Eosinophils # (Auto) 0.0 x10^3/uL (0.0-0.7) Basophils # (Auto) 0.0 x10^3/uL (0.0-0.2) Sodium Level 138 mmol/L (136-145) Potassium Level 4.6 mmol/L (3.5-5.1) Chloride Level 100 mmol/L (98-107) Carbon Dioxide Level 28 mmol/L (21-32) Anion Gap 10 (6-14) Blood Urea Nitrogen 53 mg/dL (7-20) Creatinine 3.9 mg/dL (0.6-1.0) Estimated GFR (Cockcroft-Gault) 11.0 Glucose Level 173 mg/dL (70-99) Calcium Level 8.0 mg/dL (8.5-10.1) Microbiology 07/06/20 Blood Culture - Preliminary, Resulted NO GROWTH AFTER 4 DAYS Medications Current Medications Methylprednisolone Sodium Succinate (SOLU-Medrol 40MG VIAL) 40 mg BID IV Last administered on 07/11/20 09:27; Start 07/06/20 at 16:00; Stop 07/16/20 at 15:59 Ascorbic Acid (Vitamin C) 500 mg Q6HRS PO Last administered on 07/11/20at 06:13; Start 07/06/20 at 18:00 Zinc Sulfate (Orazinc) 220 mg DAILY PO Last administered on 07/11/20 09:27; Start 07/06/20 at 17:00 Vitamin D (Vitamin D3) 5,000 unit DAILY PO Last administered on 07/11/20at 09:27; Start 07/06/20 at 16:00 Ondansetron HCl (Zofran) 4 mg PRN Q6HRS PRN IVP NAUSEA/VOMITING; Start 07/06/20 at 16:15 Famotidine (Pepcid Vial) 20 mg Q48H IVP Last administered on 07/09/20at 00:36; Start 07/06/20 at 21:00; Stop 07/09/20 at 13:55; Status DC Enoxaparin Sodium (Lovenox 30mg Syringe) 30 mg Q24H SQ Last administered on 07/08/20at 18:46; Start 07/06/20 at 17:00; Stop 07/09/20 at 13:52; Status DC Sodium Chloride (Normal Saline Flush) 3 ml QSHIFT PRN IV AFTER MEDS AND BLOOD DRAWS; Start 07/06/20 at 16:15 Acetaminophen (Tylenol) 650 mg PRN Q6HRS PRN PO MILD PAIN / TEMP > 100.3'F; Start 07/06/20 at 20:00 Vitamin B Complex/ Vitamin C (Citlali-Pavel) 1 tab DAILY PO Last administered on 09:26; Start 07/07/20 at 09:00 Acetaminophen/ Hydrocodone Bitart (Lortab 5/325) 1 tab PRN Q4HRS PRN PO MODERATE-SEVERE PAIN; Start 07/06/20 at 20:00 Pantoprazole Sodium (Protonix) 40 mg DAILYAC PO Last administered on 07/11/20 09:27; Start 07/07/20 at 07:30 Polyethylene Glycol (miraLAX PACKET) 17 gm DAILY PO Last administered on 07/11/20 09:27; Start 07/07/20 at 09:00 Calcium Acetate (Phoslo) 1,334 mg TIDWMEALS PO Last administered on 07/11/20 09:26; Start 07/07/20 at 08:00 Piperacillin Sod/ Tazobactam Sod (Zosyn Per Pharmacy) 1 each PRN DAILY PRN MC SEE COMMENTS; Start 07/07/20 at 10:45 Piperacillin Sod/ Tazobactam Sod 2.25 gm/Sodium Chloride 50 ml @ 100 mls/hr Q6HRS IV ; Start 07/07/20 at 11:00; Status Cancel Piperacillin Sod/ Tazobactam Sod 2.25 gm/Sodium Chloride 50 ml @ 100 mls/hr Q8HRS IV Last administered on 07/11/20at 06:12; Start 07/07/20 at 11:30 Lactobacillus Rhamnosus (Culturelle) 1 cap BID PO Last administered on 07/11/20at 09:27; Start 07/07/20 at 12:00 Sodium Chloride 1,000 ml @ 1,000 mls/hr Q1H PRN IV hypotension; Start 07/07/20 at 17:00; Stop 07/07/20 at 22:59; Status DC Albumin Human 200 ml @ 200 mls/hr 1X PRN PRN IV Hypotension; Start 07/07/20 at 17:00; Stop 07/07/20 at 22:59; Status DC Sodium Chloride 1,000 ml @ 400 mls/hr Q2H30M PRN IV PATENCY; Start 07/07/20 at 17:00; Stop 07/08/20 at 04:59; Status DC Info (PHARMACY MONITORING -- do not chart) 1 each PRN DAILY PRN MC SEE COMMENTS; Start 07/07/20 at 18:15; Stop 07/08/20 at 15:54; Status DC Info (PHARMACY MONITORING -- do not chart) 1 each PRN DAILY PRN MC SEE COMMENTS; Start 07/07/20 at 18:15; Stop 07/10/20 at 19:07; Status DC Hydralazine HCl (Apresoline Inj) 10 mg PRN Q4HRS PRN IVP ELEVATED BP, SEE COMMENTS Last administered on 07/09/20at 08:39; Start 07/09/20 at 08:15 Heparin Sodium (Porcine) (Heparin Sodium) 5,000 unit Q8HRS SQ Last administered on 07/11/20at 06:13; Start 07/09/20 at 22:00 Famotidine (Pepcid) 20 mg Q48H PO Last administered on 07/10/20at 21:55; Start 07/10/20 at 21:00 Sodium Chloride 1,000 ml @ 1,000 mls/hr Q1H PRN IV hypotension; Start 07/10/20 at 15:40; Stop 07/10/20 at 21:39; Status DC Albumin Human 200 ml @ 200 mls/hr 1X PRN PRN IV Hypotension; Start 07/10/20 at 15:45; Stop 07/10/20 at 21:44; Status DC Diphenhydramine HCl (Benadryl) 25 mg 1X PRN PRN IV ITCHING; Start 07/10/20 at 15:45; Stop 07/11/20 at 15:44 Diphenhydramine HCl (Benadryl) 25 mg 1X PRN PRN IV ITCHING; Start 07/10/20 at 15:45; Stop 07/11/20 at 15:44 Sodium Chloride (Normal Saline Flush) 10 ml 1X PRN PRN IV AP catheter pack; Start 07/10/20 at 15:45; Stop 07/11/20 at 15:44 Sodium Chloride (Normal Saline Flush) 10 ml 1X PRN PRN IV [employer] catheter pack; Start 07/10/20 at 15:45; Stop 07/11/20 at 15:44 Sodium Chloride 1,000 ml @ 400 mls/hr Q2H30M PRN IV PATENCY; Start 07/10/20 at 15:40; Stop 07/11/20 at 03:39; Status DC Info (PHARMACY MONITORING -- do not chart) 1 each PRN DAILY PRN MC SEE COMMENTS; Start 07/10/20 at 15:45 Dextrose (Dextrose 50%-Water Syringe) 12.5 gm PRN Q15MIN PRN IV SEE COMMENTS; Start 07/10/20 at 19:00 Active Scripts Active Hydrocodone-Apap 5-325 (Hydrocodone Bit/Acetaminophen) 1 Each Tablet 1 Tab PO PRN Q4HRS PRN Children's Aspirin (Aspirin) 81 Mg Tab.chew 81 Mg PO DAILYWBKFT Reported Proair Hfa Inhaler (Albuterol Sulfate) 8.5 Gm Hfa.aer.ad 2 Puff INH PRN Q4HRS PRN Ativan (Lorazepam) 0.5 Mg Tablet 0.5 Mg PO PRN BID PRN Pantoprazole Sodium 40 Mg Tablet.dr 40 Mg PO BIDAC Estradiol 42.5 Gm Cream.appl 1 Jeyson VAG DAILY Vitals/I & O Vital Sign - Last 24 Hours 07/10/20 07/10/20 07/10/20 07/10/20 11:00 15:00 19:54 19:54 Temp 97.6 97.6 96.6 97.6 97.6 96.6 Pulse 58 56 70 Resp 20 22 24 B/P (MAP) 134/63 (86) 164/71 (102) 127/60 (82) Pulse Ox 94 94 93 O2 Delivery Nasal Cannula Nasal Cannula Nasal Cannula Nasal Cannula O2 Flow Rate 2.0 2.0 2.0 2.0 07/10/20 07/11/20 07/11/20 23:00 03:00 07:00 Temp 96.2 96.6 97.6 96.2 96.6 97.6 Pulse 65 60 56 Resp 20 18 22 B/P (MAP) 134/63 (86) 152/67 (95) 154/65 (94) Pulse Ox 93 99 97 O2 Delivery Nasal Cannula Room Air O2 Flow Rate 2.0 Intake and Output 07/10/20 07/10/20 07/11/20 15:00 23:00 07:00 Intake Total 240 ml Balance 240 ml Nutrition Consultation Dietary Evaluation: Recommendations by RD: Dietary education by RD, Increase Calorie Intake, Protein supplementation Comments: Continue w/renal diet as ordered REC nepro q day or more often per pt preference Expected Outcomes/Goals: PO intake to meet >75% est needs Malnutrition Findings: Body Fat Depletion (Non Severe: Mild Depletion Weight Status: Appropriate Justicifation of Admission Dx: Justifications for Admission: Justification of Admission Dx: Yes Chronic Renal Failure: Hemodynamic Instability FELICITA KHAN MD Jul 11, 2020 10:04
--- NOTE | 2020-07-11 10:25 | PDOC ---
PULMONARY PROGRESS NOTES DATE: 07/11/20 TIME: 10:25 Subjective Patient now more short of air no chest pain no pressure on 2 L of oxygen Vitals Vital Signs Date Time Temp Pulse Resp B/P (MAP) Pulse Ox O2 Delivery O2 Flow Rate FiO2 07/11/20 07:00 97.6 56 22 154/65 (94) 97 Room Air 97.6 07/10/20 23:00 2.0 Comments alert appears comfortable nc at 2 liters rrr no paradoxical abd motion no accessory muscle use no rash Lungs: Crackles Cardiovascular: S1, S2 Labs Laboratory Tests Test 07/10/20 03:35 07/11/20 04:35 White Blood Count 13.8 x10^3/uL (4.0-11.0) 11.9 x10^3/uL (4.0-11.0) Red Blood Count 3.24 x10^6/uL (3.50-5.40) 3.24 x10^6/uL (3.50-5.40) Hemoglobin 10.6 g/dL (12.0-15.5) 10.7 g/dL (12.0-15.5) Hematocrit 32.2 % (36.0-47.0) 31.9 % (36.0-47.0) Mean Corpuscular Volume 99 fL (79-100) 99 fL (79-100) Mean Corpuscular Hemoglobin 33 pg (25-35) 33 pg (25-35) Mean Corpuscular Hemoglobin Concent 33 g/dL (31-37) 34 g/dL (31-37) Red Cell Distribution Width 14.7 % (11.5-14.5) 15.0 % (11.5-14.5) Platelet Count 313 x10^3/uL (140-400) 338 x10^3/uL (140-400) Neutrophils (%) (Auto) 91 % (31-73) 92 % (31-73) Lymphocytes (%) (Auto) 4 % (24-48) 4 % (24-48) Monocytes (%) (Auto) 6 % (0-9) 3 % (0-9) Eosinophils (%) (Auto) 0 % (0-3) 0 % (0-3) Basophils (%) (Auto) 0 % (0-3) 0 % (0-3) Neutrophils # (Auto) 12.5 x10^3/uL (1.8-7.7) 11.0 x10^3/uL (1.8-7.7) Lymphocytes # (Auto) 0.5 x10^3/uL (1.0-4.8) 0.5 x10^3/uL (1.0-4.8) Monocytes # (Auto) 0.8 x10^3/uL (0.0-1.1) 0.4 x10^3/uL (0.0-1.1) Eosinophils # (Auto) 0.0 x10^3/uL (0.0-0.7) 0.0 x10^3/uL (0.0-0.7) Basophils # (Auto) 0.0 x10^3/uL (0.0-0.2) 0.0 x10^3/uL (0.0-0.2) Sodium Level 137 mmol/L (136-145) 138 mmol/L (136-145) Potassium Level 5.9 mmol/L (3.5-5.1) 4.6 mmol/L (3.5-5.1) Chloride Level 99 mmol/L (98-107) 100 mmol/L (98-107) Carbon Dioxide Level 23 mmol/L (21-32) 28 mmol/L (21-32) Anion Gap 15 (6-14) 10 (6-14) Blood Urea Nitrogen 127 mg/dL (7-20) 53 mg/dL (7-20) Creatinine 7.3 mg/dL (0.6-1.0) 3.9 mg/dL (0.6-1.0) Estimated GFR (Cockcroft-Gault) 5.3 11.0 Glucose Level 145 mg/dL (70-99) 173 mg/dL (70-99) Calcium Level 9.0 mg/dL (8.5-10.1) 8.0 mg/dL (8.5-10.1) Laboratory Tests Test 07/11/20 04:35 White Blood Count 11.9 x10^3/uL (4.0-11.0) Red Blood Count 3.24 x10^6/uL (3.50-5.40) Hemoglobin 10.7 g/dL (12.0-15.5) Hematocrit 31.9 % (36.0-47.0) Mean Corpuscular Volume 99 fL (79-100) Mean Corpuscular Hemoglobin 33 pg (25-35) Mean Corpuscular Hemoglobin Concent 34 g/dL (31-37) Red Cell Distribution Width 15.0 % (11.5-14.5) Platelet Count 338 x10^3/uL (140-400) Neutrophils (%) (Auto) 92 % (31-73) Lymphocytes (%) (Auto) 4 % (24-48) Monocytes (%) (Auto) 3 % (0-9) Eosinophils (%) (Auto) 0 % (0-3) Basophils (%) (Auto) 0 % (0-3) Neutrophils # (Auto) 11.0 x10^3/uL (1.8-7.7) Lymphocytes # (Auto) 0.5 x10^3/uL (1.0-4.8) Monocytes # (Auto) 0.4 x10^3/uL (0.0-1.1) Eosinophils # (Auto) 0.0 x10^3/uL (0.0-0.7) Basophils # (Auto) 0.0 x10^3/uL (0.0-0.2) Sodium Level 138 mmol/L (136-145) Potassium Level 4.6 mmol/L (3.5-5.1) Chloride Level 100 mmol/L (98-107) Carbon Dioxide Level 28 mmol/L (21-32) Anion Gap 10 (6-14) Blood Urea Nitrogen 53 mg/dL (7-20) Creatinine 3.9 mg/dL (0.6-1.0) Estimated GFR (Cockcroft-Gault) 11.0 Glucose Level 173 mg/dL (70-99) Calcium Level 8.0 mg/dL (8.5-10.1) Medications Active Scripts Medications Dose Route/Sig Max Daily Dose Days Date Category Proair Hfa Inhaler (Albuterol Sulfate) 8.5 Gm Hfa.aer.ad 2 Puff INH PRN Q4HRS PRN 07/06/20 Reported Ativan (Lorazepam) 0.5 Mg Tablet 0.5 Mg PO PRN BID PRN 07/06/20 Reported Pantoprazole Sodium 40 Mg Tablet.dr 40 Mg PO BIDAC 07/06/20 Reported Estradiol 42.5 Gm Cream.appl 1 Jeyson VAG DAILY 07/06/20 Reported Hydrocodone-Apap 5-325 (Hydrocodone Bit/Acetaminophen) 1 Each Tablet 1 Tab PO PRN Q4HRS PRN 12/09/16 Rx Children's Aspirin (Aspirin) 81 Mg Tab.chew 81 Mg PO DAILYWBKFT 12/09/16 Rx Comments CXR IMPRESSION: Chronic interstitial changes are identified with superimposed increased interstitial airspace disease in the upper lobes suggestive of multifocal pulmonary infiltrates. Recommend short-term follow-up two-view chest radiograph. Interstitial edema may have similar appearance. Impression . IMPRESSION: 1. Acute hypoxic respiratory failure secondary to COVID-19 pneumonia. Other possible differential diagnosis would be acute congestive heart failure. 2. Abnormal chest x-ray with worsening interstitial infiltrates. COVID-19 pneumonia versus congestive heart failure. 3. End-stage renal disease, on hemodialysis. 4. Increased procalcitonin level. 5. Abnormal D-dimer, which can be nonspecific. covid + , Clinically, low suspicion for thromboembolic disease. Plan . Continue nasal cannula oxygen Antibiotic Steroid Follow nephrology input YEIMI DIGGS MD Jul 11, 2020 10:25
[2020-07-11 11:05] VITALS: BP 141/64
--- NOTE | 2020-07-11 11:45 | NUR ---
Wound Care: Patient is covid+, therefore wound care assessed picture assessment only. Recommendations for xeroform gauze and foam dressing change on Friday and Friday and wound care will reassess on 07/18/20. Spoke with RN regarding POC. Dressing change instructions left with YOANDY Carrera.
[2020-07-11 15:05] VITALS: BP 134/61
--- NOTE | 2020-07-11 16:04 | PDOC ---
Renal-Progress Notes Subjective Notes Notes LESS SOB History of Present Illness Hx of present illness STABLE Vitals Vitals Vital Signs Date Time Temp Pulse Resp B/P (MAP) Pulse Ox O2 Delivery O2 Flow Rate FiO2 07/11/20 15:05 95.0 96 20 134/61 (85) 97 Room Air 95.0 07/11/20 08:00 3.0 Weight Weight [ ] I.O. Intake and Output Intake and Output 07/11/20 07:00 Intake Total 240 ml Balance 240 ml Intake Oral 240 ml # Voids 2 # Bowel Movements 2 Labs Labs Laboratory Tests Test 07/11/20 04:35 White Blood Count 11.9 x10^3/uL (4.0-11.0) Red Blood Count 3.24 x10^6/uL (3.50-5.40) Hemoglobin 10.7 g/dL (12.0-15.5) Hematocrit 31.9 % (36.0-47.0) Mean Corpuscular Volume 99 fL (79-100) Mean Corpuscular Hemoglobin 33 pg (25-35) Mean Corpuscular Hemoglobin Concent 34 g/dL (31-37) Red Cell Distribution Width 15.0 % (11.5-14.5) Platelet Count 338 x10^3/uL (140-400) Neutrophils (%) (Auto) 92 % (31-73) Lymphocytes (%) (Auto) 4 % (24-48) Monocytes (%) (Auto) 3 % (0-9) Eosinophils (%) (Auto) 0 % (0-3) Basophils (%) (Auto) 0 % (0-3) Neutrophils # (Auto) 11.0 x10^3/uL (1.8-7.7) Lymphocytes # (Auto) 0.5 x10^3/uL (1.0-4.8) Monocytes # (Auto) 0.4 x10^3/uL (0.0-1.1) Eosinophils # (Auto) 0.0 x10^3/uL (0.0-0.7) Basophils # (Auto) 0.0 x10^3/uL (0.0-0.2) Sodium Level 138 mmol/L (136-145) Potassium Level 4.6 mmol/L (3.5-5.1) Chloride Level 100 mmol/L (98-107) Carbon Dioxide Level 28 mmol/L (21-32) Anion Gap 10 (6-14) Blood Urea Nitrogen 53 mg/dL (7-20) Creatinine 3.9 mg/dL (0.6-1.0) Estimated GFR (Cockcroft-Gault) 11.0 Glucose Level 173 mg/dL (70-99) Calcium Level 8.0 mg/dL (8.5-10.1) Micro Micro Microbiology 07/06/20 Blood Culture - Preliminary, Resulted NO GROWTH AFTER 4 DAYS Review of Systems Constitutional: yes: weakness, alert, oriented Ears/Nose/Throat: Yes: no symptom reported Eyes: Yes: no symptom reported Pulmonary: Yes dyspnea Cardiovascular: Yes no symptom reported Gastrointestional: Yes: no symptom reported Musculoskeletal: Yes: no symptom reported Skin: Yes no symptom reported Psychiatric/Neurological: Yes: no symptom reported Endocrine: Yes: no symptom reported Physical Exam General Appearance: no apparent distress, afebrile Skin: warm Respiratory: bilateral CTA Heart: S1S2 Abdomen: soft, bowel sounds present Extremities: pulses present Neurology: alert Musculoskeletal: Other Assessment Assessment IMP ESRD ACUTE RESP FAILURE ACUTE D CHF ANEMIA PLAN HD TOMORROW SYLVIE NEEDED ENC FLUID RESTRICTIONS ANTHONY VILA MD Jul 11, 2020 16:04
--- NOTE | 2020-07-11 17:59 | NUR ---
SW following. Spoke with RN and reviewed chart. Pt COVID positive and on 3l 02. Pt on IV Zosyn. Pt lives with family. LVM for granddaughter as she speaks Scottish per RN. Pt is [place] speaking. Pt has Medicare/Medicaid. PT evaluation says home with assistance. SW waiting to hear from family as to whether or no HH is wanted at discharge. SW following.
[2020-07-11 19:00] VITALS: BP 127/60
[2020-07-11] MEDS: LORazepam 0.5 MG TABLET PO PRN (21:32)
[2020-07-11 23:00] VITALS: BP 105/67
[2020-07-12 03:00] VITALS: BP 133/64
[2020-07-12] MEDS: PIPERACILLIN/TAZOBACTAM 2.25 GM in IV NORMAL SALINE 50ML 50 ML IV SCH ×3 (05:59→21:58)
[2020-07-12] MEDS: ASCORBIC ACID 500 MG TABLET PO SCH ×4 (05:59→23:51)
[2020-07-12] MEDS: HEPARIN for SUB-Q USE 5,000 UNIT/ML VIAL. SQ SCH ×3 (06:00→22:30)
[2020-07-12 07:00] VITALS: BP 176/77
[2020-07-12] MEDS: CHOLECALCIFEROL (VITAMIN D3) 5,000 UNIT CAPSULE PO SCH (08:15)
[2020-07-12] MEDS: ZINC SULFATE 220 MG CAPSULE. PO SCH (08:15)
[2020-07-12] MEDS: FOLIC/VIT B COMP W-C (RENAL) TABLET. PO SCH (08:15)
[2020-07-12] MEDS: CALCIUM ACETATE 667 MG CAPSULE PO SCH ×3 (08:15→17:00)
[2020-07-12] MEDS: PANTOPRAZOLE 40 MG TABLET.DR. PO SCH (08:15)
[2020-07-12] MEDS: POLYETHYLENE GLYCOL 3350 17 GM PACKET. PO SCH (08:15)
[2020-07-12] MEDS: LACTOBACILLUS RHAMNOSUS GG 1 CAPSULE. PO SCH ×2 (08:18→21:57)
[2020-07-12] MEDS: methylPREDNISolone SOD SUCC PF 40 MG/ML VIAL. IV SCH ×2 (08:18→21:56)
--- NOTE | 2020-07-12 08:45 | PDOC ---
PULMONARY PROGRESS NOTES DATE: 07/12/20 TIME: 08:45 Subjective Patient now more short of air no chest pain no pressure on 2 L of oxygen Vitals Vital Signs Date Time Temp Pulse Resp B/P (MAP) Pulse Ox O2 Delivery O2 Flow Rate FiO2 07/12/20 03:00 97.9 82 18 133/64 (87) 94 Nasal Cannula 3.0 97.9 Comments alert appears comfortable nc at 2 liters rrr no paradoxical abd motion no accessory muscle use no rash Lungs: Crackles Cardiovascular: S1, S2 Labs Laboratory Tests Test 07/11/20 04:35 White Blood Count 11.9 x10^3/uL (4.0-11.0) Red Blood Count 3.24 x10^6/uL (3.50-5.40) Hemoglobin 10.7 g/dL (12.0-15.5) Hematocrit 31.9 % (36.0-47.0) Mean Corpuscular Volume 99 fL (79-100) Mean Corpuscular Hemoglobin 33 pg (25-35) Mean Corpuscular Hemoglobin Concent 34 g/dL (31-37) Red Cell Distribution Width 15.0 % (11.5-14.5) Platelet Count 338 x10^3/uL (140-400) Neutrophils (%) (Auto) 92 % (31-73) Lymphocytes (%) (Auto) 4 % (24-48) Monocytes (%) (Auto) 3 % (0-9) Eosinophils (%) (Auto) 0 % (0-3) Basophils (%) (Auto) 0 % (0-3) Neutrophils # (Auto) 11.0 x10^3/uL (1.8-7.7) Lymphocytes # (Auto) 0.5 x10^3/uL (1.0-4.8) Monocytes # (Auto) 0.4 x10^3/uL (0.0-1.1) Eosinophils # (Auto) 0.0 x10^3/uL (0.0-0.7) Basophils # (Auto) 0.0 x10^3/uL (0.0-0.2) Sodium Level 138 mmol/L (136-145) Potassium Level 4.6 mmol/L (3.5-5.1) Chloride Level 100 mmol/L (98-107) Carbon Dioxide Level 28 mmol/L (21-32) Anion Gap 10 (6-14) Blood Urea Nitrogen 53 mg/dL (7-20) Creatinine 3.9 mg/dL (0.6-1.0) Estimated GFR (Cockcroft-Gault) 11.0 Glucose Level 173 mg/dL (70-99) Calcium Level 8.0 mg/dL (8.5-10.1) Medications Active Scripts Medications Dose Route/Sig Max Daily Dose Days Date Category Proair Hfa Inhaler (Albuterol Sulfate) 8.5 Gm Hfa.aer.ad 2 Puff INH PRN Q4HRS PRN 07/06/20 Reported Ativan (Lorazepam) 0.5 Mg Tablet 0.5 Mg PO PRN BID PRN 07/06/20 Reported Pantoprazole Sodium 40 Mg Tablet.dr 40 Mg PO BIDAC 07/06/20 Reported Estradiol 42.5 Gm Cream.appl 1 Jeyson VAG DAILY 07/06/20 Reported Hydrocodone-Apap 5-325 (Hydrocodone Bit/Acetaminophen) 1 Each Tablet 1 Tab PO PRN Q4HRS PRN 12/09/16 Rx Children's Aspirin (Aspirin) 81 Mg Tab.chew 81 Mg PO DAILYWBKFT 12/09/16 Rx Comments CXR IMPRESSION: Chronic interstitial changes are identified with superimposed increased interstitial airspace disease in the upper lobes suggestive of multifocal pulmonary infiltrates. Recommend short-term follow-up two-view chest radiograph. Interstitial edema may have similar appearance. Impression . IMPRESSION: 1. Acute hypoxic respiratory failure secondary to COVID-19 pneumonia. Other possible differential diagnosis would be acute congestive heart failure. 2. Abnormal chest x-ray with worsening interstitial infiltrates. COVID-19 pneumonia versus congestive heart failure. 3. End-stage renal disease, on hemodialysis. 4. Increased procalcitonin level. 5. Abnormal D-dimer, which can be nonspecific. covid + , Clinically, low suspicion for thromboembolic disease. Plan . Hemodialysis today Continue nasal cannula oxygen Antibiotic Steroid Follow nephrology input YEIMI DIGGS MD Jul 12, 2020 08:45
[2020-07-12] MEDS ORDERED: IV NORMAL SALINE 1000ML BAG 1,000 ML IV PRN ×2 (09:34)
[2020-07-12] MEDS ORDERED: DIALYSIS PATIENT. MC PRN ×2 (09:45)
[2020-07-12] MEDS ORDERED: ALBUMIN HUMAN 25% 200 ML IV PRN (09:45)
--- NOTE | 2020-07-12 10:43 | PDOC ---
PROGRESS NOTES Date of Service: DATE: 07/12/20 TIME: 10:42 Chief Complaint Chief Complaint IMPRESSION COVID-19 Acute hypoxic respiratory failure End-stage renal disease on hemodialysis Osteoarthritis GERD Hypertension Anemia of chronic renal insufficiency Severe protein calorie malnutrition anxiety acute right superior pubic ramus fracture. 04/22 Confusion - likely some ICU delerium. Patient family note that she jokes frequently. //some underlying cognitive impairment 07/12 SLIGHTLY BETTER, fair appetite, on 2 liters NC PLAN O2 SUPPORT IV STEROIDS Hemodialysis 07/12 COMFORTABLE RESTING WATCHING TV D/W RN Problem List (body system elements) * Impaired fnctnl mobility * Respiration/perfusion History of Present Illness History of Present Illness Ms Shelton is an 85 yo F w/PMHx HTN, CKD on hemodialysis brought into the hospital with worsening shortness of breath for the last 2 weeks. She has a cough with some productive sputum. She was seen in the urgent care and was noted to have a temperature of 100 degrees Fahrenheit. Her saturations were 90% on 4 liters nasal cannula. CXR with worsening interstitial infiltrates, COVID 19 test returned positive. 07/07: Patient seen and examined in the [place] [id number] ICU 07/08: Patient seen and [place] [id number] isolation unit. Afebrile on 4 L nasal cannulated oxygen. Plan to utilize CR, bartender services to communicate with her. I informed her on 3 separate times during our conversation that she is positive for the coronavirus and within 2 to 3 minutes she asked me again when her test is going to come back. The bartender was frustrated.WBC slightly up today. Afebrile. WBC 13.9 increased again. K5.3. She feels improved, no complaints still on 4 L nasal cannula oxygen.. Vitals Vitals Vital Signs Date Time Temp Pulse Resp B/P (MAP) Pulse Ox O2 Delivery O2 Flow Rate FiO2 07/12/20 08:00 Nasal Cannula 2.0 07/12/20 07:00 97.6 64 20 176/77 (110) 95 97.6 Physical Exam Physical Exam RRSTING IN BED, CALM General: Alert, Cooperative, No acute distress Heart: Regular rate Lungs: Crackles Abdomen: Normal bowel sounds, Soft, No tenderness Extremities: No clubbing, No cyanosis, No edema Skin: No rashes, No significant lesion Labs LABS SPEC #: [id number] LARISSA: 07/06/20 STATUS: COMP REQ #: [id number] RECD: 07/06/[address]: JARROD MASSEY DO SOURCE: BLOOD ENTR: 07/06/[address]: RADHA REY [facility]: ORDERED: BCULT Procedure Result BLOOD CULTURE Final NO GROWTH AFTER 5 DAYS Assessment and Plan Assessmemt and Plan Problems Medical Problems: (1) Acute dyspnea Status: Acute (2) ESRD (end stage renal disease) on dialysis Status: Acute (3) Suspected 2019 novel coronavirus infection Status: Acute mbulation Assistive Device * Roller Walker Ambulation Distance * 20 Ft x2 Ambulation Comments * no loss of balance. will try cane Problem List (body system elements) * Impaired fnctnl mobility * Respiration/perfusion Clinical Presentation * Stable Evaluation Complexity Level * Low Complexity Pt/caregiver agrees with plan of care/goals * Yes Patient condition at conclusion of therapy * Pt in chair * Call light in reach * Phone in reach * PtIn no apparent distress * Pt denies further needs Goal 1 - Bed Mobility Assistance Required * Independent Goal 2 - Transfers Assistance Required * Independent Goal 3 - Ambulation Assistance Required * Independent Goal 3 - Ambulation Distance * 100' Goal 3 - Ambulation Device * Cane Treatment Plan * Therapeutic Exercise * Bed Mobility Training * Transfer training * Gait Training * Dynamic Balance Training Frequency of Treatment Expected * 6 visits/week Duration of Treatment Expected * 2 weeks Discharge Recommendations * Home with Assistance Discharge Recommendation - DME * Rolling Walker needed * in order to complete ADLs * and ambulation safely Comment Review of Relevant I have reviewed the following items thong (where applicable) has been applied. Labs Laboratory Tests Test 07/11/20 04:35 White Blood Count 11.9 x10^3/uL (4.0-11.0) Red Blood Count 3.24 x10^6/uL (3.50-5.40) Hemoglobin 10.7 g/dL (12.0-15.5) Hematocrit 31.9 % (36.0-47.0) Mean Corpuscular Volume 99 fL (79-100) Mean Corpuscular Hemoglobin 33 pg (25-35) Mean Corpuscular Hemoglobin Concent 34 g/dL (31-37) Red Cell Distribution Width 15.0 % (11.5-14.5) Platelet Count 338 x10^3/uL (140-400) Neutrophils (%) (Auto) 92 % (31-73) Lymphocytes (%) (Auto) 4 % (24-48) Monocytes (%) (Auto) 3 % (0-9) Eosinophils (%) (Auto) 0 % (0-3) Basophils (%) (Auto) 0 % (0-3) Neutrophils # (Auto) 11.0 x10^3/uL (1.8-7.7) Lymphocytes # (Auto) 0.5 x10^3/uL (1.0-4.8) Monocytes # (Auto) 0.4 x10^3/uL (0.0-1.1) Eosinophils # (Auto) 0.0 x10^3/uL (0.0-0.7) Basophils # (Auto) 0.0 x10^3/uL (0.0-0.2) Sodium Level 138 mmol/L (136-145) Potassium Level 4.6 mmol/L (3.5-5.1) Chloride Level 100 mmol/L (98-107) Carbon Dioxide Level 28 mmol/L (21-32) Anion Gap 10 (6-14) Blood Urea Nitrogen 53 mg/dL (7-20) Creatinine 3.9 mg/dL (0.6-1.0) Estimated GFR (Cockcroft-Gault) 11.0 Glucose Level 173 mg/dL (70-99) Calcium Level 8.0 mg/dL (8.5-10.1) Microbiology 07/06/20 Blood Culture - Final, Complete NO GROWTH AFTER 5 DAYS Medications Current Medications Methylprednisolone Sodium Succinate (SOLU-Medrol 40MG VIAL) 40 mg BID IV Last administered on 07/12/20at 08:18; Start 07/06/20 at 16:00; Stop 07/16/20 at 15:59 Ascorbic Acid (Vitamin C) 500 mg Q6HRS PO Last administered on 07/12/20at 05:59; Start 07/06/20 at 18:00 Zinc Sulfate (Orazinc) 220 mg DAILY PO Last administered on 07/12/20at 08:15; Start 07/06/20 at 17:00 Vitamin D (Vitamin D3) 5,000 unit DAILY PO Last administered on 07/12/20at 08:15; Start 07/06/20 at 16:00 Ondansetron HCl (Zofran) 4 mg PRN Q6HRS PRN IVP NAUSEA/VOMITING; Start 07/06/20 at 16:15 Famotidine (Pepcid Vial) 20 mg Q48H IVP Last administered on 07/09/20at 00:36; Start 07/06/20 at 21:00; Stop 07/09/20 at 13:55; Status DC Enoxaparin Sodium (Lovenox 30mg Syringe) 30 mg Q24H SQ Last administered on 07/08/20at 18:46; Start 07/06/20 at 17:00; Stop 07/09/20 at 13:52; Status DC Sodium Chloride (Normal Saline Flush) 3 ml QSHIFT PRN IV AFTER MEDS AND BLOOD DRAWS; Start 07/06/20 at 16:15 Acetaminophen (Tylenol) 650 mg PRN Q6HRS PRN PO MILD PAIN / TEMP > 100.3'F; Start 07/06/20 at 20:00 Vitamin B Complex/ Vitamin C (Citlali-Pavel) 1 tab DAILY PO Last administered on 07/12/20at 08:15; Start 07/07/20 at 09:00 Acetaminophen/ Hydrocodone Bitart (Lortab 5/325) 1 tab PRN Q4HRS PRN PO MODERATE-SEVERE PAIN; Start 07/06/20 at 20:00 Pantoprazole Sodium (Protonix) 40 mg DAILYAC PO Last administered on 07/12/20at 08:15; Start 07/07/20 at 07:30 Polyethylene Glycol (miraLAX PACKET) 17 gm DAILY PO Last administered on 07/12/20at 08:15; Start 07/07/20 at 09:00 Calcium Acetate (Phoslo) 1,334 mg TIDWMEALS PO Last administered on 07/12/20at 08:15; Start 07/07/20 at 08:00 Piperacillin Sod/ Tazobactam Sod (Zosyn Per Pharmacy) 1 each PRN DAILY PRN MC SEE COMMENTS; Start 07/07/20 at 10:45 Piperacillin Sod/ Tazobactam Sod 2.25 gm/Sodium Chloride 50 ml @ 100 mls/hr Q6HRS IV ; Start 07/07/20 at 11:00; Status Cancel Piperacillin Sod/ Tazobactam Sod 2.25 gm/Sodium Chloride 50 ml @ 100 mls/hr Q8HRS IV Last administered on 07/12/20at 05:59; Start 07/07/20 at 11:30 Lactobacillus Rhamnosus (Culturelle) 1 cap BID PO Last administered on 07/12/20at 08:18; Start 07/07/20 at 12:00 Sodium Chloride 1,000 ml @ 1,000 mls/hr Q1H PRN IV hypotension; Start 07/07/20 at 17:00; Stop 07/07/20 at 22:59; Status DC Albumin Human 200 ml @ 200 mls/hr 1X PRN PRN IV Hypotension; Start 07/07/20 at 17:00; Stop 07/07/20 at 22:59; Status DC Sodium Chloride 1,000 ml @ 400 mls/hr Q2H30M PRN IV PATENCY; Start 07/07/20 at 17:00; Stop 07/08/20 at 04:59; Status DC Info (PHARMACY MONITORING -- do not chart) 1 each PRN DAILY PRN MC SEE COMMENTS; Start 07/07/20 at 18:15; Stop 07/08/20 at 15:54; Status DC Info (PHARMACY MONITORING -- do not chart) 1 each PRN DAILY PRN MC SEE COMMENTS; Start 07/07/20 at 18:15; Stop 07/10/20 at 19:07; Status DC Hydralazine HCl (Apresoline Inj) 10 mg PRN Q4HRS PRN IVP ELEVATED BP, SEE COMM ENTS Last administered on 07/09/20at 08:39; Start 07/09/20 at 08:15 Heparin Sodium (Porcine) (Heparin Sodium) 5,000 unit Q8HRS SQ Last administered on 07/12/20at 06:00; Start 07/09/20 at 22:00 Famotidine (Pepcid) 20 mg Q48H PO Last administered on 07/10/20at 21:55; Start 07/10/20 at 21:00 Sodium Chloride 1,000 ml @ 1,000 mls/hr Q1H PRN IV hypotension; Start 07/10/20 at 15:40; Stop 07/10/20 at 21:39; Status DC Albumin Human 200 ml @ 200 mls/hr 1X PRN PRN IV Hypotension; Start 07/10/20 at 15:45; Stop 07/10/20 at 21:44; Status DC Diphenhydramine HCl (Benadryl) 25 mg 1X PRN PRN IV ITCHING; Start 07/10/20 at 15:45; Stop 07/11/20 at 15:44; Status DC Diphenhydramine HCl (Benadryl) 25 mg 1X PRN PRN IV ITCHING; Start 07/10/20 at 15:45; Stop 07/11/20 at 15:44; Status DC Sodium Chloride (Normal Saline Flush) 10 ml 1X PRN PRN IV AP catheter pack; Start 07/10/20 at 15:45; Stop 07/11/20 at 15:44; Status DC Sodium Chloride (Normal Saline Flush) 10 ml 1X PRN PRN IV RADIOLOGY NURSE catheter pack; Start 07/10/20 at 15:45; Stop 07/11/20 at 15:44; Status DC Sodium Chloride 1,000 ml @ 400 mls/hr Q2H30M PRN IV PATENCY; Start 07/10/20 at 15:40; Stop 07/11/20 at 03:39; Status DC Info (PHARMACY MONITORING -- do not chart) 1 each PRN DAILY PRN MC SEE COMMENTS; Start 07/10/20 at 15:45 Dextrose (Dextrose 50%-Water Syringe) 12.5 gm PRN Q15MIN PRN IV SEE COMMENTS; Start 07/10/20 at 19:00 Lorazepam (Ativan) 0.5 mg PRN BID PRN PO ANXIETY / AGITATION Last administered on 07/11/20at 21:32; Start 07/11/20 at 17:00 Sodium Chloride 1,000 ml @ 1,000 mls/hr Q1H PRN IV hypotension; Start 07/12/20 at 09:34; Stop 07/12/20 at 15:33 Albumin Human 200 ml @ 200 mls/hr 1X PRN PRN IV Hypotension; Start 07/12/20 at 09:45; Stop 07/12/20 at 15:44 Sodium Chloride 1,000 ml @ 400 mls/hr Q2H30M PRN IV PATENCY; Start 07/12/20 at 09:34; Stop 07/12/20 at 21:33 Info (PHARMACY MONITORING -- do not chart) 1 each PRN DAILY PRN MC SEE COMMENTS; Start 07/12/20 at 09:45; Status UNV Info (PHARMACY MONITORING -- do not chart) 1 each PRN DAILY PRN MC SEE COMMENTS; Start 07/12/20 at 09:45 Active Scripts Active Hydrocodone-Apap 5-325 (Hydrocodone Bit/Acetaminophen) 1 Each Tablet 1 Tab PO PRN Q4HRS PRN Children's Aspirin (Aspirin) 81 Mg Tab.chew 81 Mg PO DAILYWBKFT Reported Proair Hfa Inhaler (Albuterol Sulfate) 8.5 Gm Hfa.aer.ad 2 Puff INH PRN Q4HRS PRN Ativan (Lorazepam) 0.5 Mg Tablet 0.5 Mg PO PRN BID PRN Pantoprazole Sodium 40 Mg Tablet.dr 40 Mg PO BIDAC Estradiol 42.5 Gm Cream.appl 1 Jeyson VAG DAILY Vitals/I & O Vital Sign - Last 24 Hours 07/11/20 07/11/20 07/11/20 07/11/20 11:05 15:05 19:00 20:00 Temp 95.0 98.3 95.0 98.3 Pulse 64 96 72 Resp 20 20 18 B/P (MAP) 141/64 (89) 134/61 (85) 127/60 (82) Pulse Ox 99 97 99 O2 Delivery Room Air Room Air Nasal Cannula Nasal Cannula O2 Flow Rate 3.0 3.0 07/11/20 07/12/20 07/12/20 07/12/20 23:00 03:00 07:00 08:00 Temp 97.9 97.9 97.6 97.9 97.9 97.6 Pulse 60 82 64 Resp 18 18 20 B/P (MAP) 105/67 (80) 133/64 (87) 176/77 (110) Pulse Ox 99 94 95 O2 Delivery Nasal Cannula Nasal Cannula Nasal Cannula Nasal Cannula O2 Flow Rate 3.0 3.0 2.0 2.0 Intake and Output 07/11/20 07/11/20 07/12/20 15:00 23:00 07:00 Intake Total 80 ml 80 ml Balance 80 ml 80 ml Nutrition Consultation Dietary Evaluation: Recommendations by RD: Dietary education by RD, Increase Calorie Intake, Protein supplementation Comments: Continue w/renal diet as ordered REC nepro q day or more often per pt preference Expected Outcomes/Goals: PO intake to meet >75% est needs Malnutrition Findings: Body Fat Depletion (Non Severe: Mild Depletion Weight Status: Appropriate Justicifation of Admission Dx: Justifications for Admission: Justification of Admission Dx: Yes Chronic Renal Failure: Hemodynamic Instability FELICITA KHAN MD Jul 12, 2020 10:43
[2020-07-12 11:12] VITALS: BP 147/65
--- NOTE | 2020-07-12 13:58 | NUR ---
SW following. Spoke with RN and reviewed chart. Pt remains COVID positive and is down to 2l 02 from 3l 02. Pt remains on IV Zosyn. Pt lives with her daughter and grandson. Pt and pt's daughter speak Swazi. SW was able to speak with pt's granddaughter Alexia ([phone]) who speaks [place] to coordinate care. Pt has HCBS through her t Medicaid but the provider has not been coming to the home per COVID. Alexia is working to get in contact with [facility] to see if pt's daughter can be paid to provide HCBS. SNU and LTC declined. PT evaluation says home with assistance. Alexia would like HH for pt on discharge and communicated understanding that this is temporary and through pt's Medicare. JOCY phoned and faxed referral to [facility] with [employer] [facility] at request of Alexia. JOCY completed patient choice of vendor form. Pt does not have home 02 so a 6 min walk will be needed to determine 02 needs at discharge. Pt will also need home infusion arranged if discharged on IV abx. JOCY called [facility] ([phone]) to see about outpatient dialysis protocol for COVID positive patients. JOCY LVM for automobile mechanic supervisor Laurence as the nurse stated that they don't take COVID positive at [facility]. JOC[facility] also [facility] ([phone]) but there was no answer or ability to leave a message.
--- NOTE | 2020-07-12 14:46 | PDOC ---
Renal-Progress Notes Subjective Notes Notes NO NEW COMPLAINTS History of Present Illness Hx of present illness STABLE Vitals Vitals Vital Signs Date Time Temp Pulse Resp B/P (MAP) Pulse Ox O2 Delivery O2 Flow Rate FiO2 07/12/20 11:12 98.1 62 20 147/65 (92) 97 Nasal Cannula 2.0 98.1 Weight Weight [ ] I.O. Intake and Output Intake and Output 07/12/20 07:00 Intake Total 160 ml Balance 160 ml Intake Oral 160 ml # Voids 3 Micro Micro Microbiology 07/06/20 Blood Culture - Final, Complete NO GROWTH AFTER 5 DAYS Review of Systems Constitutional: yes: weakness, alert, oriented Ears/Nose/Throat: Yes: no symptom reported Eyes: Yes: no symptom reported Pulmonary: Yes dyspnea Cardiovascular: Yes no symptom reported Gastrointestional: Yes: no symptom reported Musculoskeletal: Yes: no symptom reported Skin: Yes no symptom reported Psychiatric/Neurological: Yes: no symptom reported Endocrine: Yes: no symptom reported Physical Exam General Appearance: no apparent distress, afebrile Skin: warm Respiratory: bilateral CTA Heart: S1S2 Abdomen: soft, bowel sounds present Extremities: pulses present Neurology: alert Musculoskeletal: Other Assessment Assessment IMP ESRD ACUTE RESP FAILURE ACUTE D CHF ANEMIA PLAN HD TODAY UF TO DW SUPPLEMENTAL O2 PLACEMENT PENDING [facility] NEEDED ENC FLUID RESTRICTIONS ANTHONY VILA MD Jul 12, 2020 14:46
[2020-07-12 14:51] VITALS: BP 104/52
[2020-07-12 19:00] VITALS: BP 117/55
[2020-07-12] MEDS: LORazepam 0.5 MG TABLET PO PRN (21:57)
[2020-07-12] MEDS: FAMOTIDINE 20 MG TABLET. PO SCH (21:58)
[2020-07-12 22:51] VITALS: BP 90/57
[2020-07-13 03:00] VITALS: BP 94/50
[2020-07-13] MEDS: PIPERACILLIN/TAZOBACTAM 2.25 GM in IV NORMAL SALINE 50ML 50 ML IV SCH (05:42)
[2020-07-13] MEDS: ASCORBIC ACID 500 MG TABLET PO SCH ×4 (05:42→23:24)
[2020-07-13] MEDS: HEPARIN for SUB-Q USE 5,000 UNIT/ML VIAL. SQ SCH ×3 (05:44→21:39)
[2020-07-13 05:49] LABS: BASO % 0 % (0-3); EOS % 0 % (0-3); HEMATOCRIT 33.5 % (36.0-47.0); HEMOGLOBIN 11.3 g/dL (12.0-15.5); LYMPH # 0.6 x10^3/uL (1.0-4.8); LYMPH % 5 % (24-48); MEAN CORPUSCULAR HEMOGLOBIN 33 pg (25-35); MEAN CORPUSCULAR HGB CONC 34 g/dL (31-37); MEAN CORPUSCULAR VOLUME 99 fL (79-100); MONO # 0.4 x10^3/uL (0.0-1.1); MONO % 3 % (0-9); NEUT # 11.3 x10^3/uL (1.8-7.7); NEUT % 92 % (31-73); PLATELET COUNT 477 x10^3/uL (140-400); RED BLOOD COUNT 3.38 x10^6/uL (3.50-5.40); RED CELL DISTRIBUTION WIDTH 15.1 % (11.5-14.5); WHITE BLOOD COUNT 12.3 x10^3/uL (4.0-11.0)
[2020-07-13 06:12] LABS: ALBUMIN 2.3 g/dL (3.4-5.0); ALBUMIN/GLOBULIN RATIO 0.5 (1.0-1.7); CALCIUM 8.1 mg/dL (8.5-10.1); CREATININE 4.4 mg/dL (0.6-1.0); GFR 9.5; POTASSIUM 5.2 mmol/L (3.5-5.1); TOTAL BILIRUBIN 0.5 mg/dL (0.2-1.0); TOTAL PROTEIN 6.9 g/dL (6.4-8.2)
--- NOTE | 2020-07-13 07:16 | PDOC ---
PROGRESS NOTES Date of Service: DATE: 07/13/20 TIME: 07:16 Chief Complaint Chief Complaint IMPRESSION COVID-19 Acute hypoxic respiratory failure End-stage renal disease on hemodialysis Osteoarthritis GERD Hypertension Anemia of chronic renal insufficiency Severe protein calorie malnutrition anxiety acute right superior pubic ramus fracture. 04/22 Confusion - likely some ICU delerium. Patient family note that she jokes frequently. //some underlying cognitive impairment 07/13 SLIGHTLY BETTER, fair appetite, on 2 liters NC d/c antibiotics PLAN O2 SUPPORT IV STEROIDS Hemodialysis 07/12 COMFORTABLE RESTING WATCHING TV D/W RN Problem List (body system elements) * Impaired fnctnl mobility * Respiration/perfusion History of Present Illness History of Present Illness Ms Shelton is an 85 yo F w/PMHx HTN, CKD on hemodialysis brought into the hospital with worsening shortness of breath for the last 2 weeks. She has a cough with some productive sputum. She was seen in the urgent care and was noted to have a temperature of 100 degrees Fahrenheit. Her saturations were 90% on 4 liters nasal cannula. CXR with worsening interstitial infiltrates, COVID 19 test returned positive. 07/07: Patient seen and examined in the [facility] [id number] ICU 07/08: Patient seen and [facility] [id number] isolation unit. Afebrile on 4 L nasal cannulated oxygen. Plan to utilize CR, netezza developer services to communicate with her. I informed her on 3 separate times during our conversation that she is positive for the coronavirus and within 2 to 3 minutes she asked me again when her test is going to come back. The netezza developer was frustrated.WBC slightly up today. Afebrile. WBC 13.9 increased again. K5.3. She feels improved, no complaints still on 4 L nasal cannula oxygen.. Vitals Vitals Vital Signs Date Time Temp Pulse Resp B/P (MAP) Pulse Ox O2 Delivery O2 Flow Rate FiO2 07/13/20 03:00 98.2 74 16 94/50 (65) 96 Nasal Cannula 2.0 98.2 Physical Exam Physical Exam RRSTING IN BED, CALM General: Alert, Cooperative, No acute distress Heart: Regular rate Lungs: Crackles Abdomen: Normal bowel sounds, Soft, No tenderness Extremities: No clubbing, No cyanosis, No edema Skin: No rashes, No significant lesion Labs LABS Laboratory Tests Test 07/13/20 04:35 White Blood Count 12.3 x10^3/uL (4.0-11.0) Red Blood Count 3.38 x10^6/uL (3.50-5.40) Hemoglobin 11.3 g/dL (12.0-15.5) Hematocrit 33.5 % (36.0-47.0) Mean Corpuscular Volume 99 fL (79-100) Mean Corpuscular Hemoglobin 33 pg (25-35) Mean Corpuscular Hemoglobin Concent 34 g/dL (31-37) Red Cell Distribution Width 15.1 % (11.5-14.5) Platelet Count 477 x10^3/uL (140-400) Neutrophils (%) (Auto) 92 % (31-73) Lymphocytes (%) (Auto) 5 % (24-48) Monocytes (%) (Auto) 3 % (0-9) Eosinophils (%) (Auto) 0 % (0-3) Basophils (%) (Auto) 0 % (0-3) Neutrophils # (Auto) 11.3 x10^3/uL (1.8-7.7) Lymphocytes # (Auto) 0.6 x10^3/uL (1.0-4.8) Monocytes # (Auto) 0.4 x10^3/uL (0.0-1.1) Eosinophils # (Auto) 0.0 x10^3/uL (0.0-0.7) Basophils # (Auto) 0.0 x10^3/uL (0.0-0.2) Sodium Level 137 mmol/L (136-145) Potassium Level 5.2 mmol/L (3.5-5.1) Chloride Level 98 mmol/L (98-107) Carbon Dioxide Level 27 mmol/L (21-32) Anion Gap 12 (6-14) Blood Urea Nitrogen 61 mg/dL (7-20) Creatinine 4.4 mg/dL (0.6-1.0) Estimated GFR (Cockcroft-Gault) 9.5 BUN/Creatinine Ratio 14 (6-20) Glucose Level 158 mg/dL (70-99) Calcium Level 8.1 mg/dL (8.5-10.1) Total Bilirubin 0.5 mg/dL (0.2-1.0) Aspartate Amino Transf (AST/SGOT) 44 U/L (15-37) Alanine Aminotransferase (ALT/SGPT) 71 U/L (14-59) Alkaline Phosphatase 133 U/L (46-116) Total Protein 6.9 g/dL (6.4-8.2) Albumin 2.3 g/dL (3.4-5.0) Albumin/Globulin Ratio 0.5 (1.0-1.7) Assessment and Plan Assessmemt and Plan Problems Medical Problems: (1) Acute dyspnea Status: Acute (2) ESRD (end stage renal disease) on dialysis Status: Acute (3) Suspected 2019 novel coronavirus infection Status: Acute Comment Review of Relevant I have reviewed the following items thong (where applicable) has been applied. Labs Laboratory Tests Test 07/13/20 04:35 White Blood Count 12.3 x10^3/uL (4.0-11.0) Red Blood Count 3.38 x10^6/uL (3.50-5.40) Hemoglobin 11.3 g/dL (12.0-15.5) Hematocrit 33.5 % (36.0-47.0) Mean Corpuscular Volume 99 fL (79-100) Mean Corpuscular Hemoglobin 33 pg (25-35) Mean Corpuscular Hemoglobin Concent 34 g/dL (31-37) Red Cell Distribution Width 15.1 % (11.5-14.5) Platelet Count 477 x10^3/uL (140-400) Neutrophils (%) (Auto) 92 % (31-73) Lymphocytes (%) (Auto) 5 % (24-48) Monocytes (%) (Auto) 3 % (0-9) Eosinophils (%) (Auto) 0 % (0-3) Basophils (%) (Auto) 0 % (0-3) Neutrophils # (Auto) 11.3 x10^3/uL (1.8-7.7) Lymphocytes # (Auto) 0.6 x10^3/uL (1.0-4.8) Monocytes # (Auto) 0.4 x10^3/uL (0.0-1.1) Eosinophils # (Auto) 0.0 x10^3/uL (0.0-0.7) Basophils # (Auto) 0.0 x10^3/uL (0.0-0.2) Sodium Level 137 mmol/L (136-145) Potassium Level 5.2 mmol/L (3.5-5.1) Chloride Level 98 mmol/L (98-107) Carbon Dioxide Level 27 mmol/L (21-32) Anion Gap 12 (6-14) Blood Urea Nitrogen 61 mg/dL (7-20) Creatinine 4.4 mg/dL (0.6-1.0) Estimated GFR (Cockcroft-Gault) 9.5 BUN/Creatinine Ratio 14 (6-20) Glucose Level 158 mg/dL (70-99) Calcium Level 8.1 mg/dL (8.5-10.1) Total Bilirubin 0.5 mg/dL (0.2-1.0) Aspartate Amino Transf (AST/SGOT) 44 U/L (15-37) Alanine Aminotransferase (ALT/SGPT) 71 U/L (14-59) Alkaline Phosphatase 133 U/L (46-116) Total Protein 6.9 g/dL (6.4-8.2) Albumin 2.3 g/dL (3.4-5.0) Albumin/Globulin Ratio 0.5 (1.0-1.7) Laboratory Tests Test 07/13/20 04:35 White Blood Count 12.3 x10^3/uL (4.0-11.0) Red Blood Count 3.38 x10^6/uL (3.50-5.40) Hemoglobin 11.3 g/dL (12.0-15.5) Hematocrit 33.5 % (36.0-47.0) Mean Corpuscular Volume 99 fL (79-100) Mean Corpuscular Hemoglobin 33 pg (25-35) Mean Corpuscular Hemoglobin Concent 34 g/dL (31-37) Red Cell Distribution Width 15.1 % (11.5-14.5) Platelet Count 477 x10^3/uL (140-400) Neutrophils (%) (Auto) 92 % (31-73) Lymphocytes (%) (Auto) 5 % (24-48) Monocytes (%) (Auto) 3 % (0-9) Eosinophils (%) (Auto) 0 % (0-3) Basophils (%) (Auto) 0 % (0-3) Neutrophils # (Auto) 11.3 x10^3/uL (1.8-7.7) Lymphocytes # (Auto) 0.6 x10^3/uL (1.0-4.8) Monocytes # (Auto) 0.4 x10^3/uL (0.0-1.1) Eosinophils # (Auto) 0.0 x10^3/uL (0.0-0.7) Basophils # (Auto) 0.0 x10^3/uL (0.0-0.2) Sodium Level 137 mmol/L (136-145) Potassium Level 5.2 mmol/L (3.5-5.1) Chloride Level 98 mmol/L (98-107) Carbon Dioxide Level 27 mmol/L (21-32) Anion Gap 12 (6-14) Blood Urea Nitrogen 61 mg/dL (7-20) Creatinine 4.4 mg/dL (0.6-1.0) Estimated GFR (Cockcroft-Gault) 9.5 BUN/Creatinine Ratio 14 (6-20) Glucose Level 158 mg/dL (70-99) Calcium Level 8.1 mg/dL (8.5-10.1) Total Bilirubin 0.5 mg/dL (0.2-1.0) Aspartate Amino Transf (AST/SGOT) 44 U/L (15-37) Alanine Aminotransferase (ALT/SGPT) 71 U/L (14-59) Alkaline Phosphatase 133 U/L (46-116) Total Protein 6.9 g/dL (6.4-8.2) Albumin 2.3 g/dL (3.4-5.0) Albumin/Globulin Ratio 0.5 (1.0-1.7) Microbiology 07/06/20 Blood Culture - Final, Complete NO GROWTH AFTER 5 DAYS Medications Current Medications Methylprednisolone Sodium Succinate (SOLU-Medrol 40MG VIAL) 40 mg BID IV Last administered on 07/12/20at 21:56; Start 07/06/20 at 16:00; Stop 07/16/20 at 15:59 Ascorbic Acid (Vitamin C) 500 mg Q6HRS PO Last administered on 07/13/20at 05:42; Start 07/06/20 at 18:00 Zinc Sulfate (Orazinc) 220 mg DAILY PO Last administered on 07/12/20 08:15; Start 07/06/20 at 17:00 Vitamin D (Vitamin D3) 5,000 unit DAILY PO Last administered on 07/12/20 08:15; Start 07/06/20 at 16:00 Ondansetron HCl (Zofran) 4 mg PRN Q6HRS PRN IVP NAUSEA/VOMITING; Start 07/06/20 at 16:15 Famotidine (Pepcid Vial) 20 mg Q48H IVP Last administered on 07/09/20at 00:36; Start 07/06/20 at 21:00; Stop 07/09/20 at 13:55; Status DC Enoxaparin Sodium (Lovenox 30mg Syringe) 30 mg Q24H SQ Last administered on 07/08/20at 18:46; Start 07/06/20 at 17:00; Stop 07/09/20 at 13:52; Status DC Sodium Chloride (Normal Saline Flush) 3 ml QSHIFT PRN IV AFTER MEDS AND BLOOD DRAWS; Start 07/06/20 at 16:15 Acetaminophen (Tylenol) 650 mg PRN Q6HRS PRN PO MILD PAIN / TEMP > 100.3'F; Start 07/06/20 at 20:00 Vitamin B Complex/ Vitamin C (Citlali-Pavel) 1 tab DAILY PO Last administered on 07/12/20at 08:15; Start 07/07/20 at 09:00 Acetaminophen/ Hydrocodone Bitart (Lortab 5/325) 1 tab PRN Q4HRS PRN PO MODERATE-SEVERE PAIN; Start 07/06/20 at 20:00 Pantoprazole Sodium (Protonix) 40 mg DAILYAC PO Last administered on 07/12/20 08:15; Start 07/07/20 at 07:30 Polyethylene Glycol (miraLAX PACKET) 17 gm DAILY PO Last administered on 07/12/20 08:15; Start 07/07/20 at 09:00 Calcium Acetate (Phoslo) 1,334 mg TIDWMEALS PO Last administered on 07/12/20at 12:18; Start 07/07/20 at 08:00 Piperacillin Sod/ Tazobactam Sod (Zosyn Per Pharmacy) 1 each PRN DAILY PRN MC SEE COMMENTS; Start 07/07/20 at 10:45 Piperacillin Sod/ Tazobactam Sod 2.25 gm/Sodium Chloride 50 ml @ 100 mls/hr Q6HRS IV ; Start 07/07/20 at 11:00; Status Cancel Piperacillin Sod/ Tazobactam Sod 2.25 gm/Sodium Chloride 50 ml @ 100 mls/hr Q8HRS IV Last administered on 07/13/20at 05:42; Start 07/07/20 at 11:30 Lactobacillus Rhamnosus (Culturelle) 1 cap BID PO Last administered on 07/12/20at 21:57; Start 07/07/20 at 12:00 Sodium Chloride 1,000 ml @ 1,000 mls/hr Q1H PRN IV hypotension; Start 07/07/20 at 17:00; Stop 07/07/20 at 22:59; Status DC Albumin Human 200 ml @ 200 mls/hr 1X PRN PRN IV Hypotension; Start 07/07/20 at 17:00; Stop 07/07/20 at 22:59; Status DC Sodium Chloride 1,000 ml @ 400 mls/hr Q2H30M PRN IV PATENCY; Start 07/07/20 at 17:00; Stop 07/08/20 at 04:59; Status DC Info (PHARMACY MONITORING -- do not chart) 1 each PRN DAILY PRN MC SEE COMMENTS; Start 07/07/20 at 18:15; Stop 07/08/20 at 15:54; Status DC Info (PHARMACY MONITORING -- do not chart) 1 each PRN DAILY PRN MC SEE COMMENTS; Start 07/07/20 at 18:15; Stop 07/10/20 at 19:07; Status DC Hydralazine HCl (Apresoline Inj) 10 mg PRN Q4HRS PRN IVP ELEVATED BP, SEE COMMENTS Last administered on 07/09/20at 08:39; Start 07/09/20 at 08:15 Heparin Sodium (Porcine) (Heparin Sodium) 5,000 unit Q8HRS SQ Last administered on 07/13/20at 05:44; Start 07/09/20 at 22:00 Famotidine (Pepcid) 20 mg Q48H PO Last administered on 07/12/20at 21:58; Start 07/10/20 at 21:00 Sodium Chloride 1,000 ml @ 1,000 mls/hr Q1H PRN IV hypotension; Start 07/10/20 at 15:40; Stop 07/10/20 at 21:39; Status DC Albumin Human 200 ml @ 200 mls/hr 1X PRN PRN IV Hypotension; Start 07/10/20 at 15:45; Stop 07/10/20 at 21:44; Status DC Diphenhydramine HCl (Benadryl) 25 mg 1X PRN PRN IV ITCHING; Start 07/10/20 at 15:45; Stop 07/11/20 at 15:44; Status DC Diphenhydramine HCl (Benadryl) 25 mg 1X PRN PRN IV ITCHING; Start 07/10/20 at 15:45; Stop 07/11/20 at 15:44; Status DC Sodium Chloride (Normal Saline Flush) 10 ml 1X PRN PRN IV AP catheter pack; Start 07/10/20 at 15:45; Stop 07/11/20 at 15:44; Status DC Sodium Chloride (Normal Saline Flush) 10 ml 1X PRN PRN IV NEW ACCOUNTS REPRESENTATIVE catheter pack; Start 07/10/20 at 15:45; Stop 07/11/20 at 15:44; Status DC Sodium Chloride 1,000 ml @ 400 mls/hr Q2H30M PRN IV PATENCY; Start 07/10/20 at 15:40; Stop 07/11/20 at 03:39; Status DC Info (PHARMACY MONITORING -- do not chart) 1 each PRN DAILY PRN MC SEE COMMENTS; Start 07/10/20 at 15:45 Dextrose (Dextrose 50%-Water Syringe) 12.5 gm PRN Q15MIN PRN IV SEE COMMENTS; Start 07/10/20 at 19:00 Lorazepam (Ativan) 0.5 mg PRN BID PRN PO ANXIETY / AGITATION Last administered on 07/12/20at 21:57; Start 07/11/20 at 17:00 Sodium Chloride 1,000 ml @ 1,000 mls/hr Q1H PRN IV hypotension; Start 07/12/20 at 09:34; Stop 07/12/20 at 15:33; Status DC Albumin Human 200 ml @ 200 mls/hr 1X PRN PRN IV Hypotension; Start 07/12/20 at 09:45; Stop 07/12/20 at 15:44; Status DC Sodium Chloride 1,000 ml @ 400 mls/hr Q2H30M PRN IV PATENCY; Start 07/12/20 at 09:34; Stop 07/12/20 at 21:33; Status DC Info (PHARMACY MONITORING -- do not chart) 1 each PRN DAILY PRN MC SEE COMMENTS; Start 07/12/20 at 09:45; Status UNV Info (PHARMACY MONITORING -- do not chart) 1 each PRN DAILY PRN MC SEE COMMENTS; Start 07/12/20 at 09:45 Active Scripts Active Hydrocodone-Apap 5-325 (Hydrocodone Bit/Acetaminophen) 1 Each Tablet 1 Tab PO PRN Q4HRS PRN Children's Aspirin (Aspirin) 81 Mg Tab.chew 81 Mg PO DAILYWBKFT Reported Proair Hfa Inhaler (Albuterol Sulfate) 8.5 Gm Hfa.aer.ad 2 Puff INH PRN Q4HRS PRN Ativan (Lorazepam) 0.5 Mg Tablet 0.5 Mg PO PRN BID PRN Pantoprazole Sodium 40 Mg Tablet.dr 40 Mg PO BIDAC Estradiol 42.5 Gm Cream.appl 1 [place]yson VAG DAILY Vitals/I & O Vital Sign - Last 24 Hours 07/12/20 07/12/20 07/12/20 07/12/20 08:00 11:12 14:51 19:00 Temp 98.1 97.6 98.0 98.1 97.6 98.0 Pulse 62 64 87 Resp 20 18 18 B/P (MAP) 147/65 (92) 104/52 (69) 117/55 (75) Pulse Ox 97 97 96 O2 Delivery Nasal Cannula Nasal Cannula Nasal Cannula Nasal Cannula O2 Flow Rate 2.0 2.0 2.0 2.0 07/12/20 07/12/20 07/13/20 20:00 22:51 03:00 Temp 98.2 98.2 98.2 98.2 Pulse 83 74 Resp 17 16 B/P (MAP) 90/57 (68) 94/50 (65) Pulse Ox 95 96 O2 Delivery Nasal Cannula Nasal Cannula Nasal Cannula O2 Flow Rate 2.0 2.0 2.0 Intake and Output 07/12/20 07/12/20 07/13/20 15:00 23:00 07:00 Intake Total 600 ml 30 ml Balance 600 ml 30 ml Nutrition Consultation Dietary Evaluation: Recommendations by RD: Dietary education by RD, Increase Calorie Intake, Protein supplementation Comments: Continue w/renal diet and Nepro supplements REC renavite and vit c for wound healing Expected Outcomes/Goals: PO intake to meet >75% est needs- goal ongoing Malnutrition Findings: Body Fat Depletion (Non Severe: Mild Depletion Weight Status: Appropriate Justicifation of Admission Dx: Justifications for Admission: Justification of Admission Dx: Yes Chronic Renal Failure: Hemodynamic Instability FELICITA KHAN MD Jul 13, 2020 07:16
[2020-07-13 07:30] VITALS: BP 113/56
--- NOTE | 2020-07-13 08:19 | PDOC ---
PULMONARY PROGRESS NOTES DATE: 07/13/20 TIME: 08:19 Subjective Patient feels about the same Vitals Vital Signs Date Time Temp Pulse Resp B/P (MAP) Pulse Ox O2 Delivery O2 Flow Rate FiO2 07/13/20 03:00 98.2 74 16 94/50 (65) 96 Nasal Cannula 2.0 98.2 Comments alert appears comfortable nc at 2 liters rrr no paradoxical abd motion no accessory muscle use no rash Labs Laboratory Tests Test 07/13/20 04:35 White Blood Count 12.3 x10^3/uL (4.0-11.0) Red Blood Count 3.38 x10^6/uL (3.50-5.40) Hemoglobin 11.3 g/dL (12.0-15.5) Hematocrit 33.5 % (36.0-47.0) Mean Corpuscular Volume 99 fL (79-100) Mean Corpuscular Hemoglobin 33 pg (25-35) Mean Corpuscular Hemoglobin Concent 34 g/dL (31-37) Red Cell Distribution Width 15.1 % (11.5-14.5) Platelet Count 477 x10^3/uL (140-400) Neutrophils (%) (Auto) 92 % (31-73) Lymphocytes (%) (Auto) 5 % (24-48) Monocytes (%) (Auto) 3 % (0-9) Eosinophils (%) (Auto) 0 % (0-3) Basophils (%) (Auto) 0 % (0-3) Neutrophils # (Auto) 11.3 x10^3/uL (1.8-7.7) Lymphocytes # (Auto) 0.6 x10^3/uL (1.0-4.8) Monocytes # (Auto) 0.4 x10^3/uL (0.0-1.1) Eosinophils # (Auto) 0.0 x10^3/uL (0.0-0.7) Basophils # (Auto) 0.0 x10^3/uL (0.0-0.2) Sodium Level 137 mmol/L (136-145) Potassium Level 5.2 mmol/L (3.5-5.1) Chloride Level 98 mmol/L (98-107) Carbon Dioxide Level 27 mmol/L (21-32) Anion Gap 12 (6-14) Blood Urea Nitrogen 61 mg/dL (7-20) Creatinine 4.4 mg/dL (0.6-1.0) Estimated GFR (Cockcroft-Gault) 9.5 BUN/Creatinine Ratio 14 (6-20) Glucose Level 158 mg/dL (70-99) Calcium Level 8.1 mg/dL (8.5-10.1) Total Bilirubin 0.5 mg/dL (0.2-1.0) Aspartate Amino Transf (AST/SGOT) 44 U/L (15-37) Alanine Aminotransferase (ALT/SGPT) 71 U/L (14-59) Alkaline Phosphatase 133 U/L (46-116) Total Protein 6.9 g/dL (6.4-8.2) Albumin 2.3 g/dL (3.4-5.0) Albumin/Globulin Ratio 0.5 (1.0-1.7) Laboratory Tests Test 07/13/20 04:35 White Blood Count 12.3 x10^3/uL (4.0-11.0) Red Blood Count 3.38 x10^6/uL (3.50-5.40) Hemoglobin 11.3 g/dL (12.0-15.5) Hematocrit 33.5 % (36.0-47.0) Mean Corpuscular Volume 99 fL (79-100) Mean Corpuscular Hemoglobin 33 pg (25-35) Mean Corpuscular Hemoglobin Concent 34 g/dL (31-37) Red Cell Distribution Width 15.1 % (11.5-14.5) Platelet Count 477 x10^3/uL (140-400) Neutrophils (%) (Auto) 92 % (31-73) Lymphocytes (%) (Auto) 5 % (24-48) Monocytes (%) (Auto) 3 % (0-9) Eosinophils (%) (Auto) 0 % (0-3) Basophils (%) (Auto) 0 % (0-3) Neutrophils # (Auto) 11.3 x10^3/uL (1.8-7.7) Lymphocytes # (Auto) 0.6 x10^3/uL (1.0-4.8) Monocytes # (Auto) 0.4 x10^3/uL (0.0-1.1) Eosinophils # (Auto) 0.0 x10^3/uL (0.0-0.7) Basophils # (Auto) 0.0 x10^3/uL (0.0-0.2) Sodium Level 137 mmol/L (136-145) Potassium Level 5.2 mmol/L (3.5-5.1) Chloride Level 98 mmol/L (98-107) Carbon Dioxide Level 27 mmol/L (21-32) Anion Gap 12 (6-14) Blood Urea Nitrogen 61 mg/dL (7-20) Creatinine 4.4 mg/dL (0.6-1.0) Estimated GFR (Cockcroft-Gault) 9.5 BUN/Creatinine Ratio 14 (6-20) Glucose Level 158 mg/dL (70-99) Calcium Level 8.1 mg/dL (8.5-10.1) Total Bilirubin 0.5 mg/dL (0.2-1.0) Aspartate Amino Transf (AST/SGOT) 44 U/L (15-37) Alanine Aminotransferase (ALT/SGPT) 71 U/L (14-59) Alkaline Phosphatase 133 U/L (46-116) Total Protein 6.9 g/dL (6.4-8.2) Albumin 2.3 g/dL (3.4-5.0) Albumin/Globulin Ratio 0.5 (1.0-1.7) Medications Active Scripts Medications Dose Route/Sig Max Daily Dose Days Date Category Proair Hfa Inhaler (Albuterol Sulfate) 8.5 Gm Hfa.aer.ad 2 Puff INH PRN Q4HRS PRN 07/06/20 Reported Ativan (Lorazepam) 0.5 Mg Tablet 0.5 Mg PO PRN BID PRN 07/06/20 Reported Pantoprazole Sodium 40 Mg Tablet.dr 40 Mg PO BIDAC 07/06/20 Reported Estradiol 42.5 Gm Cream.appl 1 Jeyson VAG DAILY 07/06/20 Reported Hydrocodone-Apap 5-325 (Hydrocodone Bit/Acetaminophen) 1 Each Tablet 1 Tab PO PRN Q4HRS PRN 12/09/16 Rx Children's Aspirin (Aspirin) 81 Mg Tab.chew 81 Mg PO DAILYWBKFT 12/09/16 Rx Comments CXR IMPRESSION: Chronic interstitial changes are identified with superimposed increased interstitial airspace disease in the upper lobes suggestive of multifocal pulmonary infiltrates. Recommend short-term follow-up two-view chest radiograph. Interstitial edema may have similar appearance. Impression . IMPRESSION: 1. Acute hypoxic respiratory failure secondary to COVID-19 pneumonia. Other possible differential diagnosis would be acute congestive heart failure. 2. Abnormal chest x-ray with worsening interstitial infiltrates. COVID-19 pneumonia versus congestive heart failure. 3. End-stage renal disease, on hemodialysis. 4. Increased procalcitonin level. 5. Abnormal D-dimer, which can be nonspecific. covid + , Clinically, low suspicion for thromboembolic disease. Plan . Discussed with RN continue current support We will discontinue antibiotics With decreased they are able Continue nasal cannula oxygen Follow nephrology input YEIMI DIGGS MD Jul 13, 2020 08:19
[2020-07-13] MEDS: POLYETHYLENE GLYCOL 3350 17 GM PACKET. PO SCH (09:47)
[2020-07-13] MEDS: PANTOPRAZOLE 40 MG TABLET.DR. PO SCH (09:47)
[2020-07-13] MEDS: LACTOBACILLUS RHAMNOSUS GG 1 CAPSULE. PO SCH ×2 (09:47→21:24)
[2020-07-13] MEDS: CHOLECALCIFEROL (VITAMIN D3) 5,000 UNIT CAPSULE PO SCH (09:47)
[2020-07-13] MEDS: FOLIC/VIT B COMP W-C (RENAL) TABLET. PO SCH (09:47)
[2020-07-13] MEDS: CALCIUM ACETATE 667 MG CAPSULE PO SCH ×3 (09:47→17:11)
[2020-07-13] MEDS: ZINC SULFATE 220 MG CAPSULE. PO SCH (09:48)
[2020-07-13] MEDS: methylPREDNISolone SOD SUCC PF 40 MG/ML VIAL. IV SCH (09:48)
[2020-07-13 11:40] VITALS: BP 124/60
--- NOTE | 2020-07-13 11:59 | PDOC ---
Renal-Progress Notes Subjective Notes Notes NO NEW COMPLAINTS History of Present Illness Hx of present illness STABLE Vitals Vitals Vital Signs Date Time Temp Pulse Resp B/P (MAP) Pulse Ox O2 Delivery O2 Flow Rate FiO2 07/13/20 11:40 97.7 62 16 124/60 (81) 98 Nasal Cannula 2.0 97.7 Weight Weight [ ] I.O. Intake and Output Intake and Output 07/13/20 07:00 Intake Total 630 ml Balance 630 ml Intake Oral 630 ml # Voids 1 # Bowel Movements 3 Labs Labs Laboratory Tests Test 07/13/20 04:35 White Blood Count 12.3 x10^3/uL (4.0-11.0) Red Blood Count 3.38 x10^6/uL (3.50-5.40) Hemoglobin 11.3 g/dL (12.0-15.5) Hematocrit 33.5 % (36.0-47.0) Mean Corpuscular Volume 99 fL (79-100) Mean Corpuscular Hemoglobin 33 pg (25-35) Mean Corpuscular Hemoglobin Concent 34 g/dL (31-37) Red Cell Distribution Width 15.1 % (11.5-14.5) Platelet Count 477 x10^3/uL (140-400) Neutrophils (%) (Auto) 92 % (31-73) Lymphocytes (%) (Auto) 5 % (24-48) Monocytes (%) (Auto) 3 % (0-9) Eosinophils (%) (Auto) 0 % (0-3) Basophils (%) (Auto) 0 % (0-3) Neutrophils # (Auto) 11.3 x10^3/uL (1.8-7.7) Lymphocytes # (Auto) 0.6 x10^3/uL (1.0-4.8) Monocytes # (Auto) 0.4 x10^3/uL (0.0-1.1) Eosinophils # (Auto) 0.0 x10^3/uL (0.0-0.7) Basophils # (Auto) 0.0 x10^3/uL (0.0-0.2) Sodium Level 137 mmol/L (136-145) Potassium Level 5.2 mmol/L (3.5-5.1) Chloride Level 98 mmol/L (98-107) Carbon Dioxide Level 27 mmol/L (21-32) Anion Gap 12 (6-14) Blood Urea Nitrogen 61 mg/dL (7-20) Creatinine 4.4 mg/dL (0.6-1.0) Estimated GFR (Cockcroft-Gault) 9.5 BUN/Creatinine Ratio 14 (6-20) Glucose Level 158 mg/dL (70-99) Calcium Level 8.1 mg/dL (8.5-10.1) Total Bilirubin 0.5 mg/dL (0.2-1.0) Aspartate Amino Transf (AST/SGOT) 44 U/L (15-37) Alanine Aminotransferase (ALT/SGPT) 71 U/L (14-59) Alkaline Phosphatase 133 U/L (46-116) Total Protein 6.9 g/dL (6.4-8.2) Albumin 2.3 g/dL (3.4-5.0) Albumin/Globulin Ratio 0.5 (1.0-1.7) Micro Micro Microbiology 07/06/20 Blood Culture - Final, Complete NO GROWTH AFTER 5 DAYS Review of Systems Constitutional: yes: weakness, alert, oriented Ears/Nose/Throat: Yes: no symptom reported Eyes: Yes: no symptom reported Pulmonary: Yes dyspnea Cardiovascular: Yes no symptom reported Gastrointestional: Yes: no symptom reported Musculoskeletal: Yes: no symptom reported Skin: Yes no symptom reported Psychiatric/Neurological: Yes: no symptom reported Endocrine: Yes: no symptom reported Physical Exam General Appearance: no apparent distress, afebrile Skin: warm Respiratory: bilateral CTA Heart: S1S2 Abdomen: soft, bowel sounds present Extremities: pulses present Neurology: alert Musculoskeletal: Other Assessment Assessment IMP ESRD ACUTE RESP FAILURE ACUTE D CHF ANEMIA COVID 19 ISOLATION PLAN HD TOMORROW SUPPLEMENTAL O2 PLACEMENT PENDING SYLVIE NEEDED ENC FLUID RESTRICTIONS ANTHONY VILA MD Jul 13, 2020 11:59
[2020-07-13] MEDS: LORazepam 0.5 MG TABLET PO PRN ×2 (12:57→23:24)
[2020-07-13 15:00] VITALS: BP 132/61
--- NOTE | 2020-07-13 17:26 | NUR ---
SW following. Spoke with RN and reviewed chart. Pt remains on 2l 02. Pt on IV Dextrose and IV Zosyn. SW requested 6 min walk to determine if 02 is needed at discharge. Pt to discharge home with [facility] COWAN. JOCY did coordinate care with Paz from [facility]. SW attempted to reach pt's dialysis clinic about procedure for dialyzing COVID positive patients. SW following.
[2020-07-13 19:58] VITALS: BP_SYST 112
[2020-07-13 23:53] VITALS: BP 138/63
[2020-07-14 03:52] VITALS: BP 93/54
[2020-07-14] MEDS ORDERED: ALBUMIN HUMAN 25% 200 ML IV PRN (05:45)
[2020-07-14] MEDS ORDERED: IV NORMAL SALINE 1000ML BAG 1,000 ML IV PRN ×2 (05:45)
[2020-07-14] MEDS: ASCORBIC ACID 500 MG TABLET PO SCH ×3 (06:00→12:49)
[2020-07-14] MEDS: HEPARIN for SUB-Q USE 5,000 UNIT/ML VIAL. SQ SCH ×2 (06:00→14:00)
[2020-07-14] MEDS ORDERED: DIALYSIS PATIENT. MC PRN ×2 (07:30)
--- NOTE | 2020-07-14 08:35 | PDOC ---
PULMONARY PROGRESS NOTES DATE: 07/14/20 TIME: 08:35 Subjective Patient feels about the same Vitals Vital Signs Date Time Temp Pulse Resp B/P (MAP) Pulse Ox O2 Delivery O2 Flow Rate FiO2 07/14/20 03:52 53 16 93/54 (67) 94 Nasal Cannula 2.0 07/13/20 23:53 97.7 97.7 Comments alert appears comfortable nc at 2 liters rrr no paradoxical abd motion no accessory muscle use no rash Labs Laboratory Tests Test 07/13/20 04:35 White Blood Count 12.3 x10^3/uL (4.0-11.0) Red Blood Count 3.38 x10^6/uL (3.50-5.40) Hemoglobin 11.3 g/dL (12.0-15.5) Hematocrit 33.5 % (36.0-47.0) Mean Corpuscular Volume 99 fL (79-100) Mean Corpuscular Hemoglobin 33 pg (25-35) Mean Corpuscular Hemoglobin Concent 34 g/dL (31-37) Red Cell Distribution Width 15.1 % (11.5-14.5) Platelet Count 477 x10^3/uL (140-400) Neutrophils (%) (Auto) 92 % (31-73) Lymphocytes (%) (Auto) 5 % (24-48) Monocytes (%) (Auto) 3 % (0-9) Eosinophils (%) (Auto) 0 % (0-3) Basophils (%) (Auto) 0 % (0-3) Neutrophils # (Auto) 11.3 x10^3/uL (1.8-7.7) Lymphocytes # (Auto) 0.6 x10^3/uL (1.0-4.8) Monocytes # (Auto) 0.4 x10^3/uL (0.0-1.1) Eosinophils # (Auto) 0.0 x10^3/uL (0.0-0.7) Basophils # (Auto) 0.0 x10^3/uL (0.0-0.2) Sodium Level 137 mmol/L (136-145) Potassium Level 5.2 mmol/L (3.5-5.1) Chloride Level 98 mmol/L (98-107) Carbon Dioxide Level 27 mmol/L (21-32) Anion Gap 12 (6-14) Blood Urea Nitrogen 61 mg/dL (7-20) Creatinine 4.4 mg/dL (0.6-1.0) Estimated GFR (Cockcroft-Gault) 9.5 BUN/Creatinine Ratio 14 (6-20) Glucose Level 158 mg/dL (70-99) Calcium Level 8.1 mg/dL (8.5-10.1) Total Bilirubin 0.5 mg/dL (0.2-1.0) Aspartate Amino Transf (AST/SGOT) 44 U/L (15-37) Alanine Aminotransferase (ALT/SGPT) 71 U/L (14-59) Alkaline Phosphatase 133 U/L (46-116) Total Protein 6.9 g/dL (6.4-8.2) Albumin 2.3 g/dL (3.4-5.0) Albumin/Globulin Ratio 0.5 (1.0-1.7) Medications Active Scripts Medications Dose Route/Sig Max Daily Dose Days Date Category Proair Hfa Inhaler (Albuterol Sulfate) 8.5 Gm Hfa.aer.ad 2 Puff INH PRN Q4HRS PRN 07/06/20 Reported Ativan (Lorazepam) 0.5 Mg Tablet 0.5 Mg PO PRN BID PRN 07/06/20 Reported Pantoprazole Sodium 40 Mg Tablet.dr 40 Mg PO BIDAC 07/06/20 Reported Estradiol 42.5 Gm Cream.appl 1 Jeyson VAG DAILY 07/06/20 Reported Hydrocodone-Apap 5-325 (Hydrocodone Bit/Acetaminophen) 1 Each Tablet 1 Tab PO PRN Q4HRS PRN 12/09/16 Rx Children's Aspirin (Aspirin) 81 Mg Tab.chew 81 Mg PO DAILYWBKFT 12/09/16 Rx Comments CXR IMPRESSION: Chronic interstitial changes are identified with superimposed increased interstitial airspace disease in the upper lobes suggestive of multifocal pulmonary infiltrates. Recommend short-term follow-up two-view chest radiograph. Interstitial edema may have similar appearance. Impression . IMPRESSION: 1. Acute hypoxic respiratory failure secondary to COVID-19 pneumonia. Other possible differential diagnosis would be acute congestive heart failure. 2. Abnormal chest x-ray with worsening interstitial infiltrates. COVID-19 pneumonia versus congestive heart failure. 3. End-stage renal disease, on hemodialysis. 4. Increased procalcitonin level. 5. Abnormal D-dimer, which can be nonspecific. covid + , Clinically, low suspicion for thromboembolic disease. Plan . Patient to discharge today Discussed with YEIMI COPE MD Jul 14, 2020 08:35
--- NOTE | 2020-07-14 08:55 | PDOC ---
PROGRESS NOTES Date of Service: DATE: 07/14/20 TIME: 08:55 Chief Complaint Chief Complaint discharge dx COVID-19 PNEUMONITIS Acute hypoxic respiratory failure End-stage renal disease on hemodialysis Osteoarthritis GERD Hypertension Anemia of chronic renal insufficiency Severe protein calorie malnutrition anxiety acute right superior pubic ramus fracture. 04/22 Confusion - likely some ICU delerium. Patient family note that she jokes frequently. //some underlying cognitive impairment 07/14 BETTER, fair appetite, on 2 liters NC d/c antibiotics , NEEDS HOME O2 PLAN O2 SUPPORT IV STEROIDS d/c Hemodialysis 07/14 COMFORTABLE RESTING WATCHING TV , WILL GO HOME WITH FAMILY , HOME HEALTH O2 2 LITERS NC D/W RN D/C PLANNING 35 MIN Problem List (body system elements) * Impaired fnctnl mobility * Respiration/perfusion History of Present Illness History of Present Illness Ms Shelton is an 85 yo F w/PMHx HTN, CKD on hemodialysis brought into the hospital with worsening shortness of breath for the last 2 weeks. She has a cough with some productive sputum. She was seen in the urgent care and was noted to have a temperature of 100 degrees Fahrenheit. Her saturations were 90% on 4 liters nasal cannula. CXR with worsening interstitial infiltrates, COVID 19 test returned positive. 07/07: Patient seen and examined in the [facility] [id number] ICU 07/08: Patient seen and [facility] [id number] isolation unit. Afebrile on 4 L nasal cannulated oxygen. Plan to utilize [facility], manager infusion services to communicate with her. I informed her on 3 separate times during our conversation that she is positive for the coronavirus and within 2 to 3 minutes she asked me again when her test is going to come back. The manager infusion was frustrated.WBC slightly up today. Afebrile. WBC 13.9 increased again. K5.3. She feels improved, no complaints still on 4 L nasal cannula oxygen.. Vitals Vitals Vital Signs Date Time Temp Pulse Resp B/P (MAP) Pulse Ox O2 Delivery O2 Flow Rate FiO2 07/14/20 03:52 53 16 93/54 (67) 94 Nasal Cannula 2.0 07/13/20 23:53 97.7 97.7 Physical Exam Physical Exam RRSTING IN BED, CALM General: Alert, Oriented X3, Cooperative, No acute distress Heart: Regular rate Abdomen: Normal bowel sounds, Soft, No tenderness Extremities: No clubbing, No cyanosis, No edema Skin: No rashes, No significant lesion Assessment and Plan Assessmemt and Plan Problems Medical Problems: (1) Acute dyspnea Status: Acute (2) ESRD (end stage renal disease) on dialysis Status: Acute (3) Suspected 2019 novel coronavirus infection Status: Acute Comment Review of Relevant I have reviewed the following items thong (where applicable) has been applied. Labs Laboratory Tests Test 07/13/20 04:35 White Blood Count 12.3 x10^3/uL (4.0-11.0) Red Blood Count 3.38 x10^6/uL (3.50-5.40) Hemoglobin 11.3 g/dL (12.0-15.5) Hematocrit 33.5 % (36.0-47.0) Mean Corpuscular Volume 99 fL (79-100) Mean Corpuscular Hemoglobin 33 pg (25-35) Mean Corpuscular Hemoglobin Concent 34 g/dL (31-37) Red Cell Distribution Width 15.1 % (11.5-14.5) Platelet Count 477 x10^3/uL (140-400) Neutrophils (%) (Auto) 92 % (31-73) Lymphocytes (%) (Auto) 5 % (24-48) Monocytes (%) (Auto) 3 % (0-9) Eosinophils (%) (Auto) 0 % (0-3) Basophils (%) (Auto) 0 % (0-3) Neutrophils # (Auto) 11.3 x10^3/uL (1.8-7.7) Lymphocytes # (Auto) 0.6 x10^3/uL (1.0-4.8) Monocytes # (Auto) 0.4 x10^3/uL (0.0-1.1) Eosinophils # (Auto) 0.0 x10^3/uL (0.0-0.7) Basophils # (Auto) 0.0 x10^3/uL (0.0-0.2) Sodium Level 137 mmol/L (136-145) Potassium Level 5.2 mmol/L (3.5-5.1) Chloride Level 98 mmol/L (98-107) Carbon Dioxide Level 27 mmol/L (21-32) Anion Gap 12 (6-14) Blood Urea Nitrogen 61 mg/dL (7-20) Creatinine 4.4 mg/dL (0.6-1.0) Estimated GFR (Cockcroft-Gault) 9.5 BUN/Creatinine Ratio 14 (6-20) Glucose Level 158 mg/dL (70-99) Calcium Level 8.1 mg/dL (8.5-10.1) Total Bilirubin 0.5 mg/dL (0.2-1.0) Aspartate Amino Transf (AST/SGOT) 44 U/L (15-37) Alanine Aminotransferase (ALT/SGPT) 71 U/L (14-59) Alkaline Phosphatase 133 U/L (46-116) Total Protein 6.9 g/dL (6.4-8.2) Albumin 2.3 g/dL (3.4-5.0) Albumin/Globulin Ratio 0.5 (1.0-1.7) Microbiology 07/06/20 Blood Culture - Final, Complete NO GROWTH AFTER 5 DAYS Medications Current Medications Methylprednisolone Sodium Succinate (SOLU-Medrol 40MG VIAL) 40 mg BID IV Last administered on 07/13/20at 09:48; Start 07/06/20 at 16:00; Stop 07/13/20 at 12:37; Status DC Ascorbic Acid (Vitamin C) 500 mg Q6HRS PO Last administered on 07/14/20at 06:00; Start 07/06/20 at 18:00 Zinc Sulfate (Orazinc) 220 mg DAILY PO Last administered on 07/13/20at 09:48; Start 07/06/20 at 17:00 Vitamin D (Vitamin D3) 5,000 unit DAILY PO Last administered on 07/13/20at 09:47; Start 07/06/20 at 16:00 Ondansetron HCl (Zofran) 4 mg PRN Q6HRS PRN IVP NAUSEA/VOMITING; Start 07/06/20 at 16:15 Famotidine (Pepcid Vial) 20 mg Q48H IVP Last administered on 07/09/20at 00:36; Start 07/06/20 at 21:00; Stop 07/09/20 at 13:55; Status DC Enoxaparin Sodium (Lovenox 30mg Syringe) 30 mg Q24H SQ Last administered on 07/08/20at 18:46; Start 07/06/20 at 17:00; Stop 07/09/20 at 13:52; Status DC Sodium Chloride (Normal Saline Flush) 3 ml QSHIFT PRN IV AFTER MEDS AND BLOOD DRAWS; Start 07/06/20 at 16:15 Acetaminophen (Tylenol) 650 mg PRN Q6HRS PRN PO MILD PAIN / TEMP > 100.3'F; Start 07/06/20 at 20:00 Vitamin B Complex/ Vitamin C (Citlali-Pavel) 1 tab DAILY PO Last administered on 07/13/20at 09:47; Start 07/07/20 at 09:00 Acetaminophen/ Hydrocodone Bitart (Lortab 5/325) 1 tab PRN Q4HRS PRN PO MODERATE-SEVERE PAIN; Start 07/06/20 at 20:00 Pantoprazole Sodium (Protonix) 40 mg DAILYAC PO Last administered on 07/13/20at 09:47; Start 07/07/20 at 07:30 Polyethylene Glycol (miraLAX PACKET) 17 gm DAILY PO Last administered on 07/13/20at 09:47; Start 07/07/20 at 09:00 Calcium Acetate (Phoslo) 1,334 mg TIDWMEALS PO Last administered on 07/13/20at 17:11; Start 07/07/20 at 08:00 Piperacillin Sod/ Tazobactam Sod (Zosyn Per Pharmacy) 1 each PRN DAILY PRN MC SEE COMMENTS; Start 07/07/20 at 10:45; Stop 07/13/20 at 18:10; Status DC Piperacillin Sod/ Tazobactam Sod 2.25 gm/Sodium Chloride 50 ml @ 100 mls/hr Q6HRS IV ; Start 07/07/20 at 11:00; Status Cancel Piperacillin Sod/ Tazobactam Sod 2.25 gm/Sodium Chloride 50 ml @ 100 mls/hr Q8HRS IV Last administered on 07/13/20at 05:42; Start 07/07/20 at 11:30; Stop 07/13/20 at 12:37; Status DC Lactobacillus Rhamnosus (Culturelle) 1 cap BID PO Last administered on 07/13/20a t 21:24; Start 07/07/20 at 12:00 Sodium Chloride 1,000 ml @ 1,000 mls/hr Q1H PRN IV hypotension; Start 07/07/20 at 17:00; Stop 07/07/20 at 22:59; Status DC Albumin Human 200 ml @ 200 mls/hr 1X PRN PRN IV Hypotension; Start 07/07/20 at 17:00; Stop 07/07/20 at 22:59; Status DC Sodium Chloride 1,000 ml @ 400 mls/hr Q2H30M PRN IV PATENCY; Start 07/07/20 at 17:00; Stop 07/08/20 at 04:59; Status DC Info (PHARMACY MONITORING -- do not chart) 1 each PRN DAILY PRN MC SEE COMMENTS; Start 07/07/20 at 18:15; Stop 07/08/20 at 15:54; Status DC Info (PHARMACY MONITORING -- do not chart) 1 each PRN DAILY PRN MC SEE COMMENTS; Start 07/07/20 at 18:15; Stop 07/10/20 at 19:07; Status DC Hydralazine HCl (Apresoline Inj) 10 mg PRN Q4HRS PRN IVP ELEVATED BP, SEE COMMENTS Last administered on 07/09/20at 08:39; Start 07/09/20 at 08:15 Heparin Sodium (Porcine) (Heparin Sodium) 5,000 unit Q8HRS SQ Last administered on 07/14/20at 06:00; Start 07/09/20 at 22:00 Famotidine (Pepcid) 20 mg Q48H PO Last administered on 07/12/20at 21:58; Start at 21:00 Sodium Chloride 1,000 ml @ 1,000 mls/hr Q1H PRN IV hypotension; Start 07/10/20 at 15:40; Stop 07/10/20 at 21:39; Status DC Albumin Human 200 ml @ 200 mls/hr 1X PRN PRN IV Hypotension; Start 07/10/20 at 15:45; Stop 07/10/20 at 21:44; Status DC Diphenhydramine HCl (Benadryl) 25 mg 1X PRN PRN IV ITCHING; Start 07/10/20 at 15:45; Stop 07/11/20 at 15:44; Status DC Diphenhydramine HCl (Benadryl) 25 mg 1X PRN PRN IV ITCHING; Start 07/10/20 at 15:45; Stop 07/11/20 at 15:44; Status DC Sodium Chloride (Normal Saline Flush) 10 ml 1X PRN PRN IV AP catheter pack; Start 07/10/20 at 15:45; Stop 07/11/20 at 15:44; Status DC Sodium Chloride (Normal Saline Flush) 10 ml 1X PRN PRN IV AWNING FRAME MAKER catheter pack; Start 07/10/20 at 15:45; Stop 07/11/20 at 15:44; Status DC Sodium Chloride 1,000 ml @ 400 mls/hr Q2H30M PRN IV PATENCY; Start 07/10/20 at 15:40; Stop 07/11/20 at 03:39; Status DC Info (PHARMACY MONITORING -- do not chart) 1 each PRN DAILY PRN MC SEE COMMENTS; Start 07/10/20 at 15:45 Dextrose (Dextrose 50%-Water Syringe) 12.5 gm PRN Q15MIN PRN IV SEE COMMENTS; Start 07/10/20 at 19:00 Lorazepam (Ativan) 0.5 mg PRN BID PRN PO ANXIETY / AGITATION Last administered on 07/13/20at 23:24; Start 07/11/20 at 17:00 Sodium Chloride 1,000 ml @ 1,000 mls/hr Q1H PRN IV hypotension; Start 07/12/20 at 09:34; Stop 07/12/20 at 15:33; Status DC Albumin Human 200 ml @ 200 mls/hr 1X PRN PRN IV Hypotension; Start 07/12/20 at 09:45; Stop 07/12/20 at 15:44; Status DC Sodium Chloride 1,000 ml @ 400 mls/hr Q2H30M PRN IV PATENCY; Start 07/12/20 at 09:34; Stop 07/12/20 at 21:33; Status DC Info (PHARMACY MONITORING -- do not chart) 1 each PRN DAILY PRN MC SEE COMMENTS; Start 07/12/20 at 09:45; Status UNV Info (PHARMACY MONITORING -- do not chart) 1 each PRN DAILY PRN MC SEE COMMENTS; Start 07/12/20 at 09:45; Status Cancel Methylprednisolone Sodium Succinate (SOLU-Medrol 40MG VIAL) 40 mg DAILY IV ; Start 07/14/20 at 09:00; Stop 07/19/20 at 09:00 Sodium Chloride 1,000 ml @ 1,000 mls/hr Q1H PRN IV hypotension; Start 07/14/20 at 05:45; Stop 07/14/20 at 11:44 Albumin Human 200 ml @ 200 mls/hr 1X PRN PRN IV Hypotension; Start 07/14/20 at 05:45; Stop 07/14/20 at 11:44 Sodium Chloride 1,000 ml @ 400 mls/hr Q2H30M PRN IV PATENCY; Start 07/14/20 at 05:45; Stop 07/14/20 at 17:44 Info (PHARMACY MONITORING -- do not chart) 1 each PRN DAILY PRN MC SEE COMMENTS; Start 07/14/20 at 07:30 Info (PHARMACY MONITORING -- do not chart) 1 each PRN DAILY PRN MC SEE COMMENTS; Start 07/14/20 at 07:30 Active Scripts Active Hydrocodone-Apap 5-325 (Hydrocodone Bit/Acetaminophen) 1 Each Tablet 1 Tab PO PRN Q4HRS PRN Children's Aspirin (Aspirin) 81 Mg Tab.chew 81 Mg PO DAILYWBKFT Reported Proair Hfa Inhaler (Albuterol Sulfate) 8.5 Gm Hfa.aer.ad 2 Puff INH PRN Q4HRS PRN Ativan (Lorazepam) 0.5 Mg Tablet 0.5 Mg PO PRN BID PRN Pantoprazole Sodium 40 Mg Tablet.dr 40 Mg PO BIDAC Estradiol 42.5 Gm Cream.appl 1 Jeyson VAG DAILY Vitals/I & O Vital Sign - Last 24 Hours 07/13/20 07/13/20 07/13/20 07/13/20 11:40 15:00 19:35 19:58 Temp 97.7 97.8 98.1 97.7 97.8 98.1 Pulse 62 73 72 Resp 16 16 20 B/P (MAP) 124/60 (81) 132/61 (84) 112/ Pulse Ox 98 98 O2 Delivery Nasal Cannula Nasal Cannula Nasal Cannula Nasal Cannula O2 Flow Rate 2.0 2.0 2.0 2.0 07/13/20 07/14/20 23:53 03:52 Temp 97.7 97.7 Pulse 64 53 Resp 20 16 B/P (MAP) 138/63 (88) 93/54 (67) Pulse Ox 98 94 O2 Delivery Nasal Cannula Nasal Cannula O2 Flow Rate 2.0 2.0 Intake and Output 07/13/20 07/13/20 07/14/20 15:00 23:00 07:00 Intake Total 580 ml Balance 580 ml Nutrition Consultation Dietary Evaluation: Recommendations by RD: Dietary education by RD, Increase Calorie Intake, Protein supplementation Comments: Continue w/renal diet and Nepro supplements REC renavite and vit c for wound healing Expected Outcomes/Goals: PO intake to meet >75% est needs- goal ongoing Malnutrition Findings: Body Fat Depletion (Non Severe: Mild Depletion Weight Status: Appropriate Justicifation of Admission Dx: Justifications for Admission: Justification of Admission Dx: Yes Chronic Renal Failure: Hemodynamic Instability FELICITA KHAN MD Jul 14, 2020 08:55
[2020-07-14] MEDS ORDERED: methylPREDNISolone SOD SUCC PF 40 MG/ML VIAL. IV SCH (09:00)
[2020-07-14] MEDS: LACTOBACILLUS RHAMNOSUS GG 1 CAPSULE. PO SCH (09:31)
[2020-07-14] MEDS: CALCIUM ACETATE 667 MG CAPSULE PO SCH ×3 (09:31→17:00)
[2020-07-14] MEDS: ZINC SULFATE 220 MG CAPSULE. PO SCH (09:31)
[2020-07-14] MEDS: FOLIC/VIT B COMP W-C (RENAL) TABLET. PO SCH (09:31)
[2020-07-14] MEDS: PANTOPRAZOLE 40 MG TABLET.DR. PO SCH (09:31)
[2020-07-14] MEDS: CHOLECALCIFEROL (VITAMIN D3) 5,000 UNIT CAPSULE PO SCH (09:31)
[2020-07-14] MEDS: POLYETHYLENE GLYCOL 3350 17 GM PACKET. PO SCH (09:31)
--- NOTE | 2020-07-14 11:25 | PDOC3 ---
Discharge Summary Date of Admission: Jul 06, 2020 Date of Discharge: Jul 14, 2020 Follow-Up: 1-2 days Admitting Diagnosis comment: discharge dx COVID-19 PNEUMONITIS Acute hypoxic respiratory failure End-stage renal disease on hemodialysis Osteoarthritis GERD Hypertension Anemia of chronic renal insufficiency Severe protein calorie malnutrition anxiety acute right superior pubic ramus fracture. 04/22 Confusion - likely some ICU delerium., IMPROVED Patient family note that she jokes frequently. //some underlying cognitive impairment 07/14 BETTER, fair appetite, on 2 liters NC d/c antibiotics , NEEDS HOME O2 PLAN O2 SUPPORT IV STEROIDS d/c Hemodialysis 07/14 COMFORTABLE RESTING WATCHING TV , WILL GO HOME WITH FAMILY , HOME HEALTH O2 2 LITERS NC D/W RN D/C PLANNING 35 MIN Problem List (body system elements) * Impaired fnctnl mobility * Respiration/perfusion History of Present Illness History of Present Illness Ms Shelton is an 85 yo F w/PMHx HTN, CKD on hemodialysis brought into the hospital with worsening shortness of breath for the last 2 weeks. She has a cough with some productive sputum. She was seen in the urgent care and was noted to have a temperature of 100 degrees Fahrenheit. Her saturations were 90% on 4 liters nasal cannula. CXR with worsening interstitial infiltrates, COVID 19 test returned positive. 07/07: Patient seen and examined in the [facility] [facility] [address] ICU 07/08: Patient seen and [facility] [place] [address] isolation unit. Afebrile on 4 L nasal cannulated oxygen. Plan to utilize CR, patient partner services to communicate with her. I informed her on 3 separate times during our conversation that she is positive for the coronavirus and within 2 to 3 minutes she asked me again when her test is going to come back. The patient partner was frustrated.WBC slightly up today. Afebrile. WBC 13.9 increased again. K5.3. She feels improved, no complaints still on 4 L nasal cannula oxygen.. FINAL DIAGNOSIS Problems Medical Problems: (1) Acute dyspnea Status: Acute (2) ESRD (end stage renal disease) on dialysis Status: Acute (3) Suspected 2019 novel coronavirus infection Status: Acute Brief Hospital Course Ms. Shelton is a 85 old [sex] who presented with [ COVID 19 PNEUMONIA ] CONDITION AT DISCHARGE: Improved Discharge Medications Current Medications Methylprednisolone Sodium Succinate (SOLU-Medrol 40MG VIAL) 40 mg BID IV Last administered on 07/13/20at 09:48; Start 07/06/20 at 16:00; Stop 07/13/20 at 12:37; Status DC Ascorbic Acid (Vitamin C) 500 mg Q6HRS PO Last administered on 07/14/20 09:31; Start 07/06/20 at 18:00 Zinc Sulfate (Orazinc) 220 mg DAILY PO Last administered on 07/14/20 09:31; Start 07/06/20 at 17:00 Vitamin D (Vitamin D3) 5,000 unit DAILY PO Last administered on 07/14/20 09:31; Start 07/06/20 at 16:00 Ondansetron HCl (Zofran) 4 mg PRN Q6HRS PRN IVP NAUSEA/VOMITING; Start 07/06/20 at 16:15 Famotidine (Pepcid Vial) 20 mg Q48H IVP Last administered on 07/09/20at 00:36; Start 07/06/20 at 21:00; Stop 07/09/20 at 13:55; Status DC Enoxaparin Sodium (Lovenox 30mg Syringe) 30 mg Q24H SQ Last administered on 07/08/20at 18:46; Start 07/06/20 at 17:00; Stop 07/09/20 at 13:52; Status DC Sodium Chloride (Normal Saline Flush) 3 ml QSHIFT PRN IV AFTER MEDS AND BLOOD DRAWS; Start 07/06/20 at 16:15 Acetaminophen (Tylenol) 650 mg PRN Q6HRS PRN PO MILD PAIN / TEMP > 100.3'F; Start 07/06/20 at 20:00 Vitamin B Complex/ Vitamin C (Citlali-Pavel) 1 tab DAILY PO Last administered on 07/14/20at 09:31; Start 07/07/20 at 09:00 Acetaminophen/ Hydrocodone Bitart (Lortab 5/325) 1 tab PRN Q4HRS PRN PO MODERATE-SEVERE PAIN; Start 07/06/20 at 20:00 Pantoprazole Sodium (Protonix) 40 mg DAILYAC PO Last administered on 07/14/20at 09:31; Start 07/07/20 at 07:30 Polyethylene Glycol (miraLAX PACKET) 17 gm DAILY PO Last administered on 07/14/20at 09:31; Start 07/07/20 at 09:00 Calcium Acetate (Phoslo) 1,334 mg TIDWMEALS PO Last administered on 07/14/20at 09:31; Start 07/07/20 at 08:00 Piperacillin Sod/ Tazobactam Sod (Zosyn Per Pharmacy) 1 each PRN DAILY PRN MC SEE COMMENTS; Start 07/07/20 at 10:45; Stop 07/13/20 at 18:10; Status DC Piperacillin Sod/ Tazobactam Sod 2.25 gm/Sodium Chloride 50 ml @ 100 mls/hr Q6HRS IV ; Start 07/07/20 at 11:00; Status Cancel Piperacillin Sod/ Tazobactam Sod 2.25 gm/Sodium Chloride 50 ml @ 100 mls/hr Q8HRS IV Last administered on 07/13/20at 05:42; Start 07/07/20 at 11:30; Stop 07/13/20 at 12:37; Status DC Lactobacillus Rhamnosus (Culturelle) 1 cap BID PO Last administered on 07/14/20at 09:31; Start 07/07/20 at 12:00 Sodium Chloride 1,000 ml @ 1,000 mls/hr Q1H PRN IV hypotension; Start 07/07/20 at 17:00; Stop 07/07/20 at 22:59; Status DC Albumin Human 200 ml @ 200 mls/hr 1X PRN PRN IV Hypotension; Start 07/07/20 at 17:00; Stop 07/07/20 at 22:59; Status DC Sodium Chloride 1,000 ml @ 400 mls/hr Q2H30M PRN IV PATENCY; Start 07/07/20 at 17:00; Stop 07/08/20 at 04:59; Status DC Info (PHARMACY MONITORING -- do not chart) 1 each PRN DAILY PRN MC SEE COMMENTS; Start 07/07/20 at 18:15; Stop 07/08/20 at 15:54; Status DC Info (PHARMACY MONITORING -- do not chart) 1 each PRN DAILY PRN MC SEE COMMENTS; Start 07/07/20 at 18:15; Stop 07/10/20 at 19:07; Status DC Hydralazine HCl (Apresoline Inj) 10 mg PRN Q4HRS PRN IVP ELEVATED BP, SEE COMMENTS Last administered on 07/09/20at 08:39; Start 07/09/20 at 08:15 Heparin Sodium (Porcine) (Heparin Sodium) 5,000 unit Q8HRS SQ Last administered on 07/14/20at 06:00; Start 07/09/20 at 22:00 Famotidine (Pepcid) 20 mg Q48H PO Last administered on 07/12/20at 21:58; Start 07/10/20 at 21:00 Sodium Chloride 1,000 ml @ 1,000 mls/hr Q1H PRN IV hypotension; Start 07/10/20 at 15:40; Stop 07/10/20 at 21:39; Status DC Albumin Human 200 ml @ 200 mls/hr 1X PRN PRN IV Hypotension; Start 07/10/20 at 15:45; Stop 07/10/20 at 21:44; Status DC Diphenhydramine HCl (Benadryl) 25 mg 1X PRN PRN IV ITCHING; Start 07/10/20 at 15:45; Stop 07/11/20 at 15:44; Status DC Diphenhydramine HCl (Benadryl) 25 mg 1X PRN PRN IV ITCHING; Start 07/10/20 at 15:45; Stop 07/11/20 at 15:44; Status DC Sodium Chloride (Normal Saline Flush) 10 ml 1X PRN PRN IV AP catheter pack; Start 07/10/20 at 15:45; Stop 07/11/20 at 15:44; Status DC Sodium Chloride (Normal Saline Flush) 10 ml 1X PRN PRN IV COMPENSATION AND BENEFITS ADVISOR catheter pack; Start 07/10/20 at 15:45; Stop 07/11/20 at 15:44; Status DC Sodium Chloride 1,000 ml @ 400 mls/hr Q2H30M PRN IV PATENCY; Start 07/10/20 at 15:40; Stop 07/11/20 at 03:39; Status DC Info (PHARMACY MONITORING -- do not chart) 1 each PRN DAILY PRN MC SEE COMMENTS; Start 07/10/20 at 15:45 Dextrose (Dextrose 50%-Water Syringe) 12.5 gm PRN Q15MIN PRN IV SEE COMMENTS; Start 07/10/20 at 19:00 Lorazepam (Ativan) 0.5 mg PRN BID PRN PO ANXIETY / AGITATION Last administered on 07/13/20at 23:24; Start 07/11/20 at 17:00 Sodium Chloride 1,000 ml @ 1,000 mls/hr Q1H PRN IV hypotension; Start 07/12/20 at 09:34; Stop 07/12/20 at 15:33; Status DC Albumin Human 200 ml @ 200 mls/hr 1X PRN PRN IV Hypotension; Start 07/12/20 at 09:45; Stop 07/12/20 at 15:44; Status DC Sodium Chloride 1,000 ml @ 400 mls/hr Q2H30M PRN IV PATENCY; Start 07/12/20 at 09:34; Stop 07/12/20 at 21:33; Status DC Info (PHARMACY MONITORING -- do not chart) 1 each PRN DAILY PRN MC SEE COMMENTS; Start 07/12/20 at 09:45; Status UNV Info (PHARMACY MONITORING -- do not chart) 1 each PRN DAILY PRN MC SEE COMMENTS; Start 07/12/20 at 09:45; Status Cancel Methylprednisolone Sodium Succinate (SOLU-Medrol 40MG VIAL) 40 mg DAILY IV Last administered on 07/14/20at 09:31; Start 07/14/20 at 09:00; Stop 07/19/20 at 09:00 Sodium Chloride 1,000 ml @ 1,000 mls/hr Q1H PRN IV hypotension; Start 07/14/20 at 05:45; Stop 07/14/20 at 11:44 Albumin Human 200 ml @ 200 mls/hr 1X PRN PRN IV Hypotension; Start 07/14/20 at 05:45; Stop 07/14/20 at 11:44 Sodium Chloride 1,000 ml @ 400 mls/hr Q2H30M PRN IV PATENCY; Start 07/14/20 at 05:45; Stop 07/14/20 at 17:44 Info (PHARMACY MONITORING -- do not chart) 1 each PRN DAILY PRN MC SEE COMMENTS; Start 07/14/20 at 07:30 Info (PHARMACY MONITORING -- do not chart) 1 each PRN DAILY PRN MC SEE COMMENTS; Start 07/14/20 at 07:30 Active Scripts Active Hydrocodone-Apap 5-325 (Hydrocodone Bit/Acetaminophen) 1 Each Tablet 1 Tab PO PRN Q4HRS PRN Children's Aspirin (Aspirin) 81 Mg Tab.chew 81 Mg PO DAILYWBKFT Reported Proair Hfa Inhaler (Albuterol Sulfate) 8.5 Gm Hfa.aer.ad 2 Puff INH PRN Q4HRS PRN Ativan (Lorazepam) 0.5 Mg Tablet 0.5 Mg PO PRN BID PRN Pantoprazole Sodium 40 Mg Tablet.dr 40 Mg PO BIDAC Estradiol 42.5 Gm Cream.appl 1 Jeyson VAG DAILY Vital Signs Vital Signs Date Time Temp Pulse Resp B/P (MAP) Pulse Ox O2 Delivery O2 Flow Rate FiO2 07/14/20 03:52 53 16 93/54 (67) 94 Nasal Cannula 2.0 07/13/20 23:53 97.7 97.7 Labs Laboratory Tests Test 07/13/20 04:35 White Blood Count 12.3 x10^3/uL (4.0-11.0) Red Blood Count 3.38 x10^6/uL (3.50-5.40) Hemoglobin 11.3 g/dL (12.0-15.5) Hematocrit 33.5 % (36.0-47.0) Mean Corpuscular Volume 99 fL (79-100) Mean Corpuscular Hemoglobin 33 pg (25-35) Mean Corpuscular Hemoglobin Concent 34 g/dL (31-37) Red Cell Distribution Width 15.1 % (11.5-14.5) Platelet Count 477 x10^3/uL (140-400) Neutrophils (%) (Auto) 92 % (31-73) Lymphocytes (%) (Auto) 5 % (24-48) Monocytes (%) (Auto) 3 % (0-9) Eosinophils (%) (Auto) 0 % (0-3) Basophils (%) (Auto) 0 % (0-3) Neutrophils # (Auto) 11.3 x10^3/uL (1.8-7.7) Lymphocytes # (Auto) 0.6 x10^3/uL (1.0-4.8) Monocytes # (Auto) 0.4 x10^3/uL (0.0-1.1) Eosinophils # (Auto) 0.0 x10^3/uL (0.0-0.7) Basophils # (Auto) 0.0 x10^3/uL (0.0-0.2) Sodium Level 137 mmol/L (136-145) Potassium Level 5.2 mmol/L (3.5-5.1) Chloride Level 98 mmol/L (98-107) Carbon Dioxide Level 27 mmol/L (21-32) Anion Gap 12 (6-14) Blood Urea Nitrogen 61 mg/dL (7-20) Creatinine 4.4 mg/dL (0.6-1.0) Estimated GFR (Cockcroft-Gault) 9.5 BUN/Creatinine Ratio 14 (6-20) Glucose Level 158 mg/dL (70-99) Calcium Level 8.1 mg/dL (8.5-10.1) Total Bilirubin 0.5 mg/dL (0.2-1.0) Aspartate Amino Transf (AST/SGOT) 44 U/L (15-37) Alanine Aminotransferase (ALT/SGPT) 71 U/L (14-59) Alkaline Phosphatase 133 U/L (46-116) Total Protein 6.9 g/dL (6.4-8.2) Albumin 2.3 g/dL (3.4-5.0) Albumin/Globulin Ratio 0.5 (1.0-1.7) Allergies Allergies Coded Allergies Type Severity Reaction Last Updated Verified No Known Drug Allergies 04/27/16 No Disposition/Orders: D/C to Home w/ HH Justicifation of Admission Dx: Justifications for Admission: Justification of Admission Dx: Yes Chronic Renal Failure: Hemodynamic Instability FELICITA KHAN MD Jul 14, 2020 11:25
[2020-07-14] MEDS ORDERED: ZINC220C2 PO (11:30)
[2020-07-14] MEDS ORDERED: LACT1CAP19 PO (11:30)
[2020-07-14] MEDS ORDERED: Calcium Acetate PO (11:30)
[2020-07-14] MEDS ORDERED: POLY17PO28 PO (11:30)
[2020-07-14] MEDS ORDERED: FOLI0.8T21 PO (11:30)
[2020-07-14] MEDS ORDERED: ASCO500T4 PO (11:30)
[2020-07-14] MEDS ORDERED: CHOL500051 PO (11:30)
[2020-07-14] MEDS ORDERED: ACET325T9 PO (11:30)
--- NOTE | 2020-07-14 11:32 | SNU/HH DC ---
DISCHARGE WITH HOME HEALTH DISCHARGE INFORMATION: Final Diagnosis: Problems Medical Problems: (1) Acute dyspnea Status: Acute (2) ESRD (end stage renal disease) on dialysis Status: Acute (3) Suspected 2019 novel coronavirus infection Status: Acute Condition on Discharge: Stable CODE STATUS: Code Status: Full HOME HEALTH: Face to Face: I certify this patient is under my care and that I, or a nurse practitioner or physician's office support assistant working with me, had a face to face encounter that meets the physician face to face encounter requirements with this patient on []. Medical Complications: Pneumonia Senior Living For: Admin/Educate Injections, Assess Cardiopulm Status, Assess & Educate Safety, Assess/Skilled Observatio, Medication Management RN For Eval/Treatment: Yes Physical Therapy For: Evalulation/Treatment Occupational Therapy For: Evaluation/Treatment Speech Language Pathology For: Evaluation/Treatment Home Health Aide For: Self-care RN INTEGRITY For: Community Resources Pt Meets Homebound Status: Fatigue w/ amb. POST DISCHARGE ORDERS: Activity Instructions for Disc: Activity as tolerated Weight Bearing Status after Di: Full weight bearing DIET AFTER DISCHARGE: Cardiac Wound/Incision Care: Ice to area for comfort CHECKS AFTER DISCHARGE: Checks after discharge: Check blood press - daily FOLLOW-UP: PCP to follow Home Health: 1 DAY Follow up with: PCP 2 DAYS TREATMENT/EQUIPMENT ORDERS: Adaptive Equipment Issued: None, Front wheeled walker Discharge Respiratory Equipmen: Oxygen CERTIFICATION STATEMENT: Certification Statement: Certification Statement: Based on the above finding, I certify that this patient is confined to the home and needs intermittent penitentiary care, physical therapy and/or speech therapy, or continues to need occupational therapy.~ This patient is under my care, and I have initiated the establishment of the plan of care.~ This patient will be followed by myself or a community physician who will periodically review the plan of care. Home Meds Active Scripts Cholecalciferol (Vitamin D3) (Vitamin D3) 125 Mcg Capsule, 5000 UNIT PO DAILY for SUPPLEMENT for 30 Days, #30 CAP Prov:FELICITA KHAN MD 07/14/20 Ascorbic Acid (VITAMIN C) 500 Mg Tablet, 500 MG PO Q6HRS for SUPPLEMENT for 30 Days, #120 TAB Prov:FELICITA KHAN MD 07/14/20 Folic Acid/Vitamin B Comp W-C (MYA-VENUS TABLET) 0.8 Mg Tablet, 1 TAB PO DAILY for SUPPLEMENT for 30 Days, #30 TAB Prov:FELICITA KHAN MD 07/14/20 Lactobacillus Rhamnosus Gg (CULTURELLE) 1 Each Cap.sprink, 1 CAP PO BID for SUPPLEMENT for 30 Days, #60 CAP Prov:FELICITA KHAN MD 07/14/20 Polyethylene Glycol 3350 (POLYETHYLENE GLYCOL 3350) 17 Gm Powd.pack, 17 GM PO DAILY for STOOLS for 30 Days, #30 PKT Prov:FELICITA KHAN MD 07/14/20 [Calcium Acetate] 667 MG CAPSULE No Conflict Check, 1334 MG PO TIDWMEALS for KIDNEYS for 30 Days, #100 Prov:FELICITA KHAN MD 07/14/20 Zinc Sulfate (ORAZINC) 220 Mg Capsule, 220 MG PO DAILY for SUPPLEMENT for 30 Days, #30 CAP Prov:FELICITA KHAN MD 07/14/20 Acetaminophen (TYLENOL) 325 Mg Tablet, 650 MG PO PRN Q6HRS PRN for MILD PAIN / TEMP > 100.3'F for 30 Days, #60 TAB Prov:FELICITA KHAN MD 07/14/20 Aspirin (Children's Aspirin) 81 Mg Tab.chew, 81 MG PO DAILYWBKFT, #30 TAB.CHEW Prov:CORIN RAMIREZ MD 12/09/16 Reported Medications Albuterol Sulfate (PROAIR HFA INHALER) 8.5 Gm Hfa.aer.ad, 2 PUFF INH PRN Q4HRS PRN for SHORTNESS OF BREATH 07/06/20 Lorazepam (ATIVAN) 0.5 Mg Tablet, 0.5 MG PO PRN BID PRN for ANXIETY / AGITATION 07/06/20 Pantoprazole Sodium (Pantoprazole Sodium) 40 Mg Tablet.dr, 40 MG PO BIDAC for acid reduction 07/06/20 Estradiol (Estradiol) 42.5 Gm Cream.appl, 1 CLAUDIA VAG DAILY for hormone replace ment 07/06/20 Discontinued Scripts Hydrocodone Bit/Acetaminophen (HYDROCODONE-APAP 5-325 ) 1 Each Tablet, 1 TAB PO PRN Q4HRS PRN for PAIN, #30 TAB Prov:CORIN RAMIREZ MD 12/09/16 FELICITA KHAN MD Jul 14, 2020 11:32
[2020-07-14 11:37] VITALS: BP 120/59
--- NOTE | 2020-07-14 12:42 | PDOC ---
Renal-Progress Notes Subjective Notes Notes NO NEW COMPLAINTS History of Present Illness Hx of present illness STABLE Vitals Vitals Vital Signs Date Time Temp Pulse Resp B/P (MAP) Pulse Ox O2 Delivery O2 Flow Rate FiO2 07/14/20 11:37 72 16 120/59 (79) 97 Nasal Cannula 2.0 07/13/20 23:53 97.7 97.7 Weight Weight [ ] I.O. Intake and Output Intake and Output 07/14/20 06:59 Intake Total 580 ml Balance 580 ml Intake Oral 580 ml # Voids 3 # Bowel Movements 1 Micro Micro Microbiology 07/06/20 Blood Culture - Final, Complete NO GROWTH AFTER 5 DAYS Review of Systems Constitutional: yes: weakness, alert, oriented Ears/Nose/Throat: Yes: no symptom reported Eyes: Yes: no symptom reported Pulmonary: Yes dyspnea Cardiovascular: Yes no symptom reported Gastrointestional: Yes: no symptom reported Musculoskeletal: Yes: no symptom reported Skin: Yes no symptom reported Psychiatric/Neurological: Yes: no symptom reported Endocrine: Yes: no symptom reported Physical Exam General Appearance: no apparent distress, afebrile Skin: warm Respiratory: bilateral CTA Heart: S1S2 Abdomen: soft, bowel sounds present Extremities: pulses present Neurology: alert Musculoskeletal: Other Assessment Assessment IMP ESRD ACUTE RESP FAILURE ACUTE D CHF ANEMIA COVID 19 ISOLATION PLAN HD TODAY UF TO DW SUPPLEMENTAL O2 PLACEMENT PENDING SYLVIE NEEDED ENC FLUID RESTRICTIONS ANTHONY VILA MD Jul 14, 2020 12:42
--- NOTE | 2020-07-14 12:59 | NUR ---
SW following. Reviewed chart and spoke with RN. Pt clear for discharge home today to quarantine per COVID. HH orders obtained from Dr. Finney. JOCY phoned and faxed clinicals and discharge orders to [facility]. 6 min results back and pt does not need 02. SW notified [facility] of no 02 setup needs. Pt to discharge on room air and oral medications (no IV abx setup needed). Spoke with Rufina [facility] and pt will do outpatient dialysis at the [facility] (confirmed address) per COVID positive status. SW waiting to hear back on a chair time. JOCY did fax clinicals and discharge orders to [facility] in [place]. [facility] in [address] [address] (phone) [phone] (fax) Addendum: 07/14/20 at 1423 by LINSEY SANDRA Spoke with Rufina from [facility] and faxed dialysis runs from this admission. Pt normally does dialysis on MWF (did go to dialysis today, Friday) but she will go TRS at 12:15pm at the [facility] as that is when they do dialysis for COVID positive patients. Pt's first treatment is tomorrow, 07/15/2020 and she is to arrive at 12pm for 12:15pm chair time and enter through the [facility] door. Pt clear for discharge today. RN notified. JOCY called granddaughter to update. No further SW needs at this time.
[2020-07-14 15:35] VITALS: BP 125/66
== END 2020-07-14 18:00 | disposition home health service (06) | DRG 177 ==
LOC: ER 13:15 → 6 SOUTH 15:36 → 1 WEST ICU 16:43 → ED HOLD 17:15 → 1 WEST ICU 19:35 → 6 SOUTH 07-07 16:41
PROVIDERS: ADMIT Family Medicine; ATTEND Family Medicine
PROC: 5A1D70Z Performance of Urinary Filtration, Intermittent, Less than 6 Hours Per Day (ICD-10-PCS; principal; 2020-07-07)
PROC: 5A1D70Z Performance of Urinary Filtration, Intermittent, Less than 6 Hours Per Day (ICD-10-PCS; 2020-07-10)
PROC: 5A1D70Z Performance of Urinary Filtration, Intermittent, Less than 6 Hours Per Day (ICD-10-PCS; 2020-07-12)
PROC: 5A1D70Z Performance of Urinary Filtration, Intermittent, Less than 6 Hours Per Day (ICD-10-PCS; 2020-07-14)
DX: U07.1 COVID-19 (principal); J12.89 Other viral pneumonia; N18.6 End stage renal disease; J96.01 Acute respiratory failure with hypoxia; E43 Unspecified severe protein-calorie malnutrition; I50.31 Acute diastolic (congestive) heart failure; I13.2 Hypertensive heart and chronic kidney disease with heart failure and with stage 5 chronic kidney disease, or end stage renal disease; D63.1 Anemia in chronic kidney disease; F41.9 Anxiety disorder, unspecified; K21.9 Gastro-esophageal reflux disease without esophagitis; M19.90 Unspecified osteoarthritis, unspecified site; R41.0 Disorientation, unspecified; M85.80 Other specified disorders of bone density and structure, unspecified site; R41.89 Other symptoms and signs involving cognitive functions and awareness; Z68.23 Body mass index [BMI] 23.0-23.9, adult; Z99.2 Dependence on renal dialysis
CPT/HCPCS: 36415; 71045; 80048; 80053; 82728; 83605; 83615; 83690; 83880; 84145; 84484; 85007; 85025; 85379; 85610; 85730; 86140; 87040; 93005; 94618; J0360; J1644; J1650; J2543; J2920; J3490; 97530-GP; 99285-25; G0378; U0003-CS